=== PATIENT | female | born 1975 | race Caucasian/White ===

== ENCOUNTER 2018-05-05 12:47 | Emergency (ER) | payer OTHER, SELFPAY ==
[2018-05-05 12:48] VITALS: BP 147/97; PULSE 81; RESP 16; TEMP 37.1; O2SAT 98; BMI 22.3
[2018-05-05 12:57] VITALS: BP 148/99; PULSE 80; RESP 14; O2SAT 100
--- NOTE | 2018-05-05 13:08 | RAD_ITS ---
STUDY: X-RAY CHEST REASON FOR EXAM: Female, 43 years old. Chest pain. Prior bilateral mastectomy with reconstructive surgery. TECHNIQUE: PA and lateral views of the chest. COMPARISON: Comparison is made with prior study dated June 17, 2014. FINDINGS: EKG electrodes are seen. Surgical clips are seen in both axillary regions more prominent on the right side. The lungs are clear and expanded. There is no demonstrated pleural abnormality. Normal size heart. Normal mediastinum and anthony. Normal visualized pulmonary arteries. Normal visualized aortic arch and descending thoracic aorta. There is a mild dextroscoliosis of the thoracic spine. Normal visualized ribs, clavicles, and shoulders. There is no demonstrated abnormality of the visualized soft tissue structures of the upper abdomen. RAD/Chest PA and Lateral IMPRESSION: No acute abnormality is seen. Electronically Signed: Dakota Anaya MD at 13:56 EDT Tel [phone], Service support ,
[2018-05-05 13:25] LABS: Absolute Lymphocyte Count 1.52 X10^3/ul (0.83-4.51); Absolute Neutrophil Count 3.7 X10^3/uL (2.0-7.7); Basophil# 0.01 X10^3/uL; Basophil% 0.2 % (0-1); Eosinophil# 0.09 X10^3/uL; Eosinophils% 1.6 % (0-5); Hematocrit 37.8 % (37-47); Hemoglobin 13.1 g/dl (12.0-15.0); Lymphocyte # 1.52 X10^3/ul (4.0); Lymphocyte % 26.9 % (19-41); Mean Corp Hgb Conc 34.7 g/gl (32-36); Mean Corpuscular Hgb 31.6 pg (27.0-32.0); Mean Corpuscular Volume 91.1 fL (81-99); Mean Platelet Vol. 9.5 fl (6.2-12.0); Monocyte# 0.28 X10^3/uL; Neutrophil # 3.74 X10^3/uL (2.7-7.7); Neutrophil % 66.1 % (47-70); Platelet Count 208 K/mm3 (150-450); RBC Distribution Width CV 13.3 % (11.6-14.6); RBC Distribution Width SD 43.8 fl (35.1-43.9); Red Blood Count 4.15 M/mm3 (4.2-5.4); White Blood Count 5.7 K/mm3 (4.4-11.0)
--- NOTE | 2018-05-05 13:27 | EKG12_ITS ---
Test Reason : CP Blood Pressure : / mmHG Vent. Rate : 074 BPM Atrial Rate : 074 BPM P-R Int : 112 ms QRS Dur : 092 ms QT Int : 388 ms P-R-T Axes : 000 -49 048 degrees QTc Int : 430 ms Normal sinus rhythm Left anterior fascicular block Poor R wave progression Abnormal ECG Confirmed by NGUYEN SHIPMAN, KAY ([id number]), magazine editor MADHAVI LO ([id number]) on 05/07/2018 2:21:57 PM Referred By: Confirmed By:KAY CEDILLO MD
[2018-05-05 13:28] LABS: POSITIVE COUNT NO; POSITIVE DIFFERENTIAL NO; POSITIVE MORPHOLOGY NO
[2018-05-05 13:35] LABS: AST(SGOT) 16 U/L (15-37); Alanine Aminotransfer ALT/SGPT 17 U/L (13-56); Albumin, Serum 3.3 g/dL (3.2-5.0); Alkaline Phosphatase 59 U/L (45-117); Anion Gap 7 (5-15); BUN 13 mg/dL (7-18); BUN/Creat Ratio 14.1 RATIO (10-20); Calcium,Total 8.3 mg/dL (8.5-10.1); Chloride 105 mmol/L (98-107); Creatinine, Serum 0.92 mg/dL (0.55-1.02); EST Glomerular Filtration Rate 71 mL/min (>60); Est Glom Filt Rate - Afr Amer 86 mL/min (>60); Estimated Creatinine Clearance 72.41 ml/min; Globulin 3.4 g/dL (2.2-4.2); Glucose 97 mg/dL (74-106); Potassium 3.3 mmol/L (3.5-5.1); Protein, Total 6.7 g/dL (6.4-8.2); Sodium Level 140 mmol/L (136-145)
[2018-05-05 15:06] VITALS: BP 130/94; PULSE 69; RESP 16; O2SAT 99
--- NOTE | 2018-05-05 15:12 | ED.VISSUMM ---
- ER Visit Summary Date of Service: 05/05/18 Chief Complaint: Sharp intermittent mid chest pain with dyspnea History of Present Illness: The patient is a 43 F who is status post liver transplant and bilateral mastectomy. 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 She has remote history of PE and DVT. She denies fever, chills night sweats. She denies weight loss or weight gain. She denies ocular, visual or auditory symptoms. She denies history of reflux or hiatal hernia. She denies hematemesis, melena hematochezia. She denies food intolerance. She denies back pain. She denies leg pain, swelling discoloration. Please read written note for complete detail Physical Examination: Vital signs noted and blood pressure is slightly elevated 148/97. She admits she is slightly anxious. HEENT exam is unremarkable. Lungs are clear to auscultation with good movement of air bilaterally. Heart is regular without murmur, gallop or rub. There is no reproducible chest pain. There is no skin lesions. Abdomen is remarkable for well-healed remote incision. There is no hepatosplenomegaly. There is no tenderness, guarding or perineal findings. There is no CVA tenderness. Insert lower extremity DVT. Neuro exam is nonfocal. Test Results: EKG sinus rhythm rate of 74 with left anterior fascicular block and decreased anterior force. SD interval is normal. QRS duration is slightly prolonged. [place] is to the left. QT interval is normal. Two-view chest x-ray reveals no acute process. Breast implants noted. No infiltrate, effusion or pneumothorax. Mediastinum is normal. Cardiac silhouette is normal. CBC and hepatic are normal. Electro panels marked for a slight decrease in potassium, 3.3. Emergency Department Course and Treatment: Chest x-ray was obtained to evaluate for pneumothorax or other cause of chest pain. EKG to evaluate for cardiac ischemia. Also to evaluate for right heart strain in the event this would represent atypical presentation for pulmonary embolus. With 5 episodes of pain lasting less than 3-5 minutes in duration and described as sharp with negative workup plan is to discharge to home and follow-up with primary care provider. She informed me that her primary care finders has retired from the [facility]. Since all of her care has been at the [facility] she is requesting a [facility] position. Treatment Plan: Outpatient follow-up as needed Disposition: Discharged home Impression: Intermittent mid chest pain of unknown etiology Liver recipient History of malignant carcinoid History of breast cancer status post bilateral mastectomy This note was generated with [employer] dictation software. It may contain incorrect words, spelling, and punctuation that were not noted in review of the chart prior to signing ED Disposition - Plan for ED Patient: Disposition: Home or Assisted Living Chief Complaint: Chest Pain Instructions: ED Chest Pain NonCardiac Referrals: Care Physician,No Primary [Primary Care Provider] - Phillip Mata Jr. [HONORARY STAFF] - 3-5 Days
--- NOTE | 2018-05-05 15:16 | ED.DCSUM_ITS ---
- ER Visit Summary Date of Service: 05/05/18 Chief Complaint: Sharp intermittent mid chest pain with dyspnea History of Present Illness: The patient is a 43 F who is status post liver transplant and bilateral mastectomy. 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 She has remote history of PE and DVT. She denies fever, chills night sweats. She denies weight loss or weight gain. She denies ocular, visual or auditory symptoms. She denies history of reflux or hiatal hernia. She denies hematemesis, melena hematochezia. She denies food intolerance. She denies back pain. She denies leg pain, swelling discoloration. Please read written note for complete detail Physical Examination: Vital signs noted and blood pressure is slightly elevated 148/97. She admits she is slightly anxious. HEENT exam is unremarkable. Lungs are clear to auscultation with good movement of air bilaterally. Heart is regular without murmur, gallop or rub. There is no reproducible chest pain. There is no skin lesions. Abdomen is remarkable for well-healed remote incision. There is no hepatosplenomegaly. There is no tenderness, guarding or perineal findings. There is no CVA tenderness. Insert lower extremity DVT. Neuro exam is nonfocal. Test Results: EKG sinus rhythm rate of 74 with left anterior fascicular block and decreased anterior force. [place] interval is normal. QRS duration is slightly prolonged. [place] is to the left. QT interval is normal. Two-view chest x-ray reveals no acute process. Breast implants noted. No infiltrate, effusion or pneumothorax. Mediastinum is normal. Cardiac silhouette is normal. CBC and hepatic are normal. Electro panels marked for a slight decrease in potassium, 3.3. Emergency Department Course and Treatment: Chest x-ray was obtained to evaluate for pneumothorax or other cause of chest pain. EKG to evaluate for cardiac ischemia. Also to evaluate for right heart strain in the event this would represent atypical presentation for pulmonary embolus. With 5 episodes of pain lasting less than 3-5 minutes in duration and described as sharp with negative workup plan is to discharge to home and follow-up with primary care provider. She informed me that her primary care finders has retired from the [facility]. Since all of her care has been at the [facility] she is requesting a [facility] position. Treatment Plan: Outpatient follow-up as needed Disposition: Discharged home Impression: Intermittent mid chest pain of unknown etiology Liver recipient History of malignant carcinoid History of breast cancer status post bilateral mastectomy This note was generated with [employer] dictation software. It may contain incorrect words, spelling, and punctuation that were not noted in review of the chart prior to signing ED Disposition - Plan for ED Patient: Disposition: Home or Assisted Living Chief Complaint: Chest Pain Instructions: ED Chest Pain NonCardiac Referrals: Care Physician,No Primary [Primary Care Provider] - Phillip Mata Jr. [HONORARY STAFF] - 3-5 Days
[2018-05-05 15:23] VITALS: BP 130/94; PULSE 81; RESP 15; O2SAT 98
--- NOTE | 2018-05-05 15:23 | ED.RN ---
REVIEWED D/C INSTRUCTIONS, FOLLOW UP CARE, AND S/S THAT WOULD WARRANT A RETURN TO THE ED WITH PT. PT VERBALIZED AN UNDERSTANDING AND DENIES FURTHER QUESTIONS FOR THIS RN. PT SKIN P/W/D, RESP EVEN AND UNLABORED, PT A&O X 3, NO DISTRESS NOTED. PT AMBULATED OUT OF ED, GAIT STEADY.
== END 2018-05-05 15:24 | disposition home or self-care (01) ==
PROVIDERS: Emergency Provider Emergency Medicine
DX: R07.9 Chest pain, unspecified (principal); Z94.4 Liver transplant status; Z90.13 Acquired absence of bilateral breasts and nipples; Z85.05 Personal history of malignant neoplasm of liver; Z85.3 Personal history of malignant neoplasm of breast; Z86.711 Personal history of pulmonary embolism; Z86.718 Personal history of other venous thrombosis and embolism
CPT/HCPCS: 71046; 80053; 85025; 93005; 99284; A4216

== ENCOUNTER → 2018-06-07 07:00 | Outpatient (CLI) | payer OTHER, SELFPAY ==
--- NOTE | 2018-06-07 07:06 | CT_ITS ---
STUDY: CT MAXILLOFACIAL SINUSES REASON FOR EXAM: Female, 43 years old. Sinus polyps, congestion x 4 months, prior septoplasty.. RADIATION DOSAGE (If Supplied By Facility): CTDIvol = ( 29.38 ) mGy, DLP = ( 400.54 ) mGycm TECHNIQUE: The patient was scanned in a multi detector CT scanner. High resolution axial imaging was performed without the administration of intravenous contrast material. Sagittal and coronal images were reconstructed. Individualized dose optimization techniques were used for this CT. COMPARISON: None. FINDINGS: FRONTAL SINUSES: Normal aeration, without mucosal inflammatory disease. ETHMOIDAL SINUSES: Normal aeration, without mucosal inflammatory disease. MAXILLARY SINUSES: There is small right maxillary polyp versus mucous retention cyst. There is complete opacification of the left maxillary sinus with obstruction of the infundibulum. Additionally there is medial wall defect where soft tissue (measuring approximately 1.7 x 3.8 x 2.2 cm) and extends between the middle and inferior turbinates and extending posteriorly into the nasopharynx SPHENOIDAL SINUSES: Normal aeration, without mucosal inflammatory disease. There is patency of the bilateral maxillary infundibuli with normal uncinate processes, ethmoid bullae, and hiatus semilunaris. Normal bilateral middle turbinates. Normal bilateral inferior turbinates. There is mild deviation of the nasal septum. The visualized osseous structures are normal. The visualized bilateral orbital contents are normal. CT/Sinus/Facial Bone IMPRESSION: Left maxillary soft tissue extending into the nasal cavity and nasopharynx as described above. N.B. : The above information has been verbally conveyed by Jeremy Martinez MD to Berta Tapia NP, on 06/10/2018 11:24:26 (ET). Electronically Signed: Jeremy Martinez MD at 16:02 EDT Tel , Service support ,
== END ==
LOC: CT 07:01
PROVIDERS: Referring Provider Otolaryngology Otolaryngology/Facial Plastic Surgery; Visit Provider Otolaryngology Otolaryngology/Facial Plastic Surgery
DX: J33.9 Nasal polyp, unspecified (principal)
CPT/HCPCS: 70486

== ENCOUNTER → 2018-07-03 09:15 | Outpatient (CLI) | payer OTHER, SELFPAY ==
[2018-07-03 11:03] LABS: Hematocrit 39.4 % (37-47); Hemoglobin 13.5 g/dl (12.0-15.0); Mean Corp Hgb Conc 34.3 g/gl (32-36); Mean Corpuscular Hgb 31.7 pg (27.0-32.0); Mean Corpuscular Volume 92.5 fL (81-99); Platelet Count 206 K/mm3 (150-450); RBC Distribution Width CV 13.8 % (11.6-14.6); RBC Distribution Width SD 45.6 fl (35.1-43.9); Red Blood Count 4.26 M/mm3 (4.2-5.4); White Blood Count 6.4 K/mm3 (4.4-11.0)
[2018-07-03 11:06] LABS: Scan Indicated on CBC? Y/N NO
[2018-07-03 11:24] LABS: ALB/GLOB Ratio 0.9 RATIO (0.9-2.4); AST(SGOT) 17 U/L (15-37); Alanine Aminotransfer ALT/SGPT 21 U/L (13-56); Albumin, Serum 3.4 g/dL (3.2-5.0); Alkaline Phosphatase 62 U/L (45-117); Anion Gap 7 (5-15); BUN 12 mg/dL (7-18); BUN/Creat Ratio 16.9 RATIO (10-20); Calcium,Total 8.2 mg/dL (8.5-10.1); Chloride 105 mmol/L (98-107); Creatinine, Serum 0.71 mg/dL (0.55-1.02); EST Glomerular Filtration Rate 96 mL/min (>60); Est Glom Filt Rate - Afr Amer 116 mL/min (>60); Globulin 3.6 g/dL (2.2-4.2); Glucose 76 mg/dL (74-106); Potassium 3.6 mmol/L (3.5-5.1); Sodium Level 142 mmol/L (136-145)
== END ==
PROVIDERS: Referring Provider Otolaryngology; Visit Provider Otolaryngology
DX: Z01.818 Encounter for other preprocedural examination (principal)
CPT/HCPCS: 36415; 80053; 85027

== ENCOUNTER → 2018-07-08 16:11 | Outpatient (CLI) | payer OTHER, SELFPAY ==
--- NOTE | 2018-07-08 | ETH_PTH ---
PATIENT: GARETH GALLO LOC: [facility] U#:[id number] AGE/SX: 50/F ROOM: RE07/08/[address]: Dr. Harlan Ag MD : 1975 BED: DIS: SPEC #: [id number] RECD: 07/08/18 15:35 STATUS: ARLIN REQ #: [id number] NICHOLAS: 07/08/18 00:[address]: Harlan Ag DEPT: SURGICAL PATHOLOGY RECD BY: Stef Bautista ENTERED: 07/09/18 10:31 SP TYPE: ETH TISS OTHR DR: Dr. Katie Aragon MD No Primary Care Phys WASC Tissues: A - Ethmoid sinus, NOS B - Ethmoid sinus, NOS C - NASAL POLYP Procedures: Decalcification bone/plaque Surgery Specimen Level III Comments: @ Ordering doctor for SUIII edited from to @ by JESSE at 07/09/18 1546 @ Ordering doctor for SUIV edited from to @ by JESSE at 07/09/18 1546 @ Submitting doctor edited from to @ by JESSE at 07/09/18 1546 @ Originally on account #[id number] Req #[id number] HEADER OPERATION: Endoscopic sinus surgery, nasopharyngeal polypectomy PRE-OP DIAGNOSIS: Chronic pansinusitis, other polyp of sinus, nasal congestion, hypertrophy of nasal turbinates TISSUE SUBMITTED: A - Sinus contents left side, B - Sinus contents right side, C - Sinonasal mass MICROSCOPIC DIAGNOSIS A. Left sinus contents, excision: Consistent with chronic sinusitis. Fragments of bone with no pathologic change. B. Right sinus contents, excision: Consistent with chronic sinusitis. Fragments of bone with no pathologic change. C. Sinonasal mass: Fragments of benign sinonasal polyp, inflamed. AM:darline 07/16/18 MICROSCOPIC DESCRIPTION Slides are reviewed. GROSS DESCRIPTION A - Received in fixative is one container labeled with the patient's name and designated left side sinus contents. The specimen consists of multiple pieces of garrett soft tissue mixed with fragments of bone that in aggregate measure 3 x 2.5 x 0.3 cm. The entire specimen is submitted in one cassette after decalcification. B - Received in fixative is one container labeled with the patient's name and designated right side sinus contents. The specimen consists of multiple fragments of garrett-pink soft tissue mixed with fragments of bone that in aggregate measure 5 x 3 x 0.3 cm. The entire specimen is submitted in two cassettes after decalcification. C - Received in fixative is one container labeled with the patient's name and designated sinonasal mass. The specimen consists of a polypoid fragment of light garrett tissue measuring 5 x 3 x 1 cm. The specimen is totally submitted in four cassettes. / SJ:rg 07/09/18 TC:3 CPT: 81226 x3, 67790 x2
== END ==
PROVIDERS: Referring Provider Otolaryngology; Visit Provider Otolaryngology
DX: J32.4 Chronic pansinusitis (principal); J33.8 Other polyp of sinus; J34.3 Hypertrophy of nasal turbinates; R09.81 Nasal congestion
CPT/HCPCS: 88304; 88305; 88311

== ENCOUNTER 2018-07-08 19:53 | Emergency (ER) | payer OTHER, SELFPAY ==
[2018-07-08 19:54] VITALS: BP 174/107; PULSE 91; RESP 18; TEMP 36.8; O2SAT 98; BMI 23.8
[2018-07-08 20:52] VITALS: BP 162/101; PULSE 91; RESP 18; O2SAT 100
[2018-07-08 22:55] VITALS: BP 167/100; PULSE 78; RESP 15; O2SAT 99
[2018-07-08] MEDS: 0.9% Normal Saline 1,000 ML 150 ML IV (22:57)
[2018-07-08] MEDS: Labetalol 20 MG/4 ML Vial 10 MG IV (22:57)
[2018-07-08] MEDS: Ondansetron 4 MG/2 ML Vial IV (22:57)
--- NOTE | 2018-07-08 22:58 | ED.RN ---
medication scanner in room not working. charge nurse notified.
[2018-07-08 23:00] LABS: Absolute Lymphocyte Count 0.76 X10^3/ul (0.83-4.51); Absolute Neutrophil Count 9.1 X10^3/uL (2.0-7.7); Hematocrit 39.7 % (37-47); Hemoglobin 13.4 g/dl (12.0-15.0); Lymphocyte # 0.76 X10^3/ul (4.0); Lymphocyte % 7.4 % (19-41); Mean Corp Hgb Conc 33.8 g/gl (32-36); Mean Corpuscular Hgb 31.2 pg (27.0-32.0); Mean Corpuscular Volume 92.5 fL (81-99); Mean Platelet Vol. 9.3 fl (6.2-12.0); Monocyte# 0.41 X10^3/uL; Neutrophil # 9.06 X10^3/uL (2.7-7.7); Platelet Count 245 K/mm3 (150-450); RBC Distribution Width CV 13.5 % (11.6-14.6); RBC Distribution Width SD 45.9 fl (35.1-43.9); Red Blood Count 4.29 M/mm3 (4.2-5.4); White Blood Count 10.3 K/mm3 (4.4-11.0)
[2018-07-08 23:01] LABS: POSITIVE COUNT NO; POSITIVE DIFFERENTIAL NO; POSITIVE MORPHOLOGY NO
[2018-07-08] MEDS: HYDROmorphone 0.5 MG/0.5 ML SYRINGE IV (23:03)
[2018-07-08] MEDS: Tacrolimus Anhydrous 1 MG Capsule 3 MG PO (23:06)
[2018-07-08 23:07] LABS: International Normalized Ratio 1.1; Prothrombin Time (Protime)PT. 13.9 SECONDS (11.7-14.9)
[2018-07-08 23:08] LABS: Partial Thromboplast Time 26.5 Seconds (24.1-36.2)
[2018-07-08 23:13] LABS: Anion Gap 5 (5-15); BUN 14 mg/dL (7-18); BUN/Creat Ratio 20.2 RATIO (10-20); Calcium,Total 7.7 mg/dL (8.5-10.1); Chloride 102 mmol/L (98-107); Creatinine, Serum 0.69 mg/dL (0.55-1.02); EST Glomerular Filtration Rate 99 mL/min (>60); Est Glom Filt Rate - Afr Amer 120 mL/min (>60); Estimated Creatinine Clearance 96.55 ml/min; Glucose 118 mg/dL (74-106); Potassium 3.8 mmol/L (3.5-5.1); Sodium Level 135 mmol/L (136-145)
--- NOTE | 2018-07-08 23:39 | ED.VISSUMM ---
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 She is not currently on anticoagulants. Patient had surgery earlier today for nasal polyps and had stents placed by Dr. Rivera. Patient and family state her blood pressure was elevated following the surgery. She was given 2 doses of blood pressure meds prior to discharge. At that time the goal had been to keep her diastolic blood pressure less than 100. Patient presents tonight with blood pressure at home of 169/112 along with facial pain and headache. She has mild bleeding from her nose. She was told to expect some mild bleeding. Physical Examination: Blood pressure is 162/101, temperature 98.3, 81, respiratory rate 18, pulse ox 100% on room air. Patient sitting upright in bed. She is in no acute distress but does appear uncomfortable. Head and neck examination reveals a piece of gauze taped across the nares with some dried blood noted. She does have some mild blood in the bilateral nares at this time but no significant active bleeding. Posterior pharynx examination does not reveal any blood. Heart is regular rate and rhythm. Lung sounds are clear. Abdomen is soft nontender. Test Results: CBC and chemistry studies are unremarkable. Coags are normal. Emergency Department Course and Treatment: Patient had taken 1 tab of oxycodone shortly before arrival. She was given a small dose of Dilaudid, Zofran, and IV fluids. She was given 10 mg of IV labetalol. Repeat blood pressures are 154/94 and 148/93. Patient does not currently have a primary care physician. She will be given a prescription for Lopressor and will check her blood pressure twice a day. If blood pressure is greater than 160 systolic or 100 diastolic she is to take a dose. We are heading into a holiday weekend and she will not be able to establish care and have close follow-up, she was advised to return to the ER if symptoms worsen or any concerns arise. Treatment Plan: [] Disposition: Discharge Impression: 1. Postop pain 2. Hypertension, improved This note was generated with [employer] dictation software. It may contain incorrect words, spelling, and punctuation that were not noted in review of the chart prior to signing ED Disposition - Plan for ED Patient: Chief Complaint: Hypertension Referrals: Care Physician,Fidelia Primary [Primary Care Provider] -
--- NOTE | 2018-07-08 23:42 | ED.DCSUM_ITS ---
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 She is not currently on anticoagulants. Patient had surgery earlier today for nasal polyps and had stents placed by Dr. Rivera. Patient and family state her blood pressure was elevated following the surgery. She was given 2 doses of blood pressure meds prior to discharge. At that time the goal had been to keep her diastolic blood pressure less than 100. Patient presents tonight with blood pressure at home of 169/112 along with facial pain and headache. She has mild bleeding from her no se. She was told to expect some mild bleeding. Physical Examination: Blood pressure is 162/101, temperature 98.3, 81, respiratory rate 18, pulse ox 100% on room air. Patient sitting upright in bed. She is in no acute distress but does appear uncomfortable. Head and neck examination reveals a piece of gauze taped across the nares with some dried blood noted. She does have some mild blood in the bilateral nares at this time but no significant active bleeding. Posterior pharynx examination does not reveal any blood. Heart is regular rate and rhythm. Lung sounds are clear. Abdomen is soft nontender. Test Results: CBC and chemistry studies are unremarkable. Coags are normal. Emergency Department Course and Treatment: Patient had taken 1 tab of oxycodone shortly before arrival. She was given a small dose of Dilaudid, Zofran, and IV fluids. She was given 10 mg of IV labetalol. Repeat blood pressures are 154/94 and 148/93. Patient does not currently have a primary care physician. She will be given a prescription for Lopressor and will check her blood pressure twice a day. If blood pressure is greater than 160 systolic or 100 diastolic she is to take a dose. We are heading into a holiday weekend and she will not be able to establish care and have close follow-up, she was advised to return to the ER if symptoms worsen or any concerns arise. Treatment Plan: [] Disposition: Discharge Impression: 1. Postop pain 2. Hypertension, improved This note was generated with [employer] dictation software. It may contain incorrect words, spelling, and punctuation that were not noted in review of the chart prior to signing ED Disposition - Plan for ED Patient: Chief Complaint: Hypertension Referrals: Care Physician,No Primary [Primary Care Provider] -
--- NOTE | 2018-07-08 23:42 | ED.DEP ---
ED Disposition - Plan for ED Patient: Disposition: Home or Assisted Living Chief Complaint: Hypertension Instructions: ED Hypertension Poss Prescriptions: Metoprolol Tartrate [Lopressor (beta marnie)] 12.5 mg PO BID PRN #20 tablet PRN Reason: Blood Pressure Elevation Referrals: Phillip Mata III, MD [STAFF PHYSICIAN] - 1-2 Weeks Jac Ag MD [STAFF PHYSICIAN] -
[2018-07-09] VITALS: BP 148/100; PULSE 80; RESP 15; O2SAT 98
--- NOTE | 2018-07-09 00:01 | ED.RN ---
PTT GIVEN WRITTEN AND VERBAL DISCHARGE INSTRUCTIONS AND HOME GOING PRESCRIPTIONS. PT VERBALIZES UNDERSTANDING. PT EDUCATED TO TAKE BLOOD PRESSURE AND KEEP A LOG FOR FOLLOW UP WITH PCP. PT VERBALIZES UNDERSTANDING. IV D/C AND COVERED WITH 2X2 GAUZE. EDUCATED NOT TO DRIVE FOR 6 HOURS AT LEAST AFTER HAVING NARCOTIC MEDICATION. PT DRESSES SELF AND AMBULATES OUT OF DEPT WITH FAMILY. PT EDUCATED TO RETURN TO NEAREST ED WITH ANY NEW OR WORSENED SX.
== END 2018-07-09 00:04 | disposition home or self-care (01) ==
PROVIDERS: Emergency Provider Emergency Medicine
DX: I10 Essential (primary) hypertension (principal); G89.18 Other acute postprocedural pain; Z94.4 Liver transplant status; Z86.711 Personal history of pulmonary embolism; Z85.05 Personal history of malignant neoplasm of liver; Z85.3 Personal history of malignant neoplasm of breast; Z79.899 Other long term (current) drug therapy
CPT/HCPCS: 80048; 85025; 85610; 85730; 88304; 88305; 96361; 96374; 96375; 99285; J7030; A4216; J2405

== ENCOUNTER 2018-08-07 20:18 | Observation (INO) | payer OTHER, SELFPAY ==
[2018-08-07 20:18] VITALS: BP 165/111; PULSE 112; RESP 26; TEMP 36.9; O2SAT 100; BMI 24.0
[2018-08-07 20:43] LABS: Absolute Lymphocyte Count 1.56 X10^3/ul (0.83-4.51); Absolute Neutrophil Count 11.2 X10^3/uL (2.0-7.7); Basophil# 0.01 X10^3/uL; Basophil% 0.1 % (0-1); Eosinophil# 0.06 X10^3/uL; Eosinophils% 0.4 % (0-5); Hematocrit 40.7 % (37-47); Lymphocyte # 1.56 X10^3/ul (4.0); Lymphocyte % 11.6 % (19-41); Mean Corp Hgb Conc 34.4 g/gl (32-36); Mean Corpuscular Hgb 31.3 pg (27.0-32.0); Mean Corpuscular Volume 91.1 fL (81-99); Mean Platelet Vol. 9.3 fl (6.2-12.0); Monocyte# 0.51 X10^3/uL; Monocyte% 3.8 % (0-10); Neutrophil # 11.24 X10^3/uL (2.7-7.7); Neutrophil % 83.9 % (47-70); Platelet Count 245 K/mm3 (150-450); RBC Distribution Width CV 13.3 % (11.6-14.6); RBC Distribution Width SD 43.9 fl (35.1-43.9); Red Blood Count 4.47 M/mm3 (4.2-5.4); White Blood Count 13.4 K/mm3 (4.4-11.0)
--- NOTE | 2018-08-07 20:43 | CT_ITS ---
STUDY: CT ABDOMEN AND PELVIS WITHOUT CONTRAST REASON FOR EXAM: Female, 43 years old. Left flank pain. Hematuria. History of liver transplant 2008. RADIATION DOSAGE (If Supplied By Facility): CTDIvol = ( 6.37 ) mGy, DLP = ( 319.72 ) mGycm TECHNIQUE: Transaxial images were obtained from the dome of the diaphragm to the symphysis pubis without oral contrast, and without intravenous contrast. Sagittal and coronal images were reconstructed. Individualized dose optimization techniques were used for this CT. COMPARISON: None. FINDINGS: There is a 7 x 5 cm soft tissue nodule in the lingula. The lungs appear otherwise clear. The visualized portions of the heart are within normal limits. There are intact bilateral breast implants There is a right lobe of the liver consistent with renal transplant. There are surgical clips about the internal vena cava. There is no mass or intrahepatic biliary ductal dilatation. Normal gallbladder and extrahepatic biliary system. The spleen is borderline enlarged. Normal pancreas. Normal bilateral adrenal glands. Normal right kidney. There is mild stranding about the left renal hilum with slight prominence of the renal pelvis. There is stranding in the retroperitoneum along the course of the left ureter without evidence of filling defect. Normal visualized stomach. Normal small intestine. Normal colon. Surgical clips about the cecum suggesting prior appendectomy. Normal abdominal aorta. Normal inferior vena cava. Normal retroperitoneum. Normal urinary bladder. Normal uterus. There is evidence of tubal ligation. There is no adnexal mass. There is no free air or free fluid within the peritoneal cavity. Normal abdominal wall. Normal osseous structures. CT/Abdomen/Pelvis without Cont IMPRESSION: 1. Question minimal increase in size of the lingular nodule when compared to a CTA of the chest dated June 18, 2014. 2. Transplant liver without abnormality. 3. Borderline splenomegaly. 4. Prominence of the renal pelvis and ureter with associated stranding. There is no visualized obstructing opacity. The possibility of pyelonephritis, noncalcified stone or recently passed stone is considered. Electronically Signed: Jeffrey Clay DO at 21:40 EST Tel [phone], Service support ,
[2018-08-07 20:45] LABS: POSITIVE COUNT NO; POSITIVE DIFFERENTIAL NO; POSITIVE MORPHOLOGY NO
[2018-08-07 20:54] LABS: Anion Gap 11 (5-15); BUN 12 mg/dL (7-18); Calcium,Total 8.6 mg/dL (8.5-10.1); Chloride 104 mmol/L (98-107); EST Glomerular Filtration Rate 84 mL/min (>60); Est Glom Filt Rate - Afr Amer 101 mL/min (>60); Estimated Creatinine Clearance 83.27 ml/min; Glucose 116 mg/dL (74-106); Potassium 3.5 mmol/L (3.5-5.1); Sodium Level 137 mmol/L (136-145)
[2018-08-07] MEDS: 0.9% Normal Saline 1,000 ML 1000 ML IV (20:58)
[2018-08-07] MEDS: Ondansetron 4 MG/2 ML Vial IV (20:58)
[2018-08-07] MEDS: HYDROmorphone 1 MG/ML Syringe 0.5 MG IV (20:58)
[2018-08-07] MEDS: Ketorolac 15 MG/ML Vial IV (20:58)
[2018-08-07 21:02] LABS: Pregnancy, Serum, hCG Quali. NEGATIVE Negative (0-9 Nonpreg)
[2018-08-07 21:12] LABS: Mucous, Urine 0 SEEN /hpf (<or=2+); Squamous Epithelial Cells - UA 0 SEEN /hpf (5-10)
[2018-08-07 21:14] LABS: Color, Urine Yellow (Yellow); Glucose, Dipstick Normal (Normal); Ketone-Dipstick 5 mg/dl (Negative); Leukocyte Esterase-Dipstick 500 /ul (Negative); Nitrite-Dipstick Positive (Negative); Occult Blood-Urine 250 /ul (Negative); Protein-Dipstick 30 mg/dl (Negative); Urine Bilirubin Dipstick Negative (Negative); Urine Clarity Cloudy (Clear); Urine Urobilinogen Normal (Normal)
[2018-08-07 21:20] LABS: Red Blood Cells-Urine 25-50 SEEN /hpf (0-5); White Blood Cells 25-50 SEEN /hpf (0-5)
[2018-08-07 21:21] LABS: Bacteria RARE /hpf (None Seen)
[2018-08-07] MEDS: Ceftriaxone 1 GM/50 ML BAG IV (22:28)
[2018-08-07 22:29] VITALS: BP 117/80; PULSE 76; RESP 16; O2SAT 97
[2018-08-07 22:54] LABS: Lactic Acid 0.8 mmol/L (0.4-2.0)
--- NOTE | 2018-08-07 23:11 | HP.PCM_ITS ---
History of Present Illness Date of Admission: 08/07/18 Chief Complaint: Abdominal pain of a few hours duration The patient is a 43 year old F with past medical history of hypertension and carcinoid tumor status post liver transplant and bilateral mastectomy with breast reconstruction. She was admitted through the ED on 08/07/2018 with complaint of left-sided abdominal and flank pain which started this afternoon. Pain was rated about 10 out of 10, cramping, with no aggravating or relieving factors. She had associated nausea but no vomiting or diarrhea and denied any fever or chills. She denied any chest pain, any urinary symptoms such as frequency or dysuria but did admit to dark urine. Review of systems otherwise negative. In the ED, vitals were unremarkable. CBC showed mild leucocytosis of 13.4, and BMP madelin unremarkable. Abdominal CT showed prominence of the renal pelvis and ureter with associated stranding and no visualized obstructing opacity. UA showed white cell count of 25-50 with rare bacteria and leukocyte esterase of 500 as well as positive nitrites. She also had positive occult blood of 250. There is questionable minimal increase of lingula noted left liver. She is being admitted to be managed for pyelonephritis [] Past Medical History Past Medical History (Chronic Problems): Chronic Problems History of liver transplant (Chronic) Diarrhea (Chronic) likely due to the prograf History of migraine (Chronic) Allergies morphine Allergy (Verified 08/07/18 20:28) Rash vancomycin Allergy (Verified 08/07/18 20:28) Other Home Medications: Ambulatory Orders Medication Instructions Recorded Tacrolimus 3 mg PO BID 10/28/13 Metoprolol Tartrate [Lopressor 25 mg PO BID PRN 08/07/18 (beta marnie)] Surgical History: - - intestinal resection for carcinoid tumor and also a liver transplant for metastatic carcinoid Psychiatric History: No pertinent psych hx 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 Paternal History Items: Diabetes, Heart Disease, Hypertension, Stroke Review of Systems Constitutional: Denies: Anorexia, Chills, Fever, Malaise, Weakness, Fatigue Eyes: Denies: Blurred vision HEENT: Denies: Head Aches, Sinus Congestion, Sinus Drainage Cardiovascular: Denies: Chest Pain, Palpitations Respiratory: Denies: Cough, Shortness of breath at rest, Sputum production Gastrointestinal: Reports: Abdominal Pain, Nausea. Denies: Diarrhea, Dyspepsia, Melena, Vomiting Genitourinary: Reports: - - dark, concentrated urine. Denies: Dysuria, Frequency Musculoskeletal: Denies: Joint Pain, Joint Tenderness Skin: Denies: Rash, Wounds Neurological: Denies: Numbness, Tingling, Focal weakness Psychiatric: Denies: Anxiety, Depression, Homicidal Ideations, Suicidal Ideations Hematologic/ Lymphatic: Denies: Easy Bruising, Easy Bleeding VTE Information - Inpt Only VTE Present on Admission: No VTE Pharm Prophylaxis ordered?: Yes - Physical Exam General: Alert, Oriented x3, Cooperative, No apparent distress HEENT: Atraumatic, PERRLA, EOMI, Normocephalic Oral: Moist Mucosa Neck: Supple, No JVD, Negative Carotid Bruits Lungs: Clear to auscultation, Normal air movement, No rhonchi, No wheeze, No rales Cardiovascular: Regular rate, Regular Rhythm, Normal S1, Normal S2, No murmurs Abdomen: Bowel Sounds Present, Soft, Non Tender, Non-Distended, No Hepato- splenomegaly, - - no costophrenic angle tenderness Extremities: No clubbing, No cyanosis, No edema Skin: No rashes, No breakdown Musculoskeletal: No Tenderness to Palpation of Joints or Extremities Lymphatic: No Cervical, Supraclavicular, or Inguinal Adenopathy Neurological: Cranial nerves II-XII grossly intact, Neuro grossly intact, Motor Exam 5/5 strength throughout Psych/Mental Status: Normal Affect, Appropriate, Alert and oriented to time, place, person, mood and affect Vital Signs Temp Pulse Resp BP Pulse Ox 98.5 F 76 16 117/80 97 08/07/18 20:18 08/07/18 22:29 08/07/18 22:29 08/07/18 22:29 08/07/18 22:29 Oxygen Delivery Method Room Air Weight: 144 lb 13.499 oz Body Mass Index (BMI) 24.0 Laboratory Tests Past 24 Hrs 08/07/18 08/07/18 08/07/18 20:30 20:30 20:30 WBC 13.4 H RBC 4.47 Hgb 14.0 Hct 40.7 MCV 91.1 MCH 31.3 MCHC 34.4 RDW 13.3 RDW Differential 43.9 Plt Count 245 MPV 9.3 Immature Gran % (Auto) 0.200 Neut % (Auto) 83.9 H Lymph % (Auto) 11.6 L [place] % (Auto) 3.8 Eos % (Auto) 0.4 Baso % (Auto) 0.1 Absolute Neuts (auto) 11.2 H Absolute Lymphs (auto) 1.56 Total Counted Not Reportable Sodium 137 Potassium 3.5 Chloride 104 Carbon Dioxide 22.0 Anion Gap 11 BUN 12 Creatinine 0.80 Estim Creat Clear Calc 83.27 Est GFR (MDRD) Af Amer 101 Est GFR (MDRD) Non-Af 84 BUN/Creatinine Ratio 15.0 Glucose 116 H Lactic Acid Calcium 8.6 Serum , Qual NEGATIVE Urine Color Urine Clarity Urine pH Ur Specific [place] Urine Protein Urine Glucose (UA) Urine Ketones Urine Occult Blood Urine Nitrite Urine Bilirubin Urine Urobilinogen Ur Leukocyte Esterase Urine RBC Urine WBC Ur Squamous Epith Cells Urine Bacteria Urine Mucus 08/07/18 08/07/18 21:00 22:16 WBC RBC Hgb Hct MCV MCH MCHC RDW RDW Differential Plt Count MPV Immature Gran % (Auto) Neut % (Auto) Lymph % (Auto) [place] % (Auto) Eos % (Auto) Baso % (Auto) Absolute Neuts (auto) Absolute Lymphs (auto) Total Counted Sodium Potassium Chloride Carbon Dioxide Anion Gap BUN Creatinine Estim Creat Clear Calc Est GFR (MDRD) Af Amer Est GFR (MDRD) Non-Af BUN/Creatinine Ratio Glucose Lactic Acid 0.8 Calcium Serum , Qual Urine Color Yellow Urine Clarity Cloudy Urine pH 8.0 Ur Specific [place] 1.010 Urine Protein 30 H Urine Glucose (UA) Normal Urine Ketones 5 H Urine Occult Blood 250 H Urine Nitrite Positive H Urine Bilirubin Negative Urine Urobilinogen Normal Ur Leukocyte Esterase 500 H Urine RBC 25-50 SEEN Urine WBC 25-50 SEEN Ur Squamous Epith Cells 0 SEEN Urine Bacteria RARE Urine Mucus 0 SEEN Diagnostic Data Abdomen/Pelvis CT 08/07/18 20:43 IMPRESSION: 1. Question minimal increase in size of the lingular nodule when compared to a CTA of the chest dated June 18, 2014. 2. Transplant liver without abnormality. 3. Borderline splenomegaly. 4. Prominence of the renal pelvis and ureter with associated stranding. There is no visualized obstructing opacity. The possibility of pyelonephritis, noncalcified stone or recently passed stone is considered. Electronically Signed: Jeffrey Clay DO at 21:40 EST Tel [phone], Service support , Assessment/Plan All Active Problems Pulmonary emboli (Acute) History of malignant carcinoid tumor (Resolved) 43 y/o presenting with a complaint of right sided abdominal and flank pain 1. Left pyelonephritis * UA showed evidence of UTI * CT abdomen: Prominence of left renal pelvis and ureter with associated stranding. Normal right kidney. Minimal increase in lingular lung nodule compared to previous CT * has mild leucocytosis- wbc of 13.4 * admit to [facility] surg * urine cultures obtained * started on IV ceftriaxone in the ED; will admit for another 24 hours of IV antibiotics in light of her immunosuppressed state 9on tacrolimus) 2. Carcinoid tumor status post liver transplant and bilateral mastectomy and breast reconstruction * Stable. On tacrolimus. * 3. Hypertension: On metoprolol 25 mg twice daily. DVT prophylaxis: Heparin Code Visit OBSV E&M: 15506 Initial observation care L3
--- NOTE | 2018-08-07 23:13 | ED.DCSUM_ITS ---
- ER Visit Summary Date of Service: 08/07/18 Chief Complaint: Acute left-sided abdominal/flank pain History of Present Illness: The patient is a 43 F who has history of liver transplant secondary to carcinoid tumor. She is status post bilateral mastectomy and has a known lung soft tissue mass that has been followed. She denies history of renal or ureteral calculus. There is no family history of renal or ureteral calculus. She denies fever, chills night sweats. She denies visual, ocular auditory symptoms. She denies cardiac respiratory symptoms. She does not complain of abdominal pain and nausea. She also complains of dark urine with what appears to be blood and frequency. She denies rash or any lesions. She denies headache, weakness, anesthesia, paresthesia or motor weakness with this. She has no anticoagulant. She denies urticaria or angioedema. Physical Examination: Vital signs noted and unremarkable no red blood pressure 165/111. Heart rate 112. She is not febrile nor she hypoxic. She appears uncomfortable. She states she cannot find a position of comfort. Head is atraumatic normocephalic. Pupils are equal round reactive. Extraocular muscles are intact. TMs are pearly white with landmarks noted. Nares patent with no drainage. Posterior pharynx without erythema or exudate. Uvula is midline. There is no dysphonia or dysphasia. Trachea is midline. There is no stridor with auscultation of the neck. Heart is rapid and regular without murmur, gallop or rub. S1 and S2 are normal. Lungs are clear to auscultation with good movement of air bilaterally. Abdomen is remarkable tenderness left side. There is left-sided CVA tenderness. There is no skin lesions noted. She has well healed surgical scars. Lower extremity exam is unremarkable. Neuro exam is nonfocal. Test Results: White count is 13.4 thousand with 84 segs. Basic metabolic panel unremarkable. Urine is consistent with infection. Lactate is normal at 0.8. Emergency Department Course and Treatment: IV was established. She was medicated with 15 mg of Toradol IV push, Zofran and 0.5 mg of Dilaudid for her pain. She reported marked improvement. CT of the abdomen reveals pyelonephritis. Differential is obstructing ureteral stone. CVA tenderness and the fact that she is immune suppressed with history of carcinoid this may represent pyelonephritis, renal lesion, renal infarction etc. Treatment Plan: Patient received 1 g of Rocephin IV piggyback. Since she is immune suppressed with white count and meets criteria for sepsis hospitalist was paged for 23 observation to medical surgical floor Disposition: Medical surgical unit Impression: 1. Pyelonephritis acute 2. 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 Sepsis This note was generated with [employer] dictation software. It may contain incorrect words, spelling, and punctuation that were not noted in review of the chart prior to signing ED Disposition - Plan for ED Patient: Chief Complaint: Abd Pain Referrals: Zachary Tijerina MD [Primary Care Provider] -
[2018-08-07 23:19] VITALS: BP 126/79; PULSE 76; RESP 16; O2SAT 99
[2018-08-08 00:09] VITALS: BMI 23.5
[2018-08-08 00:21] VITALS: BP 133/83; PULSE 71; RESP 14; TEMP 36.8; O2SAT 99
[2018-08-08] MEDS: Ondansetron 4 MG/2 ML Vial IV (03:38)
--- NOTE | 2018-08-08 03:48 | NURSING ---
pt c/o right side abd pain 5/10 and nausea, call the hospitalist and got an order for toradol.
[2018-08-08] MEDS: Ketorolac 15 MG/ML Vial IV ×2 (04:16→18:45)
[2018-08-08 06:29] LABS: Absolute Lymphocyte Count 0.79 X10^3/ul (0.83-4.51); Absolute Neutrophil Count 8.9 X10^3/uL (2.0-7.7); Basophil# 0.01 X10^3/uL; Basophil% 0.1 % (0-1); Eosinophil# 0.03 X10^3/uL; Eosinophils% 0.3 % (0-5); Hematocrit 35.5 % (37-47); Hemoglobin 11.9 g/dl (12.0-15.0); Lymphocyte # 0.79 X10^3/ul (4.0); Lymphocyte % 7.7 % (19-41); Mean Corp Hgb Conc 33.5 g/gl (32-36); Mean Corpuscular Hgb 31.4 pg (27.0-32.0); Mean Corpuscular Volume 93.7 fL (81-99); Mean Platelet Vol. 9.9 fl (6.2-12.0); Monocyte# 0.46 X10^3/uL; Monocyte% 4.5 % (0-10); Neutrophil # 8.91 X10^3/uL (2.7-7.7); Neutrophil % 87.2 % (47-70); Platelet Count 189 K/mm3 (150-450); RBC Distribution Width CV 13.4 % (11.6-14.6); RBC Distribution Width SD 44.4 fl (35.1-43.9); Red Blood Count 3.79 M/mm3 (4.2-5.4); White Blood Count 10.2 K/mm3 (4.4-11.0)
[2018-08-08 06:33] LABS: POSITIVE COUNT NO; POSITIVE DIFFERENTIAL NO; POSITIVE MORPHOLOGY NO
[2018-08-08 06:45] LABS: Anion Gap 9 (5-15); BUN 8 mg/dL (7-18); BUN/Creat Ratio 13.4 RATIO (10-20); Calcium,Total 7.5 mg/dL (8.5-10.1); Chloride 108 mmol/L (98-107); EST Glomerular Filtration Rate 118 mL/min (>60); Est Glom Filt Rate - Afr Amer 142 mL/min (>60); Estimated Creatinine Clearance 111.03 ml/min; Glucose 90 mg/dL (74-106); Lipase 101 U/L (73-393); Potassium 3.4 mmol/L (3.5-5.1); Sodium Level 141 mmol/L (136-145)
[2018-08-08] MEDS: 0.9% Normal Saline 1,000 ML 125 ML IV (07:43)
[2018-08-08 09:19] VITALS: BP 126/77; PULSE 81; RESP 18; TEMP 37.3; O2SAT 98
[2018-08-08] MEDS: Ceftriaxone 1 GM/50 ML BAG IV ×2 (09:27→22:04)
[2018-08-08] MEDS: Enoxaparin 40 MG/0.4 ML Syringe SC (09:52)
[2018-08-08] MEDS: Tacrolimus Anhydrous 1 MG Capsule 3 MG PO ×2 (09:52→22:04)
--- NOTE | 2018-08-08 14:13 | PCM.PN.HOSP ---
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 She denies lower urinary tract symptoms including increased frequency, urgency, dysuria, burning micturition but has dark urine. UA showed white cell count of 25-50 with rare bacteria and leukocyte esterase of 500 as well as positive nitrites with CT findings of prominence of renal pelvis and ureter with associated stranding but no obstructing opacity consistent with left sided pyelonephritis. Vitals/I&O's: Vital Signs Temp Pulse Resp BP Pulse Ox 99.1 F 81 18 126/77 H 98 08/08/18 09:19 08/08/18 09:19 08/08/18 09:19 08/08/18 09:19 08/08/18 09:19 Oxygen Delivery Method Room Air Weight: 143 lb 4.807 oz Body Mass Index (BMI) 23.5 Intake and Output for Last 24 Hours 08/06/18 08/07/18 08/08/18 23:59 23:59 23:59 Intake Total 2178 / 2178 Output Total 1800 / 1800 Balance 378 / 378 General: Alert, Oriented x3, Cooperative HEENT: Atraumatic, PERRLA, EOMI, Normocephalic Neck: Supple, No JVD, Negative Carotid Bruits Lungs: Clear to auscultation, Normal air movement, No rhonchi, No wheeze, No rales Cardiovascular: Regular rate, Regular Rhythm, Normal S1, Normal S2, No murmurs Abdomen: Bowel Sounds Present, Soft, Non-Distended, Tender - Mild tenderness present in left flank. No renal angle fullness. No suprapubic tenderness., - - Status post liver transplant Extremities: No edema, Capillary Refill Less than 3 Seconds Skin: No rashes, No breakdown Musculoskeletal: No Tenderness to Palpation of Joints or Extremities Neurological: Cranial nerves II-XII grossly intact Psych/Mental Status: Normal Affect, Appropriate Microbiology Past 72 Hours 08/07/18 21:00 Urine, Clean Catch Urine Culture - Preliminary Presumptive E. coli Laboratory Results 08/07/18 20:30: WBC 13.4 H, RBC 4.47, Hgb 14.0, Hct 40.7, MCV 91.1, MCH 31.3, MCHC 34.4, RDW 13.3, RDW Differential 43.9, Plt Count 245, MPV 9.3, Immature Gran % (Auto) 0.200, Neut % (Auto) 83.9 H, Lymph % (Auto) 11.6 L, [place] % (Auto) 3.8, Eos % (Auto) 0.4, Baso % (Auto) 0.1, Absolute Neuts (auto) 11.2 H, Absolute Lymphs (auto) 1.56, Total Counted Not Reportable 08/07/18 20:30: Sodium 137, Potassium 3.5, Chloride 104, Carbon Dioxide 22.0, Anion Gap 11, BUN 12, Creatinine 0.80, Estim Creat Clear Calc 83.27, Est GFR (MDRD) Af Amer 101, Est GFR (MDRD) Non-Af 84, BUN/Creatinine Ratio 15.0, Glucose 116 H, Calcium 8.6 08/07/18 20:30: Serum , Qual NEGATIVE 08/07/18 21:00: Urine Color Yellow, Urine Clarity Cloudy, Urine pH 8.0, Ur Specific [place] 1.010, Urine Protein 30 H, Urine Glucose (UA) Normal, Urine Ketones 5 H, Urine Occult Blood 250 H, Urine Nitrite Positive H, Urine Bilirubin Negative, Urine Urobilinogen Normal, Ur Leukocyte Esterase 500 H, Urine RBC 25-50 SEEN, Urine WBC 25-50 SEEN, Ur Squamous Epith Cells 0 SEEN, Urine Bacteria RARE, Urine Mucus 0 SEEN 08/07/18 22:16: Lactic Acid 0.8 08/08/18 05:58: Sodium 141, Potassium 3.4 L, Chloride 108 H, Carbon Dioxide 24.0, Anion Gap 9, BUN 8, Creatinine 0.60, Estim Creat Clear Calc 111.03, Est GFR (MDRD) Af Amer 142, Est GFR (MDRD) Non-Af 118, BUN/Creatinine Ratio 13.4, Glucose 90, Calcium 7.5 L, Lipase 101 08/08/18 05:58: WBC 10.2, RBC 3.79 L, Hgb 11.9 L, Hct 35.5 L, MCV 93.7, MCH 31.4, MCHC 33.5, RDW 13.4, RDW Differential 44.4 H, Plt Count 189, MPV 9.9, Immature Gran % (Auto) 0.200, Neut % (Auto) 87.2 H, Lymph % (Auto) 7.7 L, [place] % (Auto) 4.5, Eos % (Auto) 0.3, Baso % (Auto) 0.1, Absolute Neuts (auto) 8.9 H, Absolute Lymphs (auto) 0.79 L, Total Counted Not Reportable Current Medications Enoxaparin Sodium (Lovenox) 40 mg SC DAILY@1000 JEREMY Last Admin: 08/08/18 09:52 Dose: 40 mg Sodium Chloride () 1,000 mls @ 125 mls/hr IV .Q8H JEREMY Stop: 08/08/18 16:08 Last Admin: 08/08/18 07:43 Dose: 125 mls/hr Ceftriaxone Sodium (Rocephin) 1 gm in 50 mls @ 100 mls/hr IV Q12 [facility] Last Admin: 08/08/18 09:27 Dose: 100 mls/hr Ketorolac Tromethamine (Toradol) 15 mg IV Q8H PRN PRN PRN Reason: PAIN Stop: 08/13/18 03:44 Last Admin: 08/08/18 04:16 Dose: 15 mg Magnesium Hydroxide (Milk Of Magnesia) 30 ml PO DAILY PRN PRN PRN Reason: Constipation Metoprolol Tartrate (Lopressor (Beta Antonio)) 25 mg PO BID PRN PRN Reason: BLOOD PRESSURE ELEVATION Ondansetron HCl (Zofran) 4 mg IV Q6H PRN PRN PRN Reason: NAUSEA Last Admin: 08/08/18 03:38 Dose: 4 mg Sodium Chloride () 5 - 15 ml IV UD PRN PRN Reason: SALINE FLUSH Tacrolimus (Prograf) 3 mg PO BID [facility] Last Admin: 08/08/18 09:52 Dose: 3 mg Medical Necessity - Tobacco Use Smoking Status: Never smoker Assessment/Plan All Active Problems Pulmonary emboli (Acute) History of malignant carcinoid tumor (Resolved) This is a 43-year-old female with history 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 She denies lower urinary tract symptoms including increased frequency, urgency, dysuria, burning micturition but has dark urine. UA showed white cell count of 25-50 with rare bacteria and leukocyte esterase of 500 as well as positive nitrites with CT findings of prominence of renal pelvis and ureter with associated stranding but no obstructing opacity consistent with left sided pyelonephritis. 1. Left-sided pyelonephritis: [facility]A findings as mentioned above.CT abdomen: Prominence of left renal pelvis and ureter with associated stranding. Normal right kidney. Minimal increase in lingular lung nodule compared to previous CT. Mild leukocytosis 13.4 thousand. Urine culture shows presumptive more than 100,000 E. coli. Full sensitivity report pending. Blood cultures are pending. Started on IV ceftriaxone. Supportive management for fever chills or nausea vomiting. 2. Carcinoid tumor status post liver transplant and bilateral mastectomy and breast reconstruction Stable. On tacrolimus. 3. Hypertension: On metoprolol 25 mg twice daily. Mild hypokalemia: Potassium replaced. DVT prophylaxis: Heparin Clinical Impression(s) from Imaging Studies Abdomen/Pelvis CT 08/07/18 20:43 IMPRESSION: 1. Question minimal increase in size of the lingular nodule when compared to a CTA of the chest dated June 18, 2014. 2. Transplant liver without abnormality. 3. Borderline splenomegaly. 4. Prominence of the renal pelvis and ureter with associated stranding. There is no visualized obstructing opacity. The possibility of pyelonephritis, noncalcified stone or recently passed stone is considered. Microbiology Past 72 Hours 08/07/18 21:00 Urine, Clean Catch Urine Culture - Preliminary Presumptive E. coli Laboratory Results 08/07/18 20:30: WBC 13.4 H, RBC 4.47, Hgb 14.0, Hct 40.7, MCV 91.1, MCH 31.3, MCHC 34.4, RDW 13.3, RDW Differential 43.9, Plt Count 245, MPV 9.3, Immature Gran % (Auto) 0.200, Neut % (Auto) 83.9 H, Lymph % (Auto) 11.6 L, [place] % (Auto) 3.8, Eos % (Auto) 0.4, Baso % (Auto) 0.1, Absolute Neuts (auto) 11.2 H, Absolute Lymphs (auto) 1.56, Total Counted Not Reportable 08/07/18 20:30: Sodium 137, Potassium 3.5, Chloride 104, Carbon Dioxide 22.0, Anion Gap 11, BUN 12, Creatinine 0.80, Estim Creat Clear Calc 83.27, Est GFR (MDRD) Af Amer 101, Est GFR (MDRD) Non-Af 84, BUN/Creatinine Ratio 15.0, Glucose 116 H, Calcium 8.6 08/07/18 20:30: Serum , Qual NEGATIVE 08/07/18 21:00: Urine Color Yellow, Urine Clarity Cloudy, Urine pH 8.0, Ur Specific [place] 1.010, Urine Protein 30 H, Urine Glucose (UA) Normal, Urine Ketones 5 H, Urine Occult Blood 250 H, Urine Nitrite Positive H, Urine Bilirubin Negative, Urine Urobilinogen Normal, Ur Leukocyte Esterase 500 H, Urine RBC 25-50 SEEN, Urine WBC 25-50 SEEN, Ur Squamous Epith Cells 0 SEEN, Urine Bacteria RARE, Urine Mucus 0 SEEN 08/07/18 22:16: Lactic Acid 0.8 08/08/18 05:58: Sodium 141, Potassium 3.4 L, Chloride 108 H, Carbon Dioxide 24.0, Anion Gap 9, BUN 8, Creatinine 0.60, Estim Creat Clear Calc 111.03, Est GFR (MDRD) Af Amer 142, Est GFR (MDRD) Non-Af 118, BUN/Creatinine Ratio 13.4, Glucose 90, Calcium 7.5 L, Lipase 101 08/08/18 05:58: WBC 10.2, RBC 3.79 L, Hgb 11.9 L, Hct 35.5 L, MCV 93.7, MCH 31.4, MCHC 33.5, RDW 13.4, RDW Differential 44.4 H, Plt Count 189, MPV 9.9, Immature Gran % (Auto) 0.200, Neut % (Auto) 87.2 H, Lymph % (Auto) 7.7 L, [place] % (Auto) 4.5, Eos % (Auto) 0.3, Baso % (Auto) 0.1, Absolute Neuts (auto) 8.9 H, Absolute Lymphs (auto) 0.79 L, Total Counted Not Reportable Active Medications Enoxaparin Sodium (Lovenox) 40 mg SC DAILY@1000 JEREMY Last Admin: 08/08/18 09:52 Dose: 40 mg Sodium Chloride () 1,000 mls @ 125 mls/hr IV .Q8H JEREMY Stop: 08/08/18 16:08 Last Admin: 08/08/18 07:43 Dose: 125 mls/hr Ceftriaxone Sodium (Rocephin) 1 gm in 50 mls @ 100 mls/hr IV Q12 [facility] Last Admin: 08/08/18 09:27 Dose: 100 mls/hr Ketorolac Tromethamine (Toradol) 15 mg IV Q8H PRN PRN PRN Reason: PAIN Stop: 08/13/18 03:44 Last Admin: 08/08/18 04:16 Dose: 15 mg Magnesium Hydroxide (Milk Of Magnesia) 30 ml PO DAILY PRN PRN PRN Reason: Constipation Metoprolol Tartrate (Lopressor (Beta [place])) 25 mg PO BID PRN PRN Reason: BLOOD PRESSURE ELEVATION Ondansetron HCl (Zofran) 4 mg IV Q6H PRN PRN PRN Reason: NAUSEA Last Admin: 08/08/18 03:38 Dose: 4 mg Sodium Chloride () 5 - 15 ml IV UD PRN PRN Reason: SALINE FLUSH Tacrolimus (Prograf) 3 mg PO BID [facility] Last Admin: 08/08/18 09:52 Dose: 3 mg Code Visit Inpatient E&M: 09898 [facility] L[facility]
--- NOTE | 2018-08-08 14:18 | PN_ITS ---
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 She denies lower urinary tract symptoms including increased frequency, urgency, dysuria, burning micturition but has dark urine. UA showed white cell count of 25-50 with rare bacteria and leukocyte esterase of 500 as well as positive nitr ites with CT findings of prominence of renal pelvis and ureter with associated stranding but no obstructing opacity consistent with left sided pyelonephritis. Vitals/I&O's: Vital Signs Temp Pulse Resp BP Pulse Ox 99.1 F 81 18 126/77 H 98 08/08/18 09:19 08/08/18 09:19 08/08/18 09:19 08/08/18 09:19 08/08/18 09:19 Oxygen Delivery Method Room Air Weight: 143 lb 4.807 oz Body Mass Index (BMI) 23.5 Intake and Output for Last 24 Hours 08/06/18 08/07/18 08/08/18 23:59 23:59 23:59 Intake Total 2178 / 2178 Output Total 1800 / 1800 Balance 378 / 378 General: Alert, Oriented x3, Cooperative HEENT: Atraumatic, PERRLA, EOMI, Normocephalic Neck: Supple, No JVD, Negative Carotid Bruits Lungs: Clear to auscultation, Normal air movement, No rhonchi, No wheeze, No rales Cardiovascular: Regular rate, Regular Rhythm, Normal S1, Normal S2, No murmurs Abdomen: Bowel Sounds Present, Soft, Non-Distended, Tender - Mild tenderness present in left flank. No renal angle fullness. No suprapubic tenderness., - - Status post liver transplant Extremities: No edema, Capillary Refill Less than 3 Seconds Skin: No rashes, No breakdown Musculoskeletal: No Tenderness to Palpation of Joints or Extremities Neurological: Cranial nerves II-XII grossly intact Psych/Mental Status: Normal Affect, Appropriate Microbiology Past 72 Hours 08/07/18 21:00 Urine, Clean Catch Urine Culture - Preliminary Presumptive E. coli Laboratory Results 08/07/18 20:30: WBC 13.4 H, RBC 4.47, Hgb 14.0, Hct 40.7, MCV 91.1, MCH 31.3, MCHC 34.4, RDW 13.3, RDW Differential 43.9, Plt Count 245, MPV 9.3, Immature Gran % (Auto) 0.200, Neut % (Auto) 83.9 H, Lymph % (Auto) 11.6 L, [place] % (Auto) 3.8, Eos % (Auto) 0.4, Baso % (Auto) 0.1, Absolute Neuts (auto) 11.2 H, Absolute Lymphs (auto) 1.56, Total Counted Not Reportable 08/07/18 20:30: Sodium 137, Potassium 3.5, Chloride 104, Carbon Dioxide 22.0, Anion Gap 11, BUN 12, Creatinine 0.80, Estim Creat Clear Calc 83.27, Est GFR (MDRD) Af Amer 101, Est GFR (MDRD) Non-Af 84, BUN/Creatinine Ratio 15.0, Glucose 116 H, Calcium 8.6 08/07/18 20:30: Serum , Qual NEGATIVE 08/07/18 21:00: Urine Color Yellow, Urine Clarity Cloudy, Urine pH 8.0, Ur Specific [place] 1.010, Urine Protein 30 H, Urine Glucose (UA) Normal, Urine Ketones 5 H, Urine Occult Blood 250 H, Urine Nitrite Positive H, Urine Bilirubin Negative, Urine Urobilinogen Normal, Ur Leukocyte Esterase 500 H, Urine RBC 25- 50 SEEN, Urine WBC 25-50 SEEN, Ur Squamous Epith Cells 0 SEEN, Urine Bacteria RARE, Urine Mucus 0 SEEN 08/07/18 22:16: Lactic Acid 0.8 08/08/18 05:58: Sodium 141, Potassium 3.4 L, Chloride 108 H, Carbon Dioxide 24.0, Anion Gap 9, BUN 8, Creatinine 0.60, Estim Creat Clear Calc 111.03, Est GFR (MDRD) Af Amer 142, Est GFR (MDRD) Non-Af 118, BUN/Creatinine Ratio 13.4, Glucose 90, Calcium 7.5 L, Lipase 101 08/08/18 05:58: WBC 10.2, RBC 3.79 L, Hgb 11.9 L, Hct 35.5 L, MCV 93.7, MCH 31.4, MCHC 33.5, RDW 13.4, RDW Differential 44.4 H, Plt Count 189, MPV 9.9, Immature Gran % (Auto) 0.200, Neut % (Auto) 87.2 H, Lymph % (Auto) 7.7 L, [place] % (Auto) 4.5, Eos % (Auto) 0.3, Baso % (Auto) 0.1, Absolute Neuts (auto) 8.9 H, Absolute Lymphs (auto) 0.79 L, Total Counted Not Reportable Current Medications Enoxaparin Sodium (Lovenox) 40 mg SC DAILY@1000 JEREMY Last Admin: 08/08/18 09:52 Dose: 40 mg Sodium Chloride () 1,000 mls @ 125 mls/hr IV .Q8H JEREMY Stop: 08/08/18 16:08 Last Admin: 08/08/18 07:43 Dose: 125 mls/hr Ceftriaxone Sodium (Rocephin) 1 gm in 50 mls @ 100 mls/hr IV Q12 ON LICENSE OF [facility] Last Admin: 08/08/18 09:27 Dose: 100 mls/hr Ketorolac Tromethamine (Toradol) 15 mg IV Q8H PRN PRN PRN Reason: PAIN Stop: 08/13/18 03:44 Last Admin: 08/08/18 04:16 Dose: 15 mg Magnesium Hydroxide (Milk Of Magnesia) 30 ml PO DAILY PRN PRN PRN Reason: Constipation Metoprolol Tartrate (Lopressor (Beta Antonio)) 25 mg PO BID PRN PRN Reason: BLOOD PRESSURE ELEVATION Ondansetron HCl (Zofran) 4 mg IV Q6H PRN PRN PRN Reason: NAUSEA Last Admin: 08/08/18 03:38 Dose: 4 mg Sodium Chloride () 5 - 15 ml IV UD PRN PRN Reason: SALINE FLUSH Tacrolimus (Prograf) 3 mg PO BID ON LICENSE OF [facility] Last Admin: 08/08/18 09:52 Dose: 3 mg Medical Necessity - Tobacco Use Smoking Status: Never smoker Assessment/Plan All Active Problems Pulmonary emboli (Acute) History of malignant carcinoid tumor (Resolved) This is a 43-year-old female with history 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 She denies lower urinary tract symptoms including increased frequency, urgency, dysuria, burning micturition but has dark urine. UA showed white cell count of 25-50 with rare bacteria and leukocyte esterase of 500 as well as positive nitrites with CT findings of prominence of renal pelvis and ureter with associated stranding but no obstructing opacity consistent with left sided pyelonephritis. 1. Left-sided pyelonephritis: [facility] UA findings as mentioned above.CT abdomen: Prominence of left renal pelvis and ureter with associated stranding. Normal right kidney. Minimal increase in lingular lung nodule compared to previous CT. Mild leukocytosis 13.4 thousand. Urine culture shows presumptive more than 100,000 E. coli. Full sensitivity report pending. Blood cultures are pending. Started on IV ceftriaxone. Supportive management for fever chills or nausea vomiting. 2. Carcinoid tumor status post liver transplant and bilateral mastectomy and breast reconstruction * Stable. On tacrolimus. 3. Hypertension: On metoprolol 25 mg twice daily. Mild hypokalemia: Potassium replaced. DVT prophylaxis: Heparin Clinical Impression(s) from Imaging Studies Abdomen/Pelvis CT 08/07/18 20:43 IMPRESSION: 1. Question minimal increase in size of the lingular nodule when compared to a CTA of the chest dated June 18, 2014. 2. Transplant liver without abnormality. 3. Borderline splenomegaly. 4. Prominence of the renal pelvis and ureter with associated stranding. There is no visualized obstructing opacity. The possibility of pyelonephritis, noncalcified stone or recently passed stone is considered. Microbiology Past 72 Hours 08/07/18 21:00 Urine, Clean Catch Urine Culture - Preliminary Presumptive E. coli Laboratory Results 08/07/18 20:30: WBC 13.4 H, RBC 4.47, Hgb 14.0, Hct 40.7, MCV 91.1, MCH 31.3, MCHC 34.4, RDW 13.3, RDW Differential 43.9, Plt Count 245, MPV 9.3, Immature Gran % (Auto) 0.200, Neut % (Auto) 83.9 H, Lymph % (Auto) 11.6 L, [place] % (Auto) 3.8, Eos % (Auto) 0.4, Baso % (Auto) 0.1, Absolute Neuts (auto) 11.2 H, Absolute Lymphs (auto) 1.56, Total Counted Not Reportable 08/07/18 20:30: Sodium 137, Potassium 3.5, Chloride 104, Carbon Dioxide 22.0, Anion Gap 11, BUN 12, Creatinine 0.80, Estim Creat Clear Calc 83.27, Est GFR (MDRD) Af Amer 101, Est GFR (MDRD) Non-Af 84, BUN/Creatinine Ratio 15.0, Glucose 116 H, Calcium 8.6 08/07/18 20:30: Serum , Qual NEGATIVE 08/07/18 21:00: Urine Color Yellow, Urine Clarity Cloudy, Urine pH 8.0, Ur Specific [place] 1.010, Urine Protein 30 H, Urine Glucose (UA) Normal, Urine Ketones 5 H, Urine Occult Blood 250 H, Urine Nitrite Positive H, Urine Bilirubin Negative, Urine Urobilinogen Normal, Ur Leukocyte Esterase 500 H, Urine RBC 25- 50 SEEN, Urine WBC 25-50 SEEN, Ur Squamous Epith Cells 0 SEEN, Urine Bacteria RARE, Urine Mucus 0 SEEN 08/07/18 22:16: Lactic Acid 0.8 08/08/18 05:58: Sodium 141, Potassium 3.4 L, Chloride 108 H, Carbon Dioxide 24.0, Anion Gap 9, BUN 8, Creatinine 0.60, Estim Creat Clear Calc 111.03, Est GFR (MDRD) Af Amer 142, Est GFR (MDRD) Non-Af 118, BUN/Creatinine Ratio 13.4, Glucose 90, Calcium 7.5 L, Lipase 101 08/08/18 05:58: WBC 10.2, RBC 3.79 L, Hgb 11.9 L, Hct 35.5 L, MCV 93.7, MCH 31.4, MCHC 33.5, RDW 13.4, RDW Differential 44.4 H, Plt Count 189, MPV 9.9, Immature Gran % (Auto) 0.200, Neut % (Auto) 87.2 H, Lymph % (Auto) 7.7 L, [place] % (Auto) 4.5, Eos % (Auto) 0.3, Baso % (Auto) 0.1, Absolute Neuts (auto) 8.9 H, Absolute Lymphs (auto) 0.79 L, Total Counted Not Reportable Active Medications Enoxaparin Sodium (Lovenox) 40 mg SC DAILY@1000 JEREMY Last Admin: 08/08/18 09:52 Dose: 40 mg Sodium Chloride () 1,000 mls @ 125 mls/hr IV .Q8H JEREMY Stop: 08/08/18 16:08 Last Admin: 08/08/18 07:43 Dose: 125 mls/hr Ceftriaxone Sodium (Rocephin) 1 gm in 50 mls @ 100 mls/hr IV Q12 ON LICENSE OF [facility] Last Admin: 08/08/18 09:27 Dose: 100 mls/hr Ketorolac Tromethamine (Toradol) 15 mg IV Q8H PRN PRN PRN Reason: PAIN Stop: 08/13/18 03:44 Last Admin: 08/08/18 04:16 Dose: 15 mg Magnesium Hydroxide (Milk Of Magnesia) 30 ml PO DAILY PRN PRN PRN Reason: Constipation Metoprolol Tartrate (Lopressor (Beta Antonio)) 25 mg PO BID PRN PRN Reason: BLOOD PRESSURE ELEVATION Ondansetron HCl (Zofran) 4 mg IV Q6H PRN PRN PRN Reason: NAUSEA Last Admin: 08/08/18 03:38 Dose: 4 mg Sodium Chloride () 5 - 15 ml IV UD PRN PRN Reason: SALINE FLUSH Tacrolimus (Prograf) 3 mg PO BID ON LICENSE OF [facility] Last Admin: 08/08/18 09:52 Dose: 3 mg Code Visit Inpatient E&M: 81191 [facility] H[facility] L3
[2018-08-08 15:19] VITALS: BP 134/89; PULSE 97; RESP 18; TEMP 36.6; O2SAT 99
[2018-08-08] MEDS: 0.9% NaCl Peripheral Flush Adult/Peds IV ×2 (18:45→22:04)
[2018-08-08 22:00] VITALS: BP 137/78; PULSE 85; RESP 16; TEMP 36.9; O2SAT 98
[2018-08-09 03:19] VITALS: BP 120/74; PULSE 78; RESP 16; TEMP 36.7; O2SAT 100
[2018-08-09 07:41] LABS: Anion Gap 8 (5-15); BUN 10 mg/dL (7-18); BUN/Creat Ratio 15.4 RATIO (10-20); Calcium,Total 8.2 mg/dL (8.5-10.1); Chloride 108 mmol/L (98-107); Creatinine, Serum 0.65 mg/dL (0.55-1.02); EST Glomerular Filtration Rate 107 mL/min (>60); Est Glom Filt Rate - Afr Amer 129 mL/min (>60); Estimated Creatinine Clearance 102.49 ml/min; Glucose 80 mg/dL (74-106); Potassium 3.7 mmol/L (3.5-5.1); Sodium Level 142 mmol/L (136-145)
[2018-08-09 09:28] VITALS: BP 129/88; PULSE 89; RESP 18; TEMP 36.9; O2SAT 97
[2018-08-09] MEDS: Ceftriaxone 1 GM/50 ML BAG IV (09:30)
[2018-08-09] MEDS: Tacrolimus Anhydrous 1 MG Capsule 3 MG PO (09:31)
[2018-08-09] MEDS: Enoxaparin 40 MG/0.4 ML Syringe SC (09:31)
[2018-08-09] MEDS: 0.9% NaCl Peripheral Flush Adult/Peds IV (09:32)
--- NOTE | 2018-08-09 10:26 | DCINST_ITS ---
You will use the following diet at home:: Regular Your food should be the consistency of: Regular Discharge Activity: Return to Normal Activity, May not drive while taking narcotic pain medications. Weight Bearing Status: Weight bearing as tolerated - ag Call your doctor if you observe: Fever of 101 or Higher, Inability to urinate, Inability to have a bowel movement, Shortness of breath, Swelling in the ankles, Chest pain Allergies/Adverse Reactions: Allergies morphine Allergy (Verified 08/08/18 00:12) red line up her arm vancomycin Allergy (Verified 08/08/18 00:12) red man syndrome Medications to take at Discharge Tacrolimus 3 mg PO BID 10/28/13 Metoprolol Tartrate [Lopressor (beta marnie)] 25 mg PO BID PRN 08/07/18 Cefadroxil 1 gm PO BID #16 tablet 08/09/18 The following prescriptions were given: Cefadroxil 1 gm PO BID #16 tablet Primary Care Physician: Zachary Tijerina MD [Primary Care Provider] - Please follow up with your Primary Care Physician in: in 1 week Test Results: Test results from this visit will be discussed in further detail at your follow- up appointment, if applicable.
--- NOTE | 2018-08-09 10:26 | PCM.DC.SUM ---
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 She denies lower urinary tract symptoms including increased frequency, urgency, dysuria, burning micturition but has dark urine. UA showed white cell count of 25-50 with rare bacteria and leukocyte esterase of 500 as well as positive nitrites with CT findings of prominence of renal pelvis and ureter with associated stranding but no obstructing opacity consistent with left sided pyelonephritis. 1. Left-sided pyelonephritis secondary to E. coli [facility]TI: [facility]A findings as mentioned above.CT abdomen: Prominence of left renal pelvis and ureter with associated stranding. Normal right kidney. Minimal increase in lingular lung nodule compared to previous CT. Mild leukocytosis 13.4 thousand. Urine culture shows presumptive more than 100,000 E. coli, pansensitive. Blood cultures negative for 48 hours. Started on IV ceftriaxone. Supportive management for fever chills or nausea vomiting. Patient is being discharged on cefadroxil 1 g twice daily for 8 more days to complete a total of 11 days. Patient was not given Levaquin to avoid interaction with tacrolimus. 2. Carcinoid tumor status post liver transplant and bilateral mastectomy and breast reconstruction Stable. On tacrolimus. Follow-up with PCP/transplant clinic to adjust the level of tacrolimus. 3. Hypertension: On metoprolol 25 mg twice daily. Mild hypokalemia: Potassium replaced. Repeat K3.7. DVT prophylaxis: Heparin Clinical Impression(s) from Imaging Studies Abdomen/Pelvis CT 08/07/18 20:43 IMPRESSION: 1. Question minimal increase in size of the lingular nodule when compared to a CTA of the chest dated June 18, 2014. 2. Transplant liver without abnormality. 3. Borderline splenomegaly. 4. Prominence of the renal pelvis and ureter with associated stranding. There is no visualized obstructing opacity. The possibility of pyelonephritis, noncalcified stone or recently passed stone is considered. Microbiology Past 72 Hours 08/07/18 21:00 Urine, Clean Catch Urine Culture - Final Presumptive E. coli Laboratory Results 08/09/18 06:54: Sodium 142, Potassium 3.7, Chloride 108 H, Carbon Dioxide 26.0, Anion Gap 8, BUN 10, Creatinine 0.65, Estim Creat Clear Calc 102.49, Est GFR (MDRD) Af Amer 129, Est GFR (MDRD) Non-Af 107, BUN/Creatinine Ratio 15.4, Glucose 80, Calcium 8.2 L Subjective: Seen and examined Patient denies flank pain or abdominal pain. No fever or chills. Urine culture finding of E. coli and antibiotic discussed with the patient. - Physical Exam General: Alert, Oriented x3, Cooperative HEENT: Atraumatic, PERRLA, EOMI, Normocephalic Neck: Supple, No JVD, Negative Carotid Bruits Lungs: Clear to auscultation, Normal air movement, No rhonchi, No wheeze, No rales Cardiovascular: Regular rate, Regular Rhythm, Normal S1, Normal S2, No murmurs Abdomen: Bowel Sounds Present, Soft, Non Tender, Non-Distended Extremities: No edema, Capillary Refill Less than 3 Seconds Skin: No rashes, No breakdown Musculoskeletal: No Tenderness to Palpation of Joints or Extremities Neurological: Cranial nerves II-XII grossly intact Psych/Mental Status: Normal Affect, Appropriate Vital Signs Temp Pulse Resp BP Pulse Ox 98.4 F 89 18 129/88 H 97 08/09/18 09:28 08/09/18 09:28 08/09/18 09:28 08/09/18 09:28 08/09/18 09:28 Oxygen Delivery Method Room Air Weight: 143 lb 4.807 oz Body Mass Index (BMI) 23.5 Intake and Output for Last 24 Hours 08/07/18 08/08/18 08/09/18 23:59 23:59 23:59 Intake Total 3981 / 3981 Output Total 3500 / 3500 300 / 300 Balance 481 / 481 -300 / -300 Microbiology Past 72 Hours 08/07/18 21:00 Urine Culture - Final Urine, Clean Catch Presumptive E. coli Laboratory Tests Past 24 Hrs 08/09/18 06:54 Sodium 142 Potassium 3.7 Chloride 108 H Carbon Dioxide 26.0 Anion Gap 8 BUN 10 Creatinine 0.65 Estim Creat Clear Calc 102.49 Est GFR (MDRD) Af Amer 129 Est GFR (MDRD) Non-Af 107 BUN/Creatinine Ratio 15.4 Glucose 80 Calcium 8.2 L Discharge Activity: Return to Normal Activity, May not drive while taking narcotic pain medications. Weight Bearing Status: Weight bearing as tolerated - ag Call your doctor if you observe: Fever of 101 or Higher, Inability to urinate, Inability to have a bowel movement, Shortness of breath, Swelling in the ankles, Chest pain Home Medications: Medications to take at Discharge Tacrolimus 3 mg PO BID 10/28/13 Metoprolol Tartrate [Lopressor (beta marnie)] 25 mg PO BID PRN 08/07/18 Cefadroxil 1 gm PO BID #16 tablet 08/09/18 Following Prescrptions Were Given to Patient: Cefadroxil 1 gm PO BID #16 tablet Primary Care Physician: Zachary iTjerina MD [Primary Care Provider] - Please follow up with your Primary Care Physician in: in 1 week Medical Necessity - Tobacco Use Smoking Status: Never smoker Meaningful Use Info Meaningful Use Diagnoses (Choose all that apply): None applicable Code Visit Inpatient E&M: 77686 [facility] Hosp
== END 2018-08-09 12:00 | disposition home or self-care (01) ==
LOC: ED 21:04 → MS3 23:51
PROVIDERS: Admitting Provider Student in an Organized Health Care Education/Training Program; Emergency Provider Emergency Medicine; Family Provider Internal Medicine; PCP Internal Medicine; Referring Provider Student in an Organized Health Care Education/Training Program; Visit Provider Internal Medicine
DX: N10 Acute pyelonephritis (principal); B96.20 Unspecified Escherichia coli [E. coli] as the cause of diseases classified elsewhere; Z94.4 Liver transplant status; E87.6 Hypokalemia; E34.0 Carcinoid syndrome; C7A.012 Malignant carcinoid tumor of the ileum; C7B.02 Secondary carcinoid tumors of liver; I10 Essential (primary) hypertension; Z90.13 Acquired absence of bilateral breasts and nipples; Z79.899 Other long term (current) drug therapy
CPT/HCPCS: 36415; 74176; 80048; 81001; 83605; 83690; 84703; 85025; 87040; 87086; 87088; 87186; 96361; 96365; 96366; 96375; 96376; 99218; 99281; J7030; A4216; G0378; J2405

== ENCOUNTER 2022-08-08 14:52 | Emergency (ER) | payer MEDICAID, SELFPAY ==
[2022-08-08 14:53] VITALS: BP 139/86; PULSE 86; RESP 15; TEMP 35.8; O2SAT 97; BMI 28.8
--- NOTE | 2022-08-08 15:11 | EX.ED.DYSGE1 ---
HPI History of Present Illness Chief Complaint: Nausea/Vomiting Informant: patient Onset/Context/Timing Onset: Days (2) Context: Gradual Onset Timing: Continuous Quality: headache Location: bifrontal Current Severity: Moderate Maximum Severity: Moderate Worsened by: nothing Relieved by: OTC medications a little Associated Symptoms Associated Symptoms: malaise, n/v Narrative Narrative: Over the past couple days patient has had bifrontal headache along with some nausea, she vomited once and had diarrhea once, no abdominal pain, chest pain, shortness of breath, coughing, or fevers. A family member that she was around recently had influenza A that he tested positive for, she was concerned maybe she got that, but she has not had a cough or a fever at this time. She has a history of migraines and states this is a different headache. There was no sudden onset, this was. No thunderclap or loss of consciousness associated with it, just nausea and vomiting. No vision changes, neurologic symptoms such as paresthesias, extremity weakness, confusion, vertigo. No ear symptoms. She states she has a history of getting headaches in the past when her blood pressure went up so she checked it today because her headache became worse today, it was in the 150s systolic in the low 100s diastolic, so she took extra doses of her metoprolol and amlodipine, but suspects that she vomited them both up shortly thereafter. She has a history of carcinoid, she states there are multiple spots in her body including her neck, her lung, that are suspected to be related and she sees a specialist that are following these. She had a liver transplant as a result, this was remote, she has had no issues with it or rejection, she is on tacrolimus and compliant with it. No recent fevers. No abdominal pain in the area of the liver or elsewhere. [facility] Medical History (Updated 08/08/22 @ 18:[address] Nirmal Amaya MD) Carcinoid tumor Diarrhea History of migraine Pulmonary emboli Home Medications tacrolimus 1 mg capsule, immediate-release 3 mg PO BID anti rejection 10/28/13 [History Last Taken 08/07/18 06:30] metoprolol tartrate 25 mg tablet 25 mg PO BID PRN Blood Pressure Elevation 08/07/18 [History Last Taken 08/07/18 06:30] cefadroxil 1 gram tablet 1 g PO BID #16 tabs 08/09/18 [Rx Last Taken Unknown] metoclopramide HCl 10 mg tablet 10 mg PO Q6H PRN nausea and vomiting #20 tabs 08/08/22 [Rx Last Taken Unknown] Allergy/AdvReac Type Severity Reaction Status Date / Time morphine Allergy red line Verified 08/08/22 14:53 up her arm vancomycin Allergy red man Verified 08/08/22 14:53 syndrome Surgical History (Updated 08/08/22 @ 15:[address] Nirmal Amaya MD) History of liver transplant Social History Smoking Status: Never smoker ROS ROS ED Constitutional Constitutional ED: Reports malaise; Denies chills or fever(s) Eyes Eyes: Denies blurry vision, change in vision or diplopia ENT ENT ED: Denies rhinorrhea or sore throat Cardiovascular Cardiovascular: Denies chest pain or palpitations Respiratory/Chest Respiratory/Chest: Denies cough or dyspnea Gastrointestinal Gastrointestinal: Reports nausea and vomiting; Denies abdominal pain or diarrhea Genitourinary Genitourinary ED: Denies dysuria or hematuria Musculoskeletal Musculoskeletal: Denies back pain or neck pain Integumentary Denies abscess or rash Neurologic Neurologic: Reports headache(s); Denies paresthesias or weakness Psychiatric Psychiatric: Denies anxiety or suicidal thoughts EXAM Physical Exam Const Vital Signs: 08/08/22 14:53 08/08/22 17:57 Temperature 96.4 F L Temperature Source Temporal Pulse Rate 86 Respiratory Rate 15 Blood Pressure 139/86 H Blood Pressure Mean 103 Pulse Ox 97 99 Oxygen Delivery Method Room Air Room Air Positive well nourished and well developed General Appearance ED: well developed and NAD HEENT Reports moist mucous membranes normocephalic and atraumatic Eyes PERRL and EOMs intact bilaterally Neck full ROM, no lymphadenopathy and supple Resp normal respiratory effort and clear to auscultation bilaterally Cardio regular rate, regular rhythm and no murmurs Rate: Negative for tachycardic GI non-tender and non-distended Auscultation: normoactive bowel sounds Palpation: soft Back/Spine no CVA tenderness General Back: other FROM Extremity normal to inspection General Extremety ED: Negative for edema, pulses abnormal or tenderness General Extremity: Negative for edema or pulses abnormal Neuro oriented x3, CN's II-XII intact bilaterally and no sensory deficits noted Sensorium / Orientation: awake and alert Motor Exam: strength 5/5 throughout Skin no rashes or lesions noted and no wounds MDM MDM MDM Narrative Medical decision making narrative: Patient's vital signs are normal here including a blood pressure of 139/86, relatively/acutely. She does not have respiratory symptoms nor hypoxemia. She appears relatively well. Given her exposure to influenza A and high prevalence in the community recently, I discussed my plan of testing her for that first and treating her nausea, and going forward to consider other possibilities as etiology for her symptoms such as carcinoid tumor in her brain or metabolic disturbance if her influenza is negative and she agreed with that plan I thought that was reasonable. Her influenza swab was negative, so I did go forward with ordering a metabolic work-up in addition to CT with and without contrast of her brain. In the meantime, an IV was placed, and she was given Toradol and Reglan for her symptoms. Afterwards, she felt much better, she stated that her headache was 90% gone and no more nausea. She appears to feel better. Her work-up is negative including her labs and CT. Differential here includes viral syndrome other than influenza, I do not think she needs to have a COVID test, or this could be a migraine that is different than her usual ones. We will prescribe her Reglan to use if she does not have resolution of symptoms the next 24 hours and a neck case outpatient follow-up would be advised. She is comfortable with that plan. Lab Data Attestation: I reviewed the patient's lab results. Labs: Laboratory Results - last 24 hr 08/08/22 08/08/22 16:46 16:46 WBC 11.6 H RBC 4.47 Hgb 13.6 Hct 41.1 MCV 91.9 MCH 30.4 MCHC 33.1 RDW Std Deviation 45.2 H RDW Coeff of Josy 13.3 Plt Count 267 MPV 9.3 Immature Gran % (Auto) 0.500 Neut % (Auto) 85.8 H Lymph % (Auto) 10.2 L Hardin % (Auto) 2.5 Eos % (Auto) 0.7 Baso % (Auto) 0.3 Absolute Neuts (auto) 10.0 H Absolute Lymphs (auto) 1.19 Nucleated RBC % 0 Sodium 138 Potassium 4.3 Chloride 103 Carbon Dioxide 31.0 Anion Gap 4 L BUN 16 Creatinine 0.80 Estim Creat Clear Calc 79.91 Est GFR (MDRD) Af Amer 99 Est GFR (MDRD) Non-Af 82 BUN/Creatinine Ratio 19.9 Glucose 132 H Calcium 8.8 Radiography Diagnostic Testing: Clinical Impression(s) from Imaging Studies Brain CT 08/08/22 16:37 IMPRESSION: Negative head/brain CT without and with intravenous contrast. Electronically Signed: Ronnie Arias MD at 18:04 EST , Discharge Plan Triage Chief Complaint: Nausea/Vomiting ED Provider: Nirmal Amaya Dx/Rx/DC Orders Clinical Impression: Acute headache, Vomiting, Acquired immunocompromised state, Personal history of malignant carcinoid tumor Instructions: Self-Care for Headaches Prescriptions: New metoclopramide HCl [metoclopramide HCl] 10 mg tablet 10 mg PO Q6H PRN (Reason: nausea and vomiting) Qty: 20 0RF No Action tacrolimus 1 MG capsule 3 mg PO BID Label Comments: Antirejection medication metoprolol tartrate 25 MG tablet 25 mg PO BID PRN (Reason: Blood Pressure Elevation) Rx Instructions: Take twice daily for BP> 160/100 cefadroxil 1 GM tablet 1 g PO BID Qty: 16 0RF Primary Care Provider: Zachary Tijerina Referrals: Zachary Tijerina MD [Primary Care Provider] - 3-5 Days if not improving Disposition Disposition: Home, Self Care
[2022-08-08] MEDS: Ondansetron ODT 4 MG Tablet 8 MG PO (15:20)
--- NOTE | 2022-08-08 16:37 | CT_ITS ---
EXAM: CT HEAD WITHOUT AND WITH INTRAVENOUS CONTRAST CLINICAL INDICATION: headache/vomiting, immunocompromised, hx Carcinoid TECHNIQUE: Multiple axial images were obtained of the head without and with intravenous contrast. This CT exam was performed using one or more of the following dose reduction techniques: automated exposure control, adjustment of the mA and/or kV according to patient size, and/or use of iterative reconstruction technique. This report was created using [employer] report generation technology. CONTRAST: 50 CC ISOVUE 370 COMPARISON: None. FINDINGS: BRAIN AND EXTRA-AXIAL SPACES: Unremarkable. No intra- or extra-axial hemorrhage. No evidence of acute infarct. No intracranial mass or mass effect. There is preservation of the call/white matter interface. Posterior fossa structures are unremarkable. Ventricles are appropriate for age. No hydrocephalus. Basal cisterns are patent. BONES/JOINTS: Unremarkable. No discrete lytic or blastic abnormalities. SINUSES: Unremarkable as visualized. Clear. MASTOID AIR CELLS: Unremarkable. Clear. ORBITS: Visualized globes, extraocular muscles, optic nerves and retrobulbar fat appear unremarkable. CT/Brain/Head W/WO Contrast IMPRESSION: Negative head/brain CT without and with intravenous contrast. Electronically Signed: Ronnie Arias MD at 18:04 EST ,
[2022-08-08 16:57] LABS: Absolute Lymphocyte Count 1.19 X10^3/uL (0.83-4.51); Basophil# 0.03 X10^3/uL; Basophil% 0.3 % (0-1); Eosinophil# 0.08 X10^3/uL; Eosinophils% 0.7 % (0-5); Hematocrit 41.1 % (37-47); Hemoglobin 13.6 g/dL (12.0-15.0); Lymphocyte # 1.19 X10^3/ul (0.83-4.51); Lymphocyte % 10.2 % (19-41); Mean Corp Hgb Conc 33.1 g/dL (32-36); Mean Corpuscular Hgb 30.4 pg (27.0-32.0); Mean Corpuscular Volume 91.9 fL (81-99); Mean Platelet Vol. 9.3 fl (6.2-12.0); Monocyte# 0.29 X10^3/uL; Monocyte% 2.5 % (0-10); NRBC Flagged by Analyzer 0 % (0-5); Neutrophil # 9.97 X10^3/uL (2.7-7.7); Neutrophil % 85.8 % (47-70); Platelet Count 267 K/mm3 (150-450); RBC Distribution Width CV 13.3 % (11.6-14.6); RBC Distribution Width SD 45.2 fl (35.1-43.9); Red Blood Count 4.47 M/mm3 (4.2-5.4); White Blood Count 11.6 K/mm3 (4.4-11.0)
[2022-08-08] MEDS: Ketorolac 30 MG/ML Syringe IV (17:03)
[2022-08-08] MEDS: Metoclopramide 10 MG/2 ML Vial 5 MG IV (17:03)
[2022-08-08 17:21] LABS: Anion Gap 4 (5-15); BUN 16 mg/dL (7-18); BUN/Creat Ratio 19.9 RATIO (10-20); Calcium,Total 8.8 mg/dL (8.5-10.1); Chloride 103 mmol/L (98-107); EST Glomerular Filtration Rate 82 mL/min (>60); Est Glom Filt Rate - Afr Amer 99 mL/min (>60); Estimated Creatinine Clearance 79.91 ml/min; Glucose 132 mg/dL (74-106); Potassium 4.3 mmol/L (3.5-5.1); Sodium Level 138 mmol/L (136-145)
[2022-08-08 17:57] VITALS: O2SAT 99
== END 2022-08-08 18:28 | disposition home or self-care (01) ==
PROVIDERS: Emergency Provider Emergency Medicine; PCP Internal Medicine; Visit Provider Emergency Medicine
DX: D84.9 Immunodeficiency, unspecified (principal); C7B.09 Secondary carcinoid tumors of other sites; C7A.090 Malignant carcinoid tumor of the bronchus and lung; R11.2 Nausea with vomiting, unspecified; R19.7 Diarrhea, unspecified; R51.9 Headache, unspecified
CPT/HCPCS: 70470; 80048; 85025; 87804; 96372; 99283; J7030; Q9967; A4216

== ENCOUNTER 2023-01-27 23:13 | Emergency (ER) | payer MEDICAID, SELFPAY ==
[2023-01-27 23:14] VITALS: BP 143/95; PULSE 83; RESP 15; TEMP 36.6; O2SAT 97; BMI 29.7
--- NOTE | 2023-01-28 00:32 | EX.ED.DYSGE1 ---
HPI History of Present Illness Chief Complaint: Bite Informant: patient Narrative Narrative: Patient is a 47-year-old female with past medical history of cancer who receives monthly injections. She states that she has a new litter of puppies and this evening they attacked the runt and she broke them apart and in doing so was bitten in the left hand. Patient states that she is right-hand dominant but with her history of cancer and dog bite to the left hand she is concerned for infection and therefore comes in for evaluation. Patient states that her dogs are up-to-date on all of their vaccinations and she denies any numbness tingling or weakness. [facility] Medical History (Updated 01/28/23 @ 00:[address] William Khoury, DO) Carcinoid tumor Diarrhea History of migraine Pulmonary emboli Home Medications tacrolimus 1 mg capsule, immediate-release 3 mg PO BID anti rejection 10/28/13 [History Last Taken 08/07/18 06:30] metoprolol tartrate 25 mg tablet 25 mg PO BID PRN Blood Pressure Elevation 08/07/18 [History Last Taken 08/07/18 06:30] cefadroxil 1 gram tablet 1 g PO BID #16 tabs 08/09/18 [Rx Last Taken Unknown] metoclopramide HCl 10 mg tablet 10 mg PO Q6H PRN nausea and vomiting #20 tabs 08/08/22 [Rx Last Taken Unknown] amoxicillin 875 mg-potassium clavulanate 125 mg tablet 1 tab PO BID 10 days #20 tabs 01/28/23 [Rx Last Taken Unknown] Allergy/AdvReac Type Severity Reaction Status Date / Time morphine Allergy red line Verified 01/27/23 23:18 up her arm vancomycin Allergy red man Verified 01/27/23 23:19 syndrome Surgical History (Updated 01/27/23 @ 23:57 by Berta Klein) History of liver transplant History of mastectomy Social History Smoking Status: Never smoker ROS ROS ED Constitutional Constitutional ED: Denies chills or fever(s) ENT ENT ED: Denies sore throat Cardiovascular Cardiovascular: Denies chest pain Respiratory/Chest Respiratory/Chest: Denies cough or dyspnea Gastrointestinal Gastrointestinal: Denies abdominal pain, diarrhea, nausea or vomiting Genitourinary Genitourinary ED: Denies dysuria Musculoskeletal Musculoskeletal: Reports other Details: Positive left hand pain Integumentary Reports Abrasions Neurologic Neurologic: Denies headache(s), paresthesias or weakness Hematologic/Lymphatic Hematologic/Lymphatic: Denies easy bleeding or easy bruising EXAM Physical Exam Const Vital Signs: 01/27/23 23:14 Temperature 97.9 F Temperature Source Temporal Pulse Rate 83 Respiratory Rate 15 Blood Pressure 143/95 H Blood Pressure Mean 111 Pulse Ox 97 Oxygen Delivery Method Room Air Positive well nourished and well developed General Appearance ED: well developed Eyes PERRL and EOMs intact bilaterally Neck supple Resp normal respiratory effort and clear to auscultation bilaterally Cardio regular rate and regular rhythm Extremity Extremity Narrative: Left upper extremity is neurovascularly intact; AIN/PIN are intact and normal. Patient has full active range of motion. No obvious bony deformity or joint effusion is noted. No ligamentous or tendon injury. No subungual hematoma. Patient has a dermal layer abrasion/laceration along the lateral aspect of her left index finger and there are superficial puncture mendez along the dorsal aspect of her left hand near the second and third MCP. No surrounding erythema or warmth no active bleeding or retained foreign body no lymphangitic streaking. Neuro oriented x3, CN's II-XII intact bilaterally and no sensory deficits noted Sensorium / Orientation: alert Motor Exam: strength 5/5 throughout Psych mental status grossly normal Skin Skin Narrative: Soft tissue changes of the left hand as documented above without obvious signs of secondary infection at this point MDM MDM MDM Narrative Medical decision making narrative: Patient presented to the ER with report of dog bite to the left hand. Differential diagnosis includes superficial abrasion/laceration versus bone fracture versus retained foreign body versus cellulitis. At this time the dog bite is only a few hours old she has no signs of ligamentous or tendon injury she has no bony deformity and therefore concern for underlying bony injury is low and there is no need for an x-ray. The wounds are not deep enough to support a retained foreign body so I do not feel there is need to search for this either. At this time there is no overt infection as there is no surrounding erythema streaking or discharge but with her immunosuppressed state from history of cancer she will be placed on Augmentin to prevent infection and is otherwise safe for discharge History & Record Review Discussion w/independent historian: Patient Discharge Plan Triage Chief Complaint: Bite ED Provider: Andes,William Dx/Rx/DC Orders Clinical Impression: Dog bite of left hand without complication Instructions: ED Dog Bite Prescriptions: New amoxicillin-pot clavulanate 875-125 mg tablet 1 tab PO BID 10 Days Qty: 20 0RF No Action tacrolimus 1 MG capsule 3 mg PO BID Label Comments: Antirejection medication metoprolol tartrate 25 MG tablet 25 mg PO BID PRN (Reason: Blood Pressure Elevation) Rx Instructions: Take twice daily for BP> 160/100 cefadroxil 1 GM tablet 1 g PO BID Qty: 16 0RF metoclopramide HCl [metoclopramide HCl] 10 mg tablet 10 mg PO Q6H PRN (Reason: nausea and vomiting) Qty: 20 0RF Primary Care Provider: Zachary Tijerina Referrals: Zachary Tijerina MD [Primary Care Provider] - Activity Restrictions/Additional Instructions: Please continue to wash the wound with soap and water and take antibiotic as directed to prevent infection. If you notice increased redness swelling or lymphangitic streaking please return to the ER for repeat evaluation Disposition Disposition: Home, Self Care Discharge Date/Time: 01/28/23 00:38
[2023-01-28] MEDS: Amox/Clavulanate 875 MG Tablet PO (00:35)
== END 2023-01-28 00:38 | disposition home or self-care (01) ==
PROVIDERS: Emergency Provider Emergency Medicine; PCP Internal Medicine; Visit Provider Emergency Medicine
DX: S61.452A Open bite of left hand, initial encounter (principal); D84.9 Immunodeficiency, unspecified; W54.0XXA Bitten by dog, initial encounter; Z85.9 Personal history of malignant neoplasm, unspecified
CPT/HCPCS: 99283

== ENCOUNTER 2023-02-27 13:01 | Emergency (ER) | payer MEDICAID, SELFPAY ==
[2023-02-27 13:02] VITALS: BP 150/95; PULSE 75; RESP 18; TEMP 36.6; O2SAT 100; BMI 29.1
--- NOTE | 2023-02-27 13:04 | EKG12_ITS ---
Test Reason : CP/SOB Blood Pressure : / mmHG Vent. Rate : 067 BPM Atrial Rate : 067 BPM P-R Int : 098 ms QRS Dur : 090 ms QT Int : 406 ms P-R-T Axes : -29 -32 036 degrees QTc Int : 429 ms Sinus rhythm with short OK Left axis deviation Abnormal ECG Confirmed by RACHEL SHIPMAN, JOHN ([id number]), editor book JERRI CHILEL ([id number]) on 02/28/2023 2:22:33 PM Referred By: BASILIO/ROLA Confirmed By:JOHN RAMOS MD
--- NOTE | 2023-02-27 13:04 | RAD_ITS ---
EXAM: XR CHEST, 1 VIEW CLINICAL INDICATION: chest pain TECHNIQUE: Frontal view of the chest. COMPARISON: XR Chest dated 05/05/2018 FINDINGS: LUNGS AND PLEURAL SPACES: Normal. No consolidation or edema. No pneumothorax. No effusion. HEART: Normal heart size. MEDIASTINUM: No mediastinal or hilar mass. BONES/JOINTS: Stable mild scoliosis. RAD/Chest 1 View (Portable) IMPRESSION: No acute cardiopulmonary abnormality. No interval change. Electronically Signed: Marc Nino MD at 14:04 EDT ,
[2023-02-27 13:34] LABS: Absolute Lymphocyte Count 2.12 X10^3/uL (0.83-4.51); Absolute Neutrophil Count 6.1 X10^3/uL (2.0-7.7); Basophil# 0.03 X10^3/uL; Basophil% 0.3 % (0-1); Eosinophil# 0.18 X10^3/uL; Eosinophils% 2.1 % (0-5); Hematocrit 41.5 % (37-47); Hemoglobin 13.3 g/dL (12.0-15.0); Lymphocyte # 2.12 X10^3/ul (0.83-4.51); Lymphocyte % 24.1 % (19-41); Mean Corpuscular Hgb 29.8 pg (27.0-32.0); Mean Platelet Vol. 10.1 fl (6.2-12.0); Monocyte# 0.35 X10^3/uL; NRBC Flagged by Analyzer 0 % (0-5); Neutrophil # 6.07 X10^3/uL (2.7-7.7); Neutrophil % 69.2 % (47-70); Platelet Count 254 K/mm3 (150-450); RBC Distribution Width CV 13.2 % (11.6-14.6); RBC Distribution Width SD 44.9 fl (35.1-43.9); Red Blood Count 4.46 M/mm3 (4.2-5.4); White Blood Count 8.8 K/mm3 (4.4-11.0)
[2023-02-27 13:44] LABS: Prothrombin Time (Protime)PT. 13.7 SECONDS (11.7-14.9)
[2023-02-27 13:52] LABS: Anion Gap 3 (5-15); BUN 14 mg/dL (7-18); BUN/Creat Ratio 16.1 RATIO (10-20); Calcium,Total 8.9 mg/dL (8.5-10.1); Chloride 105 mmol/L (98-107); Creatinine, Serum 0.87 mg/dL (0.55-1.02); EST Glomerular Filtration Rate 75 mL/min (>60); Est Glom Filt Rate - Afr Amer 90 mL/min (>60); Estimated Creatinine Clearance 72.71 ml/min; Glucose 90 mg/dL (74-106); Potassium 4.3 mmol/L (3.5-5.1); Sodium Level 138 mmol/L (136-145); Troponin-I HS (w/2H Reflex) 4 pg/mL (3.0-54.0)
[2023-02-27 14:36] VITALS: O2SAT 99
[2023-02-27 15:29] LABS: Reflex Troponin-HS? (from REC) Y
--- NOTE | 2023-02-27 15:51 | CT_ITS ---
EXAM: CT ANGIOGRAPHY CHEST WITHOUT AND WITH INTRAVENOUS CONTRAST CLINICAL INDICATION: Chest pain with deep breathing TECHNIQUE: Helically acquired angiography images were obtained of the chest without and with intravenous contrast. This CT exam was performed using one or more of the following dose reduction techniques: automated exposure control, adjustment of the mA and/or kV according to patient size, and/or use of iterative reconstruction technique. MIP reconstructed images were created and reviewed. CONTRAST: IV 100mL Isovue-370 COMPARISON: CTA Chest dated 06/18/2014 FINDINGS: PULMONARY ARTERIES: Normal. Normal in caliber. No evidence of pulmonary embolism. AORTA: Normal. Normal in caliber. No evidence of dissection. GREAT VESSELS OF AORTIC ARCH: Normal. Normal in caliber. No evidence of dissection. LUNGS AND PLEURAL SPACES: 2 cm right lower lobe pulmonary nodule noted as well as a 17 mm right middle lobe, 16mm lingular and 6 mm left lower lobe pulmonary nodules. No pleural effusion or thickening. No pneumothorax. HEART: Normal. Heart size is normal. No pericardial effusion. No significant coronary artery calcifications. MEDIASTINUM: Normal. No mediastinal or hilar adenopathy. Esophagus is unremarkable. No hiatal hernia. BONES/JOINTS: Normal. No suspicious lytic or blastic abnormality. GALLBLADDER AND BILE DUCTS: Endobiliary stent is partially visualized associated with pneumobilia. CT/CTA Chest W/WO Contrast IMPRESSION: 1. No evidence of acute pulmonary embolism. 2. Bilateral pulmonary nodules consistent with metastatic lung disease. Electronically Signed: Marc Nino MD at 16:22 EDT ,
[2023-02-27 16:00] VITALS: BP 135/77; PULSE 73; RESP 21; O2SAT 98
[2023-02-27 16:18] LABS: Troponin-I HS 4 pg/mL (3.0-54.0)
--- NOTE | 2023-02-27 16:39 | EX.ED.DYSGE1 ---
HPI History of Present Illness Chief Complaint: Chest Pain Narrative Narrative: Patient is a 48-year-old female who is presenting to the ER with chief complaint of right-sided chest pain and shortness of breath. Patient has a history of DVT and PE, patient was on Eliquis in the past. DVT and PE were more related to cancer most likely. 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 She currently has bilateral lung nodules and she did have nodules in her pancreas as well. Patient is currently on no blood thinners. Patient had a procedure yesterday, ERCP at the [facility]. Patient is uncertain if the pain or shortness of breath is related to him the procedure from yesterday or not. No recent traveling. Non-smoker, no acute complaints. Patient has a history of carcinoid tumor, patient's also had a liver transplant. No trauma, no heavy lifting, twisting or turning, no other acute complaints at this time. [facility] Medical History (Updated 02/27/23 @ 16:[address] Rajinder Simpson, DO) Carcinoid tumor Diarrhea History of migraine Pulmonary emboli Stenosis of common bile duct Home Medications tacrolimus 1 mg capsule, immediate-release 3 mg PO BID anti rejection 10/28/13 [History Last Taken 08/07/18 06:30] metoprolol tartrate 25 mg tablet 25 mg PO BID PRN Blood Pressure Elevation 08/07/18 [History Last Taken 08/07/18 06:30] cefadroxil 1 gram tablet 1 g PO BID #16 tabs 08/09/18 [Rx Last Taken Unknown] metoclopramide HCl 10 mg tablet 10 mg PO Q6H PRN nausea and vomiting #20 tabs 08/08/22 [Rx Last Taken Unknown] amoxicillin 875 mg-potassium clavulanate 125 mg tablet 1 tab PO BID 10 days #20 tabs 01/28/23 [Rx Last Taken Unknown] Allergy/AdvReac Type Severity Reaction Status Date / Time morphine Allergy red line Verified 02/27/23 13:04 up her arm vancomycin Allergy red man Verified 02/27/23 13:04 syndrome Surgical History (Updated 01/27/23 @ 23:57 by Berta Klein) History of liver transplant History of mastectomy Social History Smoking Status: Never smoker ROS ROS ED ROS Narrative REVIEW OF SYSTEMS: Unless otherwise stated in this report the patient's positive and negative responses for review of systems for constitutional, eyes, ENT, cardiovascular, respiratory, gastrointestinal, neurological, , musculoskeletal, and integument systems and related systems to the presenting problem are either stated in the history of present illness or were not pertinent or were negative for the symptoms and/or complaints related to the presenting medical problem. EXAM Physical Exam Narrative Exam Narrative: Vital signs reviewed and patient is not hypoxic. General: The patient appears well and in no apparent distress. Patient is resting comfortably on cart. Not toxic, lethargic, or listless. Skin: Warm, dry, no pallor noted. There is no rash noted. Head: Normocephalic, atraumatic Eye: Normal conjunctiva, no drainage, EOMI. PERRL. Ears, Nose, Mouth, and Throat: oral mucosa is moist. Nares patent. Mouth without vesicles. Cardiovascular: Regular Rate and Rhythm, no murmurs, gallops, or rubs. no reproducible tenderness to palpation to the bilateral anterior, lateral, posterior chest wall. No rash. Respiratory: Patient is in no distress, no accessory muscle use, lungs are clear to auscultation, no wheezing, rales or rhonchi. No splinting. Back: non-tender, no CVA tenderness bilaterally to percussion. NO CTLS midline or paraspinal tenderness to palpation. GI: Soft, no tenderness to palpation, no masses appreciated. No rebound, guarding, or rigidity noted. Musculoskeletal: The patient has full range of motion of all extremities and joints with no difficulty. Patient has no motor, no sensory deficits. Neurological: A&O x4, normal speech, no focal neurological deficits. Psychiatric: Cooperative Const Vital Signs: 02/27/23 13:02 02/27/23 14:36 Temperature 97.8 F Temperature Source Temporal Pulse Rate 75 Respiratory Rate 18 Blood Pressure 150/95 H Blood Pressure Mean 113 Pulse Ox 100 99 Oxygen Delivery Method Room Air Room Air MDM MDM MDM Narrative Medical decision making narrative: Patient's EKG, chest x-ray and lab work showed no acute findings. After discussing patient's history of cancer, history of blood clots, pain with deep inspiration and patient stating to me after I was getting ready to dispo the patient that this chest pain and shortness of breath feels exactly how it did in the past when I have blood clots a CTA of the chest was added. Patient has no PE, she does have bilateral pulmonary nodules that she is aware of. Patient will continue with her oncology team and treatments. No other acute findings at this time. Patient did not want any type of aspirin, Tylenol or anything for pain in the ER today. Patient is relieved there is no pulmonary emboli. No questions at discharge. Lab Data Attestation: I reviewed the patient's lab results. Labs: Laboratory Results - last 24 hr 02/27/23 02/27/23 13:25 15:35 WBC 8.8 RBC 4.46 Hgb 13.3 Hct 41.5 MCV 93.0 MCH 29.8 MCHC 32.0 RDW Std Deviation 44.9 H RDW Coeff of Josy 13.2 Plt Count 254 MPV 10.1 Immature Gran % (Auto) 0.300 Neut % (Auto) 69.2 Lymph % (Auto) 24.1 [place] % (Auto) 4.0 Eos % (Auto) 2.1 Baso % (Auto) 0.3 Absolute Neuts (auto) 6.1 Absolute Lymphs (auto) 2.12 Nucleated RBC % 0 PT 13.7 INR 1.0 Sodium 138 Potassium 4.3 Chloride 105 Carbon Dioxide 30.0 Anion Gap 3 L BUN 14 Creatinine 0.87 Estim Creat Clear Calc 72.71 Est GFR (MDRD) Af Amer 90 Est GFR (MDRD) Non-Af 75 BUN/Creatinine Ratio 16.1 Glucose 90 Calcium 8.9 Troponin I High Sens 4 4 Radiography Chest X-Ray - ED: Read by ED Physician (Chest x-ray shows no acute cardiopulmonary disease, no infiltrate, no effusion. Pulmonary nodules noted.) Diagnostic Testing: Clinical Impression(s) from Imaging Studies Chest CTA 02/27/23 15:51 IMPRESSION: 1. No evidence of acute pulmonary embolism. 2. Bilateral pulmonary nodules consistent with metastatic lung disease. Electronically Signed: Marc Nino MD at 16:22 EDT , EKG Initial EKG: Attestation: I personally reviewed and interpreted this EKG as follows: Comments: EKG interpretation. Normal sinus rhythm at 67 beats a minute. Left axis deviation. No acute ST elevation, no acute ectopy. QTc of 429 Discharge Plan Triage Chief Complaint: Chest Pain ED Provider: Rajinder Simpson Dx/Rx/DC Orders Clinical Impression: Dyspnea, Chest pain Instructions: ED Chest Pain, Uncertain Cause, ED Dyspnea Prescriptions: No Action tacrolimus 1 MG capsule 3 mg PO BID Patient Comments: Antirejection medication metoprolol tartrate 25 MG tablet 25 mg PO BID PRN (Reason: Blood Pressure Elevation) Rx Instructions: Take twice daily for BP> 160/100 cefadroxil 1 GM tablet 1 g PO BID Qty: 16 0RF metoclopramide HCl [metoclopramide HCl] 10 mg tablet 10 mg PO Q6H PRN (Reason: nausea and vomiting) Qty: 20 0RF amoxicillin-pot clavulanate 875-125 mg tablet 1 tab PO BID 10 Days Qty: 20 0RF Primary Care Provider: Zachary Tijerina Referrals: Zachary Tijerina MD [Primary Care Provider] - Activity Restrictions/Additional Instructions: Continue to follow-up with your physician and your specialist physicians for Disposition Disposition: Home, Self Care
== END 2023-02-27 16:44 | disposition home or self-care (01) ==
PROVIDERS: Emergency Provider Emergency Medicine; PCP Internal Medicine; Visit Provider Emergency Medicine
DX: R07.9 Chest pain, unspecified (principal); R91.8 Other nonspecific abnormal finding of lung field; R06.00 Dyspnea, unspecified; Z86.718 Personal history of other venous thrombosis and embolism; Z90.13 Acquired absence of bilateral breasts and nipples
CPT/HCPCS: 71045; 71275; 80048; 84484; 85025; 85610; 93005; 99284; Q9967; A4216

== ENCOUNTER 2023-07-21 12:55 | Emergency (ER) | payer MEDICAID, SELFPAY ==
[2023-07-21 12:55] VITALS: BP 167/109; PULSE 81; RESP 16; TEMP 36.2; O2SAT 98; BMI 28.6
--- NOTE | 2023-07-21 13:04 | EX.ED.DYSGE1 ---
HPI <BEN Rondon - Last Filed: 07/21/23 15:28> History of Present Illness Chief Complaint: Abd Pain Narrative Narrative: Patient is a 48-year-old female with history of carcinoma, liver transplant who sees oncology at [facility], and receives shots in her gluteal muscles once a month for cancer presenting to the emergency department with 1.5 days of epigastric pain. Patient states that she ate an Egg McMuffin and coffee. Yesterday morning, 2 hours after eating, she developed significant pain to her epigastric area that she describes as deep, gnawing and then intermittently sharp. Patient states that she has had nausea on and off. Patient states last evening, she had difficulty getting comfortable, ibuprofen was not helping, today, the pain was getting worse and so she is here for evaluation. She is having normal bowel movements. She denies any acid reflux-like symptoms, denies any chest pain or shortness of breath. Secondary to her history she is concerned. [facility] <BEN Rondon - Last Filed: 07/21/23 15:28> [facility] Medical History (Updated 07/21/23 @ 15:27 by BEN Rondon) Carcinoid tumor Diarrhea History of migraine Pulmonary emboli Stenosis of common bile duct Home Medications tacrolimus 1 mg capsule, immediate-release 3 mg PO BID anti rejection 10/28/13 [History Last Taken 08/07/18 06:30] metoprolol tartrate 25 mg tablet 25 mg PO BID PRN Blood Pressure Elevation 08/07/18 [History Last Taken 08/07/18 06:30] cefadroxil 1 gram tablet 1 g PO BID #16 tabs 08/09/18 [Rx Last Taken Unknown] metoclopramide HCl 10 mg tablet 10 mg PO Q6H PRN nausea and vomiting #20 tabs 08/08/22 [Rx Last Taken Unknown] amoxicillin 875 mg-potassium clavulanate 125 mg tablet 1 tab PO BID 10 days #20 tabs 01/28/23 [Rx Last Taken Unknown] omeprazole 40 mg capsule,delayed release 40 mg PO DAILY #30 caps 07/21/23 [Rx Last Taken Unknown] Allergy/AdvReac Type Severity Reaction Status Date / Time morphine Allergy red line Verified 07/21/23 12:55 up her arm vancomycin Allergy red man Verified 07/21/23 12:55 syndrome Surgical History History of liver transplant History of mastectomy Social History Smoking Status: Never smoker ROS <Dylon ArayaULCILAC - Last Filed: 07/21/23 15:28> ROS ED ROS Narrative Constitutional: Negative for fever, chills, weight loss, weakness Eyes: Negative for vision loss, vision change, double vision ENT: Negative for any sore throat, ear pain, congestion Cardiovascular: Negative for any chest pain, tightness, palpitations Respiratory: Negative for any cough, sputum production, hemoptysis, dyspnea, dyspnea on exertion, orthopnea Gastrointestinal: Negative for any vomiting, diarrhea, constipation, blood in stool, blood in vomit. Positive for abdominal pain, epigastric pain, nausea : Negative for any urinary frequency, dysuria, retention, blood in urine Muscle skeletal: Negative for any myalgias, arthralgias, neck pain, back pain Neurological: Negative for any headache, syncope, numbness or tingling, dizziness Skin: Negative for any rashes, lumps, itching, abrasions, lacerations Psychiatric: Negative for any depression, anxiety, stress, suicidal ideation, homicidal ideation Hematologic: Negative for any easy bruising, excessive bruising, easy bleeding Allergies: Negative for any eczema, hives, rash EXAM <Dylon AlexBEN smith - Last Filed: 07/21/23 15:28> Physical Exam Narrative Exam Narrative: Vital signs reviewed. HEET: Head normocephalic atraumatic, TMs clear bilaterally. Posterior pharynx is clear, moist mucous membranes. Nares clear bilaterally. Neck: Supple with no lymphadenopathy or tenderness. No signs of meningismus. Cardiac: Regular rate and rhythm no murmurs gallops or rubs, equal peripheral pulses bilaterally. Respiratory: Lungs clear to auscultation bilaterally. No chest tenderness. Abdomen: Soft, nontender, nondistended. No abdominal bruit or pulsatile masses. No hepatosplenomegaly. Negative Dooley sign. Pressing on the abdomen does not cause discomfort. Active bowel sounds in all quadrants. No peritoneal signs. Belly is soft. Extremities: No peripheral edema, no signs of gross trauma or deformity. Active full range of motion of all extremities. Neuro: Cranial nerves II through XII intact, no focal neurological deficits. Skin: Clean dry and intact with no rash, purpura, petechiae, vesicles or pustules. Backs/flank: No CVA tenderness, no midline spinal tenderness, no deformity. Psych: Normal mood and affect. No SI, HI or acute psychosis. Const Vital Signs: 07/21/23 12:55 Temperature 97.2 F L Temperature Source Temporal Pulse Rate 81 Respiratory Rate 16 Blood Pressure 167/109 H Blood Pressure Mean 128 Pulse Ox 98 Oxygen Delivery Method Room Air <José Miguel See MD - Last Filed: 07/21/23 19:09> Physical Exam Const Vital Signs: 07/21/23 12:55 Temperature 97.2 F L Temperature Source Temporal Pulse Rate 81 Respiratory Rate 16 Blood Pressure 167/109 H Blood Pressure Mean 128 Pulse Ox 98 Oxygen Delivery Method Room Air MDM <BEN Rondon - Last Filed: 07/21/23 15:28> [facility] Lab Data Labs: Laboratory Results - last 24 hr 07/21/23 07/21/23 13:35 14:07 WBC 10.6 RBC 4.67 Hgb 13.7 Hct 41.2 MCV 88.2 MCH 29.3 MCHC 33.3 RDW Std Deviation 44.6 H RDW Coeff of Josy 14.0 Plt Count 235 MPV 9.6 Immature Gran % (Auto) 0.400 Neut % (Auto) 76.9 H Lymph % (Auto) 17.4 L [place] % (Auto) 3.2 Eos % (Auto) 1.8 Baso % (Auto) 0.3 Absolute Neuts (auto) 8.2 H Absolute Lymphs (auto) 1.84 Nucleated RBC % 0 Sodium 136 Potassium 4.0 Chloride 105 Carbon Dioxide 29.0 Anion Gap 2 L BUN 14 Creatinine 0.79 Estim Creat Clear Calc 80.07 Est GFR (MDRD) Af Amer 101 Est GFR (MDRD) Non-Af 84 BUN/Creatinine Ratio 17.8 Glucose 114 H Calcium 8.5 Total Bilirubin 0.70 AST 18 ALT 17 Alkaline Phosphatase 100 Total Protein 8.2 Albumin 3.5 Globulin 4.7 H Albumin/Globulin Ratio 0.7 L Lipase 28 Urine Color Cancelled Urine Clarity Cancelled Urine pH Cancelled Ur Specific [place] Cancelled U Specif Grav (Refrac) Cancelled Urine Protein Cancelled Urine Glucose (UA) Cancelled Urine Ketones Cancelled Urine Occult Blood Cancelled Urine Nitrite Cancelled Urine Bilirubin Cancelled Urine Urobilinogen Cancelled Ur Leukocyte Esterase Cancelled Urine RBC Cancelled Urine WBC Cancelled Ur Squamous Epith Cells Cancelled Ur Transition Epith Cell Cancelled Ur Renal Epithelial Cell Cancelled Calcium Oxalate Crystal Cancelled Uric Acid Crystals Cancelled Triple Phos Crystals Cancelled Other Crystals Cancelled Amorphous Sediment Cancelled Urine Bacteria Cancelled Hyaline Casts Cancelled Fine Granular Casts Cancelled Coarse Granular Casts Cancelled Waxy Casts Cancelled RBC Casts Cancelled WBC Casts Cancelled Urine Mucus Cancelled Urine Trichomonas Cancelled Urine Yeast Cancelled Radiography Diagnostic Testing: Clinical Impression(s) from Imaging Studies Abdomen/Pelvis CT 07/21/23 13:19 IMPRESSION: 1. Slowly enlarging nodule in the lingula. Malignancy is difficult to exclude. 2. Hypodense lesion in the body of the pancreas for which further investigation with MRI with contrast is recommended. 3. Common bile duct stent in place. Prominence of the right lobe biliary ducts. 4. Nonspecific fluid-filled small bowel loops without evidence of bowel obstruction could be due to ileus or enteritis. 5. Status post partial colectomy. Electronically Signed: Paulo Wilson MD at 15:01 EST , Treatment and Re-Evaluation :: Patient appears generally well, patient appears nontoxic, vital signs are stable. Presenting to the emergency department with complaints of epigastric pain that started yesterday. Differential diagnosis includes worsening carcinoma, choledocholithiasis, mass, GERD. Patient will receive basic laboratory values including a liver panel. Patient will receive a CT scan of the abdomen pelvis with IV contrast. Patient be given IV fluids, Zofran, Dilaudid, GI cocktail to see if this decreases any of her pain. Patient's laboratory values showed normal CBC, patient's chemistries were unremarkable, liver panel was unremarkable patient lipase was negative. Patient CT scan showed slowly enlarging nodule in the lingula, malignancy is difficult to exclude. Patient does have history of this. Hypodense lesion in the body the pancreas for which further investigation with MRI with contrast is recommended. Common bile duct stent is in place. Nonspecific fluid-filled small bowel loops with evidence of bowel obstruction. Status post partial colectomy. Patient received GI cocktail as well as IV Zofran, IV Dilaudid. On reevaluation, patient was feeling much better. Patient replaced on a short course of omeprazole for 1 month, she is instructed to follow-up outpatient with her oncologist in [facility]. All questions were answered, patient extremely well, patient passed a p.o. challenge. Patient stable for discharge <José Miguel See MD - Last Filed: 07/21/23 19:09> [facility] Narrative Medical decision making narrative: Dr. See: I have personally performed a face to face assessment of the patient and have reviewed the SHARIF Note. I performed a substantive portion of the visit including all aspects of the following. My alonzo findings include: History is epigastric abdominal pain with history of carcinoid tumors with metastasis to liver. Exam is afebrile. Vital signs noted. Regular rate and rhythm. Lungs clear to auscultation bilaterally. Abdomen soft with mild tenderness to palpation in epigastrium. Medical Decision Making: Check labs, check CT, analgesia. I reviewed her laboratory work and she has normal white count of 10.6, CMP essentially unremarkable, LFTs within normal limits. CT with no acute process. Discharge. Follow-up as outpatient. No feel she requires admission at this time. Patient is in stable condition. Other additions or changes: [None] History & Record Review Discussion w/independent historian: Patient Additional record(s) reviewed:: Prior ED visit Lab Data Attestation: I reviewed the patient's lab results. Labs: Laboratory Results - last 24 hr 07/21/23 07/21/23 13:35 14:07 WBC 10.6 RBC 4.67 Hgb 13.7 Hct 41.2 MCV 88.2 MCH 29.3 MCHC 33.3 RDW Std Deviation 44.6 H RDW Coeff of Josy 14.0 Plt Count 235 MPV 9.6 Immature Gran % (Auto) 0.400 Neut % (Auto) 76.9 H Lymph % (Auto) 17.4 L [place] % (Auto) 3.2 Eos % (Auto) 1.8 Baso % (Auto) 0.3 Absolute Neuts (auto) 8.2 H Absolute Lymphs (auto) 1.84 Nucleated RBC % 0 Sodium 136 Potassium 4.0 Chloride 105 Carbon Dioxide 29.0 Anion Gap 2 L BUN 14 Creatinine 0.79 Estim Creat Clear Calc 80.07 Est GFR (MDRD) Af Amer 101 Est GFR (MDRD) Non-Af 84 BUN/Creatinine Ratio 17.8 Glucose 114 H Calcium 8.5 Total Bilirubin 0.70 AST 18 ALT 17 Alkaline Phosphatase 100 Total Protein 8.2 Albumin 3.5 Globulin 4.7 H Albumin/Globulin Ratio 0.7 L Lipase 28 Urine Color Cancelled Urine Clarity Cancelled Urine pH Cancelled Ur Specific [place] Cancelled U Specif Grav (Refrac) Cancelled Urine Protein Cancelled Urine Glucose (UA) Cancelled Urine Ketones Cancelled Urine Occult Blood Cancelled Urine Nitrite Cancelled Urine Bilirubin Cancelled Urine Urobilinogen Cancelled Ur Leukocyte Esterase Cancelled Urine RBC Cancelled Urine WBC Cancelled Ur Squamous Epith Cells Cancelled Ur Transition Epith Cell Cancelled Ur Renal Epithelial Cell Cancelled Calcium Oxalate Crystal Cancelled Uric Acid Crystals Cancelled Triple Phos Crystals Cancelled Other Crystals Cancelled Amorphous Sediment Cancelled Urine Bacteria Cancelled Hyaline Casts Cancelled Fine Granular Casts Cancelled Coarse Granular Casts Cancelled Waxy Casts Cancelled RBC Casts Cancelled WBC Casts Cancelled Urine Mucus Cancelled Urine Trichomonas Cancelled Urine Yeast Cancelled Radiography Diagnostic Testing: Clinical Impression(s) from Imaging Studies Abdomen/Pelvis CT 07/21/23 13:19 IMPRESSION: 1. Slowly enlarging nodule in the lingula. Malignancy is difficult to exclude. 2. Hypodense lesion in the body of the pancreas for which further investigation with MRI with contrast is recommended. 3. Common bile duct stent in place. Prominence of the right lobe biliary ducts. 4. Nonspecific fluid-filled small bowel loops without evidence of bowel obstruction could be due to ileus or enteritis. 5. Status post partial colectomy. Electronically Signed: Paulo Wilson MD at 15:01 EST , Discharge Plan Triage Chief Complaint: Abd Pain ED Midlevel Provider: Dylon Araya ED Provider: José Miguel See Dx/Rx/DC Orders Clinical Impression: Abdominal pain Instructions: Abdominal Pain, ED Abdominal Pain Unkn Cause Fem Prescriptions: New omeprazole 40 mg capsule,delayed release(DR/EC) 40 mg PO DAILY Qty: 30 1RF No Action tacrolimus 1 MG capsule 3 mg PO BID Patient Comments: Antirejection medication metoprolol tartrate 25 MG tablet 25 mg PO BID PRN (Reason: Blood Pressure Elevation) Rx Instructions: Take twice daily for BP> 160/100 cefadroxil 1 GM tablet 1 g PO BID Qty: 16 0RF metoclopramide HCl [metoclopramide HCl] 10 mg tablet 10 mg PO Q6H PRN (Reason: nausea and vomiting) Qty: 20 0RF amoxicillin-pot clavulanate 875-125 mg tablet 1 tab PO BID 10 Days Qty: 20 0RF Primary Care Provider: Zachary Tijerina Referrals: Zachary Tijerina MD [Primary Care Provider] - Activity Restrictions/Additional Instructions: Please follow-up, return for any worsening symptoms. Try to take the omeprazole in the morning. See if it helps your symptoms. Disposition Disposition: Home, Self Care Discharge Date/Time: 07/21/23 15:51
--- NOTE | 2023-07-21 13:19 | CT_ITS ---
STUDY: CT ABDOMEN AND PELVIS WITH CONTRAST REASON FOR EXAM: Female, 48 years old. Epigastric pain. LIVER TRANSPLANT . CARCINOID CANCER OF COLON, SPREAD TO LUNG,BREAST,LIVER,PANCREAS RADIATION DOSAGE (If Supplied By Facility): CTDIvol = ( 17.70 ) mGy, DLP = ( 1013.17 ) mGycm TECHNIQUE: 100 ML ISOVUE 370 was administered. Transaxial images were obtained from the dome of the diaphragm to the symphysis pubis. Multiplanar coronal and sagittal images were reformatted. Individualized Dose Optimization Techniques Were Used For This CT. COMPARISON: Prior study dated: 08/07/2018. FINDINGS: 1.3 cm nodule in the lingula increased in size since previous exam. Partially visualized bilateral breast implants. The visualized portions of the heart are within normal limits. Mild intrahepatic biliary duct dilatation of the posterior segment of the right lobe of the liver. There is non-visualization of the gallbladder, which may be secondary to either contraction or a prior cholecystectomy. Common bile duct stent is seen. Borderline splenomegaly. 1.2 cm hypodense lesion inferior aspect of the body of the pancreas. Mild prominence of pancreatic duct. Normal bilateral adrenal glands. Thickening of the stomach likely due to underdistention. Difficult to accurately evaluate the gastric antrum and pylorus. Nonspecific fluid-filled small bowel loops without evidence of bowel obstruction. Status post hemicolectomy. There is non-visualization of the appendix. Normal abdominal aorta. No retroperitoneal adenopathy. Normal right kidney. Normal left kidney. Normal urinary bladder. IUD in the uterus There is a small umbilical hernia containing fat. Normal osseous structures. CT/Abdomen/Pelvis W IV Cont ONLY IMPRESSION: 1. Slowly enlarging nodule in the lingula. Malignancy is difficult to exclude. 2. Hypodense lesion in the body of the pancreas for which further investigation with MRI with contrast is recommended. 3. Common bile duct stent in place. Prominence of the right lobe biliary ducts. 4. Nonspecific fluid-filled small bowel loops without evidence of bowel obstruction could be due to ileus or enteritis. 5. Status post partial colectomy. Electronically Signed: Paulo Wilson MD at 15:01 EST ,
[2023-07-21] MEDS: Mag Hydrox/Al Hydrox/Simeth 30 ML UDC PO (13:34)
[2023-07-21] MEDS: Ondansetron 4 MG/2 ML Vial IV (13:34)
[2023-07-21] MEDS: HYDROmorphone 1 MG/ML Syringe 0.5 MG IV (13:35)
[2023-07-21] MEDS: 0.9% Normal Saline (1000mL) 1,000 ML 1000 ML IV (13:36)
[2023-07-21 14:01] LABS: Absolute Lymphocyte Count 1.84 X10^3/uL (0.83-4.51); Absolute Neutrophil Count 8.2 X10^3/uL (2.0-7.7); Basophil# 0.03 X10^3/uL; Basophil% 0.3 % (0-1); Eosinophil# 0.19 X10^3/uL; Eosinophils% 1.8 % (0-5); Hematocrit 41.2 % (37-47); Hemoglobin 13.7 g/dL (12.0-15.0); Lymphocyte # 1.84 X10^3/ul (0.83-4.51); Lymphocyte % 17.4 % (19-41); Mean Corp Hgb Conc 33.3 g/dL (32-36); Mean Corpuscular Hgb 29.3 pg (27.0-32.0); Mean Corpuscular Volume 88.2 fL (81-99); Mean Platelet Vol. 9.6 fl (6.2-12.0); Monocyte# 0.34 X10^3/uL; Monocyte% 3.2 % (0-10); NRBC Flagged by Analyzer 0 % (0-5); Neutrophil # 8.16 X10^3/uL (2.7-7.7); Neutrophil % 76.9 % (47-70); Platelet Count 235 K/mm3 (150-450); RBC Distribution Width SD 44.6 fl (35.1-43.9); Red Blood Count 4.67 M/mm3 (4.2-5.4); White Blood Count 10.6 K/mm3 (4.4-11.0)
[2023-07-21 14:04] LABS: ALB/GLOB Ratio 0.7 RATIO (0.9-2.4); AST(SGOT) 18 U/L (15-37); Alanine Aminotransfer ALT/SGPT 17 U/L (13-56); Albumin, Serum 3.5 g/dL (3.2-5.0); Alkaline Phosphatase 100 U/L (45-117); Anion Gap 2 (5-15); BUN 14 mg/dL (7-18); BUN/Creat Ratio 17.8 RATIO (10-20); Calcium,Total 8.5 mg/dL (8.5-10.1); Chloride 105 mmol/L (98-107); Creatinine, Serum 0.79 mg/dL (0.55-1.02); EST Glomerular Filtration Rate 84 mL/min (>60); Est Glom Filt Rate - Afr Amer 101 mL/min (>60); Estimated Creatinine Clearance 80.07 ml/min; Globulin 4.7 g/dL (2.2-4.2); Glucose 114 mg/dL (74-106); Lipase 28 U/L (13-75); Protein, Total 8.2 g/dL (6.4-8.2); Sodium Level 136 mmol/L (136-145)
== END 2023-07-21 15:51 | disposition home or self-care (01) ==
PROVIDERS: Nurse Practitioner; Emergency Provider Emergency Medicine; PCP Internal Medicine; Visit Provider Emergency Medicine
DX: R10.9 Unspecified abdominal pain (principal); Z94.4 Liver transplant status; Z85.9 Personal history of malignant neoplasm, unspecified; Z90.49 Acquired absence of other specified parts of digestive tract
CPT/HCPCS: 74177; 80053; 83690; 85025; 96361; 96374; 96375; 99283; J7030; Q9967; A4216; J2405

== ENCOUNTER 2023-12-27 22:35 | Emergency (ER) | payer MEDICARE, MEDICAID, SELFPAY ==
[2023-12-27 22:35] VITALS: BP 156/92; PULSE 87; RESP 16; TEMP 36.6; O2SAT 99; BMI 28.3
--- NOTE | 2023-12-27 23:36 | EX.ED.DYSGE1 ---
HPI History of Present Illness Chief Complaint: Abd Pain Informant: patient Onset/Context/Timing Onset: Yesterday Context: Gradual Onset Narrative Narrative: Patient presents secondary to right upper quadrant pain, itching, decreased appetite. She has a history of carcinoid cancer and has a tumor pressing on her common bile duct. Every 6 months she undergoes an ERCP to have the stent exchanged. She is due to have this done. She called her oncologist on-call today at [facility] because she had developed itching with some right upper quadrant pain. They had suggested taking Benadryl for the itching and to come to the emergency room to have her stent evaluated. She states that she did lay down and take a nap and had a temperature of 100.0 when she awoke. [facility] Medical History Carcinoid tumor Diarrhea History of migraine Pulmonary emboli Stenosis of common bile duct Home Medications tacrolimus 1 mg capsule, immediate-release 2.5 mg PO BID anti rejection 10/28/13 [History Last Taken 08/07/18 06:30] metoprolol tartrate 25 mg tablet 25 mg PO BID PRN Blood Pressure Elevation 08/07/18 [History Last Taken 08/07/18 06:30] lisinopril 20 mg tablet 20 mg PO DAILY 12/27/23 [History Last Taken Unknown] venlafaxine 75 mg tablet 75 mg PO DAILY anxiety 12/27/23 [History Last Taken Unknown] Allergy/AdvReac Type Severity Reaction Status Date / Time morphine Allergy red line Verified 12/27/23 22:38 up her arm vancomycin Allergy red man Verified 12/27/23 22:38 syndrome Surgical History History of liver transplant History of mastectomy Social History Smoking Status: Never smoker ROS ROS ED Constitutional Constitutional ED: Denies chills or fever(s) Eyes Eyes: Denies change in vision or discharge from eye(s) ENT ENT ED: Denies discharge from eye(s), rhinorrhea or sore throat Cardiovascular Cardiovascular: Denies chest pain or palpitations Respiratory/Chest Respiratory/Chest: Denies cough or dyspnea Gastrointestinal Gastrointestinal: Reports abdominal pain; Denies diarrhea, nausea or vomiting Genitourinary Genitourinary ED: Denies dysuria Musculoskeletal Musculoskeletal: Denies back pain or extremity pain Integumentary Reports other Details: Pruritus ; Denies Abrasions or rash Neurologic Neurologic: Denies headache(s) or weakness Psychiatric Psychiatric: Denies anxiety or depression Allergic/Immunologic Allergic/Immunologic ED: Denies lip swelling or urticaria EXAM Physical Exam Const Vital Signs: 12/27/23 22:35 12/28/23 00:35 12/28/23 01:15 Temperature 97.8 F 98.5 F Temperature Source Temporal Temporal Pulse Rate 87 82 79 Respiratory Rate 16 18 20 H Blood Pressure 156/92 H 152/88 H 146/83 H Blood Pressure Mean 113 109 104 Pulse Ox 99 98 97 Oxygen Delivery Method Room Air Room Air Room Air 12/28/23 03:00 12/28/23 05:00 Temperature Temperature Source Pulse Rate 80 77 Respiratory Rate 16 16 Blood Pressure 159/94 H 136/92 H Blood Pressure Mean 115 106 Pulse Ox 96 98 Oxygen Delivery Method Room Air Room Air Positive well nourished and well developed General Appearance ED: well developed HEENT Reports moist mucous membranes Eyes EOMs intact bilaterally Chest Wall inspection of chest normal and palpation of chest normal Resp normal respiratory effort and clear to auscultation bilaterally Cardio regular rate and regular rhythm GI non-tender Auscultation: hypoactive bowel sounds Palpation: soft Extremity normal to inspection Neuro oriented x3 and no sensory deficits noted Motor Exam: strength 5/5 throughout Psych mental status grossly normal Skin Skin Narrative: Erythema on abdomen and neck from scratching. MDM MDM MDM Narrative Medical decision making narrative: Patient given dose of Vistaril to try to help with itching. IV line established. Labwork obtained to evaluate for leukocytosis, anemia, and electrolyte derangement. CT scan of the abdomen pelvis with IV contrast obtained to evaluate, bile duct and stent. History & Record Review Discussion w/independent historian: Patient Additional record(s) reviewed:: Prior outpatient record, Prior ED visit and Prior labs Lab Data Attestation: I reviewed the patient's lab results. Labs: Laboratory Results - last 24 hr 12/27/23 23:44 WBC 6.7 RBC 4.59 Hgb 13.8 Hct 41.4 MCV 90.2 MCH 30.1 MCHC 33.3 RDW Std Deviation 46.4 H RDW Coeff of Josy 14.1 Plt Count 209 MPV 9.8 Immature Gran % (Auto) 0.300 Neut % (Auto) 72.9 H Lymph % (Auto) 17.3 L [place] % (Auto) 7.3 Eos % (Auto) 1.9 Baso % (Auto) 0.3 Absolute Neuts (auto) 4.9 Absolute Lymphs (auto) 1.16 Nucleated RBC % 0 Sodium 136 Potassium 4.0 Chloride 103 Carbon Dioxide 27.0 Anion Gap 6 BUN 8 Creatinine 0.92 Estim Creat Clear Calc 78.54 Est GFR (MDRD) Af Amer 84 Est GFR (MDRD) Non-Af 69 BUN/Creatinine Ratio 8.6 L Glucose 122 H Calcium 8.7 Total Bilirubin 7.40 H Direct Bilirubin 5.25 H AST 176 H ALT 195 H Alkaline Phosphatase 328 H Total Protein 8.1 Albumin 3.5 Globulin 4.6 H Lipase 29 Radiography Diagnostic Testing: Clinical Impression(s) from Imaging Studies Abdomen/Pelvis CT 12/28/23 23:34 IMPRESSION: 1. Dilation of the common bile duct up to 1.2 cm with a common duct stent in place. 2. 1.6 cm nodule along the right heart border in the right middle lobe, 1.9 cm nodule in the right lower lobe, and 1.4 cm nodule in the lingula. 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 Electronically Signed: Andi Ellison MD at 1:23 EDT Reading Location ID and State: [facility] Tel , Service support , Treatment and Re-Evaluation :: CBC was normal white count 6.7 with a hemoglobin of 13.8. 72% neutrophils noted. Chemistry studies are unremarkable. LFTs revealed total bilirubin of 7.40, direct bilirubin 5.25, AST of 176, ALT of 195, and an alk phos of 328. Lipase is normal at 29. CT scan of the abdomen and pelvis with IV contrast reveals a dilated common bile duct up to 1.2 cm with a common duct stent in place. Multiple nodules are noted in the chest consistent with history of metastatic spread. Patient did receive a dose of Solu-Medrol as well as Benadryl for continued itching and development of some hives. Test results discussed with the transfer line at [facility]. Patient has been accepted by the hospitalist service to the oncology floor for further evaluation. We are awaiting bed assignment at this time. Discharge Plan Triage Chief Complaint: Abd Pain ED Provider: Katie Aragon Dx/Rx/DC Orders Clinical Impression: Biliary stent obstruction Prescriptions: No Action tacrolimus 1 MG capsule 2.5 mg PO BID Patient Comments: Antirejection medication metoprolol tartrate 25 MG tablet 25 mg PO BID PRN (Reason: Blood Pressure Elevation) Rx Instructions: Take twice daily for BP> 160/100 venlafaxine 75 mg tablet 75 mg PO DAILY lisinopril 20 mg tablet 20 mg PO DAILY Primary Care Provider: Zachary Tijerina Referrals: Zachary Tijerina MD [Primary Care Provider] - Disposition Disposition: Acute Care Hospital Discharge Location: [facility]
[2023-12-27] MEDS: hydrOXYzine PAM 25 MG Capsule 50 MG PO (23:46)
[2023-12-27] MEDS: 0.9% Normal Saline (1000mL) 1,000 ML 150 ML IV (23:47)
[2023-12-27 23:56] LABS: Absolute Lymphocyte Count 1.16 X10^3/uL (0.83-4.51); Absolute Neutrophil Count 4.9 X10^3/uL (2.0-7.7); Basophil# 0.02 X10^3/uL; Basophil% 0.3 % (0-1); Eosinophil# 0.13 X10^3/uL; Eosinophils% 1.9 % (0-5); Hematocrit 41.4 % (37-47); Hemoglobin 13.8 g/dL (12.0-15.0); Lymphocyte # 1.16 X10^3/ul (0.83-4.51); Lymphocyte % 17.3 % (19-41); Mean Corp Hgb Conc 33.3 g/dL (32-36); Mean Corpuscular Hgb 30.1 pg (27.0-32.0); Mean Corpuscular Volume 90.2 fL (81-99); Mean Platelet Vol. 9.8 fl (6.2-12.0); Monocyte# 0.49 X10^3/uL; Monocyte% 7.3 % (0-10); NRBC Flagged by Analyzer 0 % (0-5); Neutrophil % 72.9 % (47-70); Platelet Count 209 K/mm3 (150-450); RBC Distribution Width CV 14.1 % (11.6-14.6); RBC Distribution Width SD 46.4 fl (35.1-43.9); Red Blood Count 4.59 M/mm3 (4.2-5.4); White Blood Count 6.7 K/mm3 (4.4-11.0)
[2023-12-28] VITALS (7 sets, daily range): BP systolic 127–159; BP diastolic 73–94; PULSE 72–96; RESP 16–20; TEMP 36.6–37; O2SAT 96–98
[2023-12-28 00:09] LABS: AST(SGOT) 176 U/L (15-37); Alanine Aminotransfer ALT/SGPT 195 U/L (13-56); Albumin, Serum 3.5 g/dL (3.2-5.0); Alkaline Phosphatase 328 U/L (45-117); Anion Gap 6 (5-15); BUN 8 mg/dL (7-18); BUN/Creat Ratio 8.6 RATIO (10-20); Bilirubin, Direct 5.25 mg/dL (0.00-0.30); Calcium,Total 8.7 mg/dL (8.5-10.1); Chloride 103 mmol/L (98-107); Creatinine, Serum 0.92 mg/dL (0.55-1.02); EST Glomerular Filtration Rate 69 mL/min (>60); Est Glom Filt Rate - Afr Amer 84 mL/min (>60); Estimated Creatinine Clearance 78.54 ml/min; Globulin 4.6 g/dL (2.2-4.2); Glucose 122 mg/dL (74-106); Lipase 29 U/L (13-75); Protein, Total 8.1 g/dL (6.4-8.2); Sodium Level 136 mmol/L (136-145)
[2023-12-28] MEDS: DiphenhydrAMINE 50 MG/ML Syringe 25 MG IV (01:20)
[2023-12-28] MEDS: MethylPREDNISolone 125 MG/2 ML Vial IV (01:20)
--- NOTE | 2023-12-28 06:16 | ED.RN ---
Report given to Ирина ALVARADO, questions/concerns answered
--- NOTE | 2023-12-28 23:34 | CT_ITS ---
EXAM: CT ABDOMEN AND PELVIS WITH INTRAVENOUS CONTRAST CLINICAL INDICATION: Carcinoid CA, CBD stent TECHNIQUE: Helically acquired images were obtained of the abdomen and pelvis with intravenous contrast. This CT exam was performed using one or more of the following dose reduction techniques: automated exposure control, adjustment of the mA and/or kV according to patient size, and/or use of iterative reconstruction technique. CONTRAST: IV 100mL Isovue-370 RADIATION DOSE: CTDIvol = 16.43 mGy, DLP = 1110.89 mGy-cm COMPARISON: No relevant prior studies available. FINDINGS: LOWER THORAX: 1.6 cm nodule along the right heart border in the right middle lobe, 1.9 cm nodule in the right lower lobe, and 1.4 cm nodule in the lingula. No significant pericardial effusion. ABDOMEN: LIVER: Evidence of prior liver transplant. GALLBLADDER AND BILE DUCTS: Dilation of the common bile duct up to 1.2 cm with a common duct stent in place. Cholecystectomy. PANCREAS: Unremarkable. No focal cystic or solid mass. SPLEEN: Unremarkable. Normal size without focal cystic or solid mass. ADRENALS: Unremarkable. No nodules. KIDNEYS AND URETERS: Unremarkable. Normal renal size and position. No hydronephrosis. STOMACH AND BOWEL: Unremarkable. No stomach or bowel distention. No focal inflammatory change. PELVIS: APPENDIX: Probable appendectomy changes. BLADDER: Unremarkable. REPRODUCTIVE: IUD in the uterus. ABDOMEN and PELVIS: INTRAPERITONEAL SPACE: Unremarkable. No ascites or other fluid collection. No free air. BONES/JOINTS: Unremarkable. No suspicious lytic or blastic abnormality. SOFT TISSUES: Bilateral mastectomies with breast implants. No discrete abdominal or pelvic wall hernia. VASCULATURE: Unremarkable. Abdominal aorta is non-dilated. LYMPH NODES: Unremarkable. No enlarged lymph nodes. CT/Abdomen/Pelvis W IV Cont ONLY IMPRESSION: 1. Dilation of the common bile duct up to 1.2 cm with a common duct stent in place. 2. 1.6 cm nodule along the right heart border in the right middle lobe, 1.9 cm nodule in the right lower lobe, and 1.4 cm nodule in the lingula. 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 Electronically Signed: Andi Ellison MD at 1:23 EDT ,
== END 2023-12-28 10:29 | disposition short-term general hospital (02) ==
PROVIDERS: Emergency Provider Emergency Medicine; PCP Internal Medicine; Visit Provider Emergency Medicine
DX: T85.898A Other specified complication of other internal prosthetic devices, implants and grafts, initial encounter (principal); C7A.098 Malignant carcinoid tumors of other sites; Y73.8 Miscellaneous gastroenterology and urology devices associated with adverse incidents, not elsewhere classified
CPT/HCPCS: 74177; 80048; 80076; 83690; 85025; 96361; 96374; 96375; 99284; J7030; Q9967; A4216

== ENCOUNTER 2024-01-03 20:42 | Emergency (ER) | payer MEDICARE, MEDICAID, SELFPAY ==
[2024-01-03 20:43] VITALS: BP 160/98; PULSE 100; RESP 18; TEMP 36.6; O2SAT 99
--- NOTE | 2024-01-03 21:22 | CT_ITS ---
STUDY: CT ABDOMEN AND PELVIS WITH CONTRAST REASON FOR EXAM: Female, 48 years old. epigastric pain, recent biliary stent replacement RADIATION DOSAGE (If Supplied By Facility): CTDIvol = ( 14.92 ) mGy, DLP = ( 878.87 ) mGycm TECHNIQUE: Transaxial images were obtained from the dome of the diaphragm to the symphysis pubis without oral contrast. IV 100mL Isovue-370 was administered. Sagittal and coronal images were reconstructed. Individualized dose optimization techniques were used for this CT. COMPARISON: 12/28/2023 FINDINGS: No change in bibasilar pulmonary nodules. The visualized portions of the heart are within normal limits. Elevated right hemidiaphragm. Normal liver. There is non-visualization of the gallbladder, which may be secondary to either contraction or a prior cholecystectomy. Metallic stent within the distal common bile duct. Interval placement of plastic stent through the metal stent extending from the common hepatic duct into the third portion the duodenum with resolution of biliary ductal dilatation.. Normal spleen. Normal pancreas. Normal bilateral adrenal glands. Normal right kidney. Normal left kidney. Normal visualized stomach. Normal small intestine. Normal colon. There is non-visualization of the appendix. Normal abdominal aorta. Normal inferior vena cava. Normal retroperitoneum. Normal urinary bladder. Intrauterine device within the uterus. Fallopian tube implants. 3 cm hernia in the midline in the anterior abdominal wall superior to the umbilicus containing fat. Mild dextroscoliosis lumbar spine. CT/Abdomen/Pelvis W IV Cont ONLY IMPRESSION: 1. Interval placement of biliary stent with resolution of biliary ductal dilatation. 2. No change in bibasilar pulmonary nodules. Electronically Signed: Mendoza Balderrama MD at 22:29 EDT ,
--- NOTE | 2024-01-03 21:23 | EDS_ITS ---
HPI HPI - GI History of Present Illness Chief Complaint: Abd Pain Informant: patient Abdominal Pain/Flank Pain Onset: Today Context: Gradual Onset Timing: Continuous Quality: Aching Location: Epigastric Current Severity: Severe Maximum Severity: Severe Worsened by: Nothing Relieved by: Nothing Nausea/Vomiting/Emesis GI Symptom: Positive for Nausea and Vomiting Onset: Today Quality: Positive for Nonbilious; Negative for Blood streaks Severity: Severe Diarrhea/Melena/Hematochezia GI Symptom: Negative for Diarrhea, Melena or Hematochezia Associated Symptoms Associated Symptoms: Negative for Dysuria, Frequency or Hematuria Narrative Narrative: Patient has carcinoid cancer in multiple areas of her body, but for this reason remotely had liver resection and transplant, and she gets regular common bile duct stents due to a carcinoid tumor pushing on the biliary area. Earlier this year she had a metal stent that was blocked and 3 days ago she was at [facility] [place] having that switched out to a plastic stent. She was doing well until today when she started having severe epigastric pain, vomiting and she is very uncomfortable. adds that she is lactose intolerant cannot do dairy but she did some recently, but the patient states she has never had discomfort this bad with dairy. [facility] Medical History (Updated 01/04/24 @ 00:[address] Nirmal Amaya MD) Stenosis of common bile duct Carcinoid tumor Diarrhea History of migraine Pulmonary emboli Home Medications ?Medication ?Instructions ?Recorded ?Last Taken ?Type tacrolimus 1 mg capsule, 2.5 mg PO BID anti rejection 10/28/13 08/07/18 06:30 History immediate-release metoprolol tartrate 25 mg tablet 25 mg PO BID PRN Blood Pressure 08/07/18 08/07/18 06:30 History Elevation lisinopril 20 mg tablet 20 mg PO DAILY 12/27/23 Unknown History venlafaxine 75 mg tablet 75 mg PO DAILY anxiety 12/27/23 Unknown History ondansetron 8 mg disintegrating 8 mg PO Q8H PRN nausea and 01/04/24 Unknown Rx tablet vomiting #20 tabs oxycodone-acetaminophen 5 mg-325 1 tab PO Q4H PRN Pain 4 days #20 01/04/24 Unknown Rx mg tablet TABLETS Allergy/AdvReac Type Severity Reaction Status Date / Time morphine Allergy red line Verified 01/03/24 20:45 up her arm vancomycin Allergy red man Verified 01/03/24 20:45 syndrome Surgical History (Updated 01/03/24 @ 22:[address] Nirmal Amaya MD) History of appendectomy History of cholecystectomy History of mastectomy History of liver transplant Social History Smoking Status: Never smoker ROS ROS ED Constitutional Constitutional ED: Denies chills or fever(s) Eyes Eyes: Denies change in vision or diplopia ENT ENT ED: Denies rhinorrhea or sore throat Cardiovascular Cardiovascular: Denies chest pain or palpitations Respiratory/Chest Respiratory/Chest: Denies cough or dyspnea Gastrointestinal Gastrointestinal: Reports abdominal pain, nausea and vomiting; Denies diarrhea Genitourinary Genitourinary ED: Denies dysuria or hematuria Musculoskeletal Musculoskeletal: Denies back pain or neck pain Integumentary Denies abscess or rash Neurologic Neurologic: Denies headache(s), paresthesias or weakness Psychiatric Psychiatric: Denies depression or suicidal thoughts EXAM Physical Exam Const Vital Signs: 01/03/24 20:43 01/03/24 21:34 01/03/24 21:38 Temperature 97.8 F 98.0 F Temperature Source Temporal Oral Pulse Rate 100 102 H Respiratory Rate 18 16 Blood Pressure 160/98 H 165/102 H Blood Pressure Mean 118 123 Pulse Ox 99 100 Oxygen Delivery Method Room Air 01/03/24 22:09 01/04/24 00:00 Temperature Temperature Source Pulse Rate 71 76 Respiratory Rate 16 16 Blood Pressure 145/90 H 164/103 H Blood Pressure Mean 108 123 Pulse Ox 99 99 Oxygen Delivery Method Room Air Positive well nourished and well developed Constitutional Narrative: In mild painful distress with regards to abdominal pain General Appearance ED: well developed HEENT Reports moist mucous membranes normocephalic and atraumatic Eyes PERRL and EOMs intact bilaterally Neck full ROM and supple Resp normal respiratory effort and clear to auscultation bilaterally Cardio regular rate, regular rhythm and no murmurs GI non-distended GI Narrative: Very tender epigastrium but otherwise benign abdomen. No guarding or rebound. Auscultation: normoactive bowel sounds Palpation: soft Back/Spine no CVA tenderness General Back: other FROM Extremity normal to inspection General Extremety ED: Negative for edema, pulses abnormal or tenderness General Extremity: Negative for edema or pulses abnormal Neuro oriented x3, CN's II-XII intact bilaterally and no sensory deficits noted Sensorium / Orientation: awake and alert Motor Exam: strength 5/5 throughout Psych mental status grossly normal and thought process normal Skin no rashes or lesions noted and no wounds MDM MDM MDM Narrative Medical decision making narrative: Labs including liver enzymes, lipase, CT abdomen/pelvis obtained while we treated her pain and nausea and provided IV fluids. I reviewed the CT images and the report which I agree with, it actually looks pretty good showing nothing acute in the right upper quadrant/epigastrium, no evidence radiographically of pancreatitis, resolution of the biliary dilatation that was seen on the prior scan. There is no abnormal pneumobilia. Liver enzymes slightly elevated but improved compared with what they were 1 week ago at this facility. However lipase was normal then at 29 and today it is 100 which is just slightly elevated. Possible this is early pancreatitis. Patient is doing much, much better after the medications and fluids we gave her. I reached out to [facility], the internal medicine quarterback referred me to the ERCP GI physician on-call, he did not want/need to speak to me, but basically said that the patient could be managed medically like any other patient without the need for transfer back to [facility]. I did also discuss with our environmental protection inspector Dr. Traylor. He concurs that the patient is much less likely to have a pancreatic duct obstruction from a plastic biliary stent, and therefore does not need urgent ERCP or other studies to evaluate this especially with a lipase of only 100. He also confirms that would be reasonable to treat the patient for mild early pancreatitis as we would from any cause; since her symptoms are well-controlled, as an outpatient with clear liquids and symptom control with analgesics. I offered admission to the patient she declines and states she is feeling better after analgesics and is willing to try it as an outpatient as above. History & Record Review Additional record(s) reviewed:: Prior ED visit (1 week ago, seen for similar pain, fever, transferred to [facility] and had the stent exchanged) Lab Data Attestation: I reviewed the patient's lab results. Labs: Laboratory Results - last 24 hr 01/03/24 21:07 WBC 12.0 H RBC 5.30 Hgb 15.3 H Hct 47.1 H MCV 88.9 MCH 28.9 MCHC 32.5 RDW Std Deviation 44.5 H RDW Coeff of Josy 13.5 Plt Count 367 MPV 10.0 Immature Gran % (Auto) 0.700 Neut % (Auto) 81.6 H Lymph % (Auto) 13.0 L [place] % (Auto) 2.7 Eos % (Auto) 1.7 Baso % (Auto) 0.3 Absolute Neuts (auto) 9.8 H Absolute Lymphs (auto) 1.57 Nucleated RBC % 0 Sodium 134 L Potassium 3.9 Chloride 99 Carbon Dioxide 25.0 Anion Gap 10 BUN 11 Creatinine 1.01 Estim Creat Clear Calc 71.33 Est GFR (MDRD) Af Amer 76 Est GFR (MDRD) Non-Af 63 BUN/Creatinine Ratio 10.9 Glucose 133 H Calcium 9.4 Total Bilirubin 1.40 H AST 39 H ALT 89 H Alkaline Phosphatase 270 H Total Protein 9.1 H Albumin 3.8 Globulin 5.3 H Albumin/Globulin Ratio 0.7 L Lipase 100 H Radiography Diagnostic Testing: Clinical Impression(s) from Imaging Studies Abdomen/Pelvis CT 01/03/24 21:22 IMPRESSION: 1. Interval placement of biliary stent with resolution of biliary ductal dilatation. 2. No change in bibasilar pulmonary nodules. Electronically Signed: Mendoza Balderrama MD at 22:29 EDT , Management Discussion w/another healthcare provider: Supply Chain Logistics Manager (Several, see above) Discharge Plan Triage Chief Complaint: Abd Pain ED Provider: Nirmal Amaya Dx/Rx/DC Orders Clinical Impression: Acute epigastric pain, History of biliary duct stent placement, Elevated lipase Instructions: ED Clear Liquid Diet, ED Pancreatitis, ED Full Liquid Diet Prescriptions: New ondansetron 8 mg tablet,disintegrating 8 mg PO Q8H PRN (Reason: nausea and vomiting) Qty: 20 0RF oxycodone-acetaminophen 5-325 mg tablet 1 tab PO Q4H PRN (Reason: Pain) 4 Days Qty: 20 0RF No Action tacrolimus 1 MG capsule 2.5 mg PO BID Patient Comments: Antirejection medication metoprolol tartrate 25 MG tablet 25 mg PO BID PRN (Reason: Blood Pressure Elevation) Rx Instructions: Take twice daily for BP> 160/100 venlafaxine 75 mg tablet 75 mg PO DAILY lisinopril 20 mg tablet 20 mg PO DAILY Primary Care Provider: Zachary Tijerina Referrals: Zachary Tijerina MD [Primary Care Provider] - 3-5 Days if not improving (or your [facility] doctor(s)) Activity Restrictions/Additional Instructions: Start with clear liquid diet for the next 48 hours or so. If you are doing well, you may advance to full liquid diet for 24-48 hours, then may try soft bland foods. Print Language: Uzbek Disposition Disposition: Home, Self Care
[2024-01-03] MEDS: 0.9% Normal Saline (1000mL) 1,000 ML 999 ML IV (21:33)
[2024-01-03] MEDS: Ondansetron 4 MG/2 ML Vial IV (21:33)
[2024-01-03] MEDS: HYDROmorphone 1 MG/ML Syringe IV (21:33)
[2024-01-03 21:34] VITALS: BP 165/102; PULSE 102; RESP 16; O2SAT 100
[2024-01-03 21:36] VITALS: BMI 28.1
[2024-01-03 21:38] VITALS: TEMP 36.7
[2024-01-03 21:47] LABS: Absolute Lymphocyte Count 1.57 X10^3/uL (0.83-4.51); Absolute Neutrophil Count 9.8 X10^3/uL (2.0-7.7); Basophil# 0.04 X10^3/uL; Basophil% 0.3 % (0-1); Eosinophils% 1.7 % (0-5); Hematocrit 47.1 % (37-47); Hemoglobin 15.3 g/dL (12.0-15.0); Lymphocyte # 1.57 X10^3/ul (0.83-4.51); Mean Corp Hgb Conc 32.5 g/dL (32-36); Mean Corpuscular Hgb 28.9 pg (27.0-32.0); Mean Corpuscular Volume 88.9 fL (81-99); Monocyte# 0.32 X10^3/uL; Monocyte% 2.7 % (0-10); NRBC Flagged by Analyzer 0 % (0-5); Neutrophil # 9.83 X10^3/uL (2.7-7.7); Neutrophil % 81.6 % (47-70); Platelet Count 367 K/mm3 (150-450); RBC Distribution Width CV 13.5 % (11.6-14.6); RBC Distribution Width SD 44.5 fl (35.1-43.9)
[2024-01-03 22:06] LABS: ALB/GLOB Ratio 0.7 RATIO (0.9-2.4); AST(SGOT) 39 U/L (15-37); Alanine Aminotransfer ALT/SGPT 89 U/L (13-56); Albumin, Serum 3.8 g/dL (3.2-5.0); Alkaline Phosphatase 270 U/L (45-117); Anion Gap 10 (5-15); BUN 11 mg/dL (7-18); BUN/Creat Ratio 10.9 RATIO (10-20); Calcium,Total 9.4 mg/dL (8.5-10.1); Chloride 99 mmol/L (98-107); Creatinine, Serum 1.01 mg/dL (0.55-1.02); EST Glomerular Filtration Rate 63 mL/min (>60); Est Glom Filt Rate - Afr Amer 76 mL/min (>60); Estimated Creatinine Clearance 71.33 ml/min; Globulin 5.3 g/dL (2.2-4.2); Glucose 133 mg/dL (74-106); Lipase 100 U/L (13-75); Potassium 3.9 mmol/L (3.5-5.1); Protein, Total 9.1 g/dL (6.4-8.2); Sodium Level 134 mmol/L (136-145)
[2024-01-03 22:09] VITALS: BP 145/90; PULSE 71; RESP 16; O2SAT 99
[2024-01-04] VITALS: BP 164/103; PULSE 76; RESP 16; O2SAT 99
[2024-01-04] MEDS: HYDROmorphone 1 MG/ML Syringe IV (00:20)
[2024-01-04 01:19] VITALS: BP 152/99; PULSE 71; RESP 16; TEMP 37.1; O2SAT 97
== END 2024-01-04 01:20 | disposition home or self-care (01) ==
PROVIDERS: Emergency Provider Emergency Medicine; PCP Internal Medicine; Visit Provider Emergency Medicine
DX: R10.13 Epigastric pain (principal); C7A.00 Malignant carcinoid tumor of unspecified site; Z94.4 Liver transplant status; R74.8 Abnormal levels of other serum enzymes
CPT/HCPCS: 74177; 80053; 83690; 85025; 96361; 96374; 96375; 96376; 99283; J7030; Q9967; A4216; J2405

== ENCOUNTER 2024-01-29 11:45 | Emergency (ER) | payer MEDICARE, MEDICAID, SELFPAY ==
[2024-01-29 11:46] VITALS: BP 129/84; PULSE 78; RESP 16; TEMP 36.4; O2SAT 97; BMI 27.8
--- NOTE | 2024-01-29 11:48 | EDS_ITS ---
HPI History of Present Illness Chief Complaint: Abd Pain [facility] Medical History (Updated 01/29/24 @ 13:[address] 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 Diarrhea History of migraine Pulmonary emboli Home Medications ?Medication ?Instructions ?Recorded ?Last Taken ?Type tacrolimus 1 mg capsule, 2.5 mg PO BID anti rejection 10/28/13 08/07/18 06:30 History immediate-release metoprolol tartrate 25 mg tablet 25 mg PO BID PRN Blood Pressure 08/07/18 08/07/18 06:30 History Elevation lisinopril 20 mg tablet 20 mg PO DAILY 12/27/23 Unknown History venlafaxine 75 mg tablet 75 mg PO DAILY anxiety 12/27/23 Unknown History ondansetron 8 mg disintegrating 8 mg PO Q8H PRN nausea and 01/04/24 Unknown Rx tablet vomiting #20 tabs oxycodone-acetaminophen 5 mg-325 1 tab PO Q4H PRN Pain 4 days #20 01/04/24 Unknown Rx mg tablet TABLETS ondansetron 4 mg disintegrating 4 mg PO Q8H PRN PRN Nausea #10 tabs 01/29/24 Unknown Rx tablet oxycodone 5 mg capsule 5 mg PO Q6H PRN pain 3 days #14 01/29/24 Unknown Rx caps Allergy/AdvReac Type Severity Reaction Status Date / Time morphine Allergy red line Verified 01/29/24 11:46 up her arm vancomycin Allergy red man Verified 01/29/24 11:46 syndrome Surgical History (Updated 01/12/24 @ 00:02 by Ernesto Mcgee) History of appendectomy History of cholecystectomy History of mastectomy History of liver transplant Social History Smoking Status: Never smoker EXAM Physical Exam Const Vital Signs: 01/29/24 11:46 01/29/24 11:49 01/29/24 12:49 Temperature 97.6 F L 97.4 F L 98.9 F Temperature Source Temporal Temporal Temporal Pulse Rate 78 71 70 Respiratory Rate 16 18 19 H Blood Pressure 129/84 H 116/72 127/65 H Blood Pressure Mean 99 86 85 Pulse Ox 97 97 97 Oxygen Delivery Method Room Air Room Air 01/29/24 13:00 Temperature 98.4 F Temperature Source Temporal Pulse Rate 70 Respiratory Rate 20 H Blood Pressure 129/77 H Blood Pressure Mean 94 Pulse Ox 99 Oxygen Delivery Method [place] [facility] [place] Medical decision making narrative: HISTORY OF PRESENT ILLNESS: 48-year-old female presents with abdominal pain. She states she has had several days of abdominal pain right upper quadrant. Denies any jaundice. Denies any vomiting. Denies fever. Denies difficulty urinating. Notes biliary stent still in place. Notes she does not follow with her operating surgeon as of yet. REVIEW OF SYSTEMS: Pertinent positives: Abdominal abdominal pain, nausea Pertinent negatives: [As per HPI PHYSICAL EXAM: Nursing triage notes reviewed, Vital signs reviewed Constitutional: please see [facility] HENT: MMM Eyes: Pupils equal round and reactive to light, Extraocular muscles intact Neck: No stridor, no JVD, full neck ROM Lungs: Clear to auscultation, No wheezing or rales. No increased work of breathing, no conversational dyspnea, no accessory muscle use, no nasal flaring. No respiratory distress noted Heart: Regular rate and rhythm, No murmurs, No rubs and No gallops, 2+ distal pulses (radial, femoral, posterior tibial) in all extremities Abdomen: Soft, there is no tenderness, rigidity, rebound or guarding, no obvious peritoneal signs, no palpable pulsatile abdominal masses, no auscultated abdominal bruit. Stent placed, site clean dry intact. : No CVAT Extremities: No edema Neuro: No focal neurological deficits, cranial nerves II through XII intact, 5/5 strength in all extremities. Intact sensation to light touch in all extremities, 2+ reflexes bilateral patella tendons. Normal gait. No ataxia. Skin: No rash or lesions noted MEDICAL DECISION MAKING: Chief Complaint: Abdominal pain External records reviewed: CT scan abdomen pelvis from 01/03/2024 shows the following MPRESSION: 1. Interval placement of biliary stent with resolution of biliary ductal dilatation. 2. No change in bibasilar pulmonary nodules. Factors affecting care: history of liver transplant on tacrolimus, status post appendectomy and cholecystectomy, history of carcinoid tumor, hypertension Social determinants of health: none History obtained from others: none Consults: none [facility] Narrative: Patient was hemodynamically stable, afebrile and nontoxic-appearing. Exam without obvious peritoneal signs. I considered the following differential diagnosis: AAA, small bowel obstruction, abdominal perforation, appendicitis, pancreatitis, hepatobiliary pathology (acute cholecystitis, biliary ductal dilatation, biliary obstruction mesenteric ischemia, pathology (ie nephrolithiasis, pyelonephritis). I obtained a broad lab and imaging workup to further elucidate the etiology patient complaints. I treat the patient with IV fluids, Zofran and Toradol for symptomatic control.), ALL IMAGES (IF OBTAINED) HAVE BEEN PERSONALLY REVIEWED AND INTERPRETED BY MYSELF. CBC with downtrending leukocytosis, no anemia or thrombocytopenia BMP without significant electrolyte disturbances, signs of endorgan hypoperfusion or metabolic acidosis LFTs are all downtrending from prior lipase is within normal limits and has resolved from prior study (100) The synthesis of the patient's history, physical exam, labs images suggest no acute life-limiting etiology. She is likely having ongoing pain from known carcinoid tumor, m tumor burden and stent placement. No indication for admission or transfer at this time. No indication for acute surgical evaluation. Patient was given instructions to take Zofran, oxycodone and follow-up with her treating surgeon at the next available appointment to return if symptoms change or worsen The patient and/or family, caregivers express understanding. The patient and/or family, caregivers agrees with the plan. Shared decision making: I will have a discussion with the patient and or visitors regarding risk/benefits of further testing or admission. They will be made aware of of the risk/benefits inherent in this decision they will be given the opportunity to voice understanding. Total critical care time today provided was at least 0 minutes. This excludes separately billable procedures. Critical care time (if documented) is secondary to the patient having high probability of clinically significant/life threatening deterioration in the patient's condition which required my urgent intervention. Impression: 1. Right upper quad abdominal pain 2. History of biliary stent 3. Hyperbilirubinemia Dispo: Discharge home This note was generated with [employer] dictation software. It may contain incorrect words, spelling, and punctuation that were not noted in review of the chart prior to signing. Lab Data Labs: Laboratory Results - last 24 hr 01/29/24 12:00 WBC 11.8 H RBC 4.21 Hgb 12.6 Hct 37.6 MCV 89.3 MCH 29.9 MCHC 33.5 RDW Std Deviation 48.0 H RDW Coeff of Josy 14.8 H Plt Count 187 MPV 9.6 Immature Gran % (Auto) 0.300 Neut % (Auto) 88.1 H Lymph % (Auto) 7.1 L Ritchie % (Auto) 3.7 Eos % (Auto) 0.6 Baso % (Auto) 0.2 Absolute Neuts (auto) 10.4 H Absolute Lymphs (auto) 0.84 Nucleated RBC % 0 Sodium 136 Potassium 4.2 Chloride 103 Carbon Dioxide 29.0 Anion Gap 4 L BUN 9 Creatinine 1.07 H Estim Creat Clear Calc 66.95 Est GFR (MDRD) Af Amer 71 Est GFR (MDRD) Non-Af 58 L BUN/Creatinine Ratio 8.4 L Glucose 154 H Calcium 8.8 Total Bilirubin 5.60 H Direct Bilirubin 3.97 H AST 133 H ALT 128 H Alkaline Phosphatase 211 H Total Protein 7.6 Albumin 3.4 Globulin 4.2 Lipase 21 Radiography Diagnostic Testing: Clinical Impression(s) from Imaging Studies Abdomen/Pelvis CT 01/29/24 11:50 IMPRESSION: Essentially stable examination except for slight enlargement of the nodular density seen in the posterior medial segment of the right lower lobe. Fatty infiltration of the liver. No evidence of biliary dilatation at this time. Electronically Signed: Dakota Anaya MD at 13:06 EDT , Discharge Plan Triage Chief Complaint: Abd Pain ED Provider: Carlos Pro Dx/Rx/DC Orders Instructions: Biliary Stent Dc Prescriptions: New ondansetron 4 mg tablet,disintegrating 4 mg PO Q8H PRN PRN (Reason: Nausea) Qty: 10 0RF oxycodone 5 mg capsule 5 mg PO Q6H PRN (Reason: pain) 3 Days Qty: 14 0RF No Action tacrolimus 1 MG capsule 2.5 mg PO BID Patient Comments: Antirejection medication metoprolol tartrate 25 MG tablet 25 mg PO BID PRN (Reason: Blood Pressure Elevation) Rx Instructions: Take twice daily for BP> 160/100 venlafaxine 75 mg tablet 75 mg PO DAILY lisinopril 20 mg tablet 20 mg PO DAILY ondansetron 8 mg tablet,disintegrating 8 mg PO Q8H PRN (Reason: nausea and vomiting) Qty: 20 0RF oxycodone-acetaminophen 5-325 mg tablet 1 tab PO Q4H PRN (Reason: Pain) 4 Days Qty: 20 0RF Primary Care Provider: Zachary Tijerina Referrals: Zachary Tijerina MD [Primary Care Provider] - Activity Restrictions/Additional Instructions: Thank you for trusting us with your care today! Your labs and images were reassuring. While you continue to have elevation in your bilirubin and other liver enzymes they are downtrending from prior study. Total bilirubin is downtrending from 7.4 to 5.6 Direct bilirubin is downtrending from 5.25 to 3.97 AST 176 to 133 ALT 195 to 128 Alkaline phosphatase 328 to 211 Lipase 100 to 21 Please take Tylenol (2 pills, 650 mg), ibuprofen (2 pills, 400 mg) every 6 hours as needed for pain and fever control. Please take oxycodone for breakthrough pain if the above regimen does not control your pain Please take Zofran as needed for nausea and vomiting. Please return to the emergency department if your symptoms change or worsen. Please follow with your operating surgeon for further outpatient evaluation and management. Print Language: Citizen Of [place] Disposition Disposition: Home, Self Care
[2024-01-29 11:49] VITALS: BP 116/72; PULSE 71; RESP 18; TEMP 36.3; O2SAT 97
--- NOTE | 2024-01-29 11:50 | CT_ITS ---
STUDY: CT ABDOMEN AND PELVIS WITH CONTRAST REASON FOR EXAM: Female, 48 years old. Abdominal pain. Prior liver transplant. History of pancreatitis and neural endocrine tumor/carcinoid tumor. RADIATION DOSAGE (If Supplied By Facility): CTDIvol = ( 17.22 ) mGy, DLP = ( 981.29 ) mGycm TECHNIQUE: Transaxial images were obtained from the dome of the diaphragm to the symphysis pubis without oral contrast. IV 100mL [id number]-300 was administered. Sagittal and coronal images were reconstructed. Individualized dose optimization techniques were used for this CT. COMPARISON: Comparison is made with prior study dated January 03, 2024. FINDINGS: There is evidence of bilateral breast implants. There is a 1.5 cm x 1.3 cm well-defined nodule in the right middle lobe adjacent to the right cardiac border. This also evidence of a 1.2 cm x 1.8 cm nodule in the posterior medial segment of the right lower lobe. This has increased in size as compared to prior study. Stable 1.2 cm lobulated nodule in the anterior aspect of the left lower lobe rotation to the left cardiac border. The visualized portions of the heart are within normal limits. There is decreased attenuation of the liver consistent with steatosis. A biliary stent is seen within the common bile duct extending to the region of the benjie hepatis. The distal tip is in the duodenum. There is a 1 cm hypodensity in the head of the pancreas adjacent to the uncinate process. This has decreased slightly in size. The patient is status post cholecystectomy. There is mild splenomegaly. Normal pancreas. Normal bilateral adrenal glands. Normal right kidney. Normal left kidney. Normal visualized stomach. Normal small intestine. Normal colon. The patient is status post appendectomy. Normal abdominal aorta. Normal inferior vena cava. Normal retroperitoneum. Normal urinary bladder. IUD is seen within the uterus. Stable small umbilical hernia. Mild increased markings in the subcutaneous fat overlying both gluteal regions most likely secondary to prior injections. Normal osseous structures. CT/Abdomen/Pelvis W IV Cont ONLY IMPRESSION: Essentially stable examination except for slight enlargement of the nodular density seen in the posterior medial segment of the right lower lobe. Fatty infiltration of the liver. No evidence of biliary dilatation at this time. Electronically Signed: Dakota Anaya MD at 13:06 EDT ,
[2024-01-29 12:05] LABS: Absolute Lymphocyte Count 0.84 X10^3/uL (0.83-4.51); Absolute Neutrophil Count 10.4 X10^3/uL (2.0-7.7); Basophil# 0.02 X10^3/uL; Basophil% 0.2 % (0-1); Eosinophil# 0.07 X10^3/uL; Eosinophils% 0.6 % (0-5); Hematocrit 37.6 % (37-47); Hemoglobin 12.6 g/dL (12.0-15.0); Lymphocyte # 0.84 X10^3/ul (0.83-4.51); Lymphocyte % 7.1 % (19-41); Mean Corp Hgb Conc 33.5 g/dL (32-36); Mean Corpuscular Hgb 29.9 pg (27.0-32.0); Mean Corpuscular Volume 89.3 fL (81-99); Mean Platelet Vol. 9.6 fl (6.2-12.0); Monocyte# 0.44 X10^3/uL; Monocyte% 3.7 % (0-10); NRBC Flagged by Analyzer 0 % (0-5); Neutrophil # 10.39 X10^3/uL (2.7-7.7); Neutrophil % 88.1 % (47-70); Platelet Count 187 K/mm3 (150-450); RBC Distribution Width CV 14.8 % (11.6-14.6); Red Blood Count 4.21 M/mm3 (4.2-5.4); White Blood Count 11.8 K/mm3 (4.4-11.0)
[2024-01-29] MEDS: 0.9% Normal Saline (1000mL) 1,000 ML 999 ML IV (12:21)
[2024-01-29 12:22] LABS: AST(SGOT) 133 U/L (15-37); Alanine Aminotransfer ALT/SGPT 128 U/L (13-56); Albumin, Serum 3.4 g/dL (3.2-5.0); Alkaline Phosphatase 211 U/L (45-117); Anion Gap 4 (5-15); BUN 9 mg/dL (7-18); BUN/Creat Ratio 8.4 RATIO (10-20); Bilirubin, Direct 3.97 mg/dL (0.00-0.30); Calcium,Total 8.8 mg/dL (8.5-10.1); Chloride 103 mmol/L (98-107); Creatinine, Serum 1.07 mg/dL (0.55-1.02); EST Glomerular Filtration Rate 58 mL/min (>60); Est Glom Filt Rate - Afr Amer 71 mL/min (>60); Estimated Creatinine Clearance 66.95 ml/min; Globulin 4.2 g/dL (2.2-4.2); Glucose 154 mg/dL (74-106); Lipase 21 U/L (13-75); Potassium 4.2 mmol/L (3.5-5.1); Protein, Total 7.6 g/dL (6.4-8.2); Sodium Level 136 mmol/L (136-145)
[2024-01-29] MEDS: Ondansetron 4 MG/2 ML Vial IV (12:22)
[2024-01-29] MEDS: Ketorolac 15 MG/ML Vial IV (12:22)
[2024-01-29 12:49] VITALS: BP 127/65; PULSE 70; RESP 19; TEMP 37.2; O2SAT 97
[2024-01-29 13:00] VITALS: BP 129/77; PULSE 70; RESP 20; TEMP 36.9; O2SAT 99
[2024-01-29 13:35] VITALS: BP 135/74; PULSE 70; RESP 19; TEMP 36.9; O2SAT 98
== END 2024-01-29 14:15 | disposition home or self-care (01) ==
PROVIDERS: Emergency Provider Emergency Medicine; PCP Internal Medicine; Visit Provider Emergency Medicine
DX: R10.11 Right upper quadrant pain (principal); Z94.4 Liver transplant status; E80.6 Other disorders of bilirubin metabolism; I10 Essential (primary) hypertension; Z90.49 Acquired absence of other specified parts of digestive tract; Z79.621 Long term (current) use of calcineurin inhibitor; Z96.89 Presence of other specified functional implants
CPT/HCPCS: 74177; 80048; 80076; 83690; 85025; 96361; 96374; 96375; 99282; J7030; Q9967; A4216; J2405

== ENCOUNTER 2024-05-14 11:18 | Emergency (ER) | payer MEDICARE, MEDICAID, SELFPAY ==
[2024-05-14 11:18] VITALS: BP 165/100; PULSE 101; RESP 18; TEMP 37.2; O2SAT 99; BMI 27.1
--- NOTE | 2024-05-14 11:37 | US_ITS ---
STUDY: ABDOMINAL ULTRASOUND - RIGHT UPPER QUADRANT REASON FOR VISIT: Female, 49 years old right upper quadrant pain. TECHNIQUE: Ultrasound evaluation of the right upper quadrant was performed with real-time and static call-scale imaging. TECHNICAL QUALITY: Adequate. COMPARISON: Comparison is made with prior CT scans and pelvis done earlier today. FINDINGS: Liver: The liver measures 12.6 cm. There is increased echogenicity consistent with fatty infiltration. The bile ducts are within normal limits. There is hepatic color flow. The direction of portal flow is hepatopetal. There is no demonstrated mass lesion. Gallbladder: The patient is status post cholecystectomy. A biliary stent is seen. Common Bile Duct (C.B.D.): The common bile duct not well seen due to gas. Pancreas: There is nonvisualization of the pancreas due to overlying bowel gas. Right Kidney: Normal size of the right kidney. The right kidney measures 10 cm x 5.8 cm x 5.7 cm. Normal renal cortex. The right cortex measures 1.8 cm. There is no demonstrated renal mass or cyst. There is no right hydronephrosis. US/Gallbladder IMPRESSION: Fatty infiltration of the liver. Status post cholecystectomy. Common bile duct stent is seen. Electronically Signed: Dakota Anaya MD at 13:29 EDT ,
--- NOTE | 2024-05-14 11:39 | EX.ED.DYSGE1 ---
HPI <BEN Rondon - Last Filed: 05/14/24 13:50> History of Present Illness Chief Complaint: Abd Pain Narrative Narrative: Patient is a 49-year-old female with history of hypertension, liver transplant 2008, patient states that she does see [facility], on 05/04/2024, patient had bile duct replacement surgery. Patient states that she is continue to have epigastric pain, she states she is concerned she might have pancreatitis. For the last 2 days, she has been having nausea, vomiting and she has diarrhea but this is chronic. She states the pain is unbearable and she is here for evaluation. She has not reached out to the surgical team at [facility]. Denies any fever chills, blood in stool or vomit. 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 Diarrhea History of migraine Pulmonary emboli Home Medications ?Medication ?Instructions ?Recorded ?Last Taken ?Type tacrolimus 1 mg capsule, 2.5 mg PO BID anti rejection 10/28/13 08/07/18 06:30 History immediate-release metoprolol tartrate 25 mg tablet 25 mg PO BID PRN Blood Pressure 08/07/18 08/07/18 06:30 History Elevation lisinopril 20 mg tablet 20 mg PO DAILY 12/27/23 Unknown History venlafaxine 75 mg tablet 75 mg PO DAILY anxiety 12/27/23 Unknown History ondansetron 8 mg disintegrating 8 mg PO Q8H PRN nausea and 01/04/24 Unknown Rx tablet vomiting #20 tabs oxycodone-acetaminophen 5 mg-325 1 tab PO Q4H PRN Pain 4 days #20 01/04/24 Unknown Rx mg tablet TABLETS ondansetron 4 mg disintegrating 4 mg PO Q8H PRN PRN Nausea #10 tabs 01/29/24 Unknown Rx tablet oxycodone 5 mg capsule 5 mg PO Q6H PRN pain 3 days #14 01/29/24 Unknown Rx caps omeprazole 40 mg capsule,delayed 40 mg PO DAILY #30 caps 05/14/24 Unknown Rx release ondansetron 4 mg disintegrating 4 mg PO Q8H PRN PRN Nausea #10 tabs 05/14/24 Unknown Rx tablet Allergy/AdvReac Type Severity Reaction Status Date / Time morphine Allergy red line Verified 05/14/24 11:19 up her arm vancomycin Allergy red man Verified 05/14/24 11:19 syndrome Surgical History (Updated 05/14/24 @ 15:[address] Gen Good DO) History of appendectomy History of cholecystectomy History of mastectomy History of liver transplant Social History Smoking Status: Never smoker ROS <Dylon Araya NP-C - Last Filed: 05/14/24 13:50> ROS ED ROS Narrative Constitutional: Negative for fever, chills, weight loss, weakness Eyes: Negative for vision loss, vision change, double vision ENT: Negative for any sore throat, ear pain, congestion Cardiovascular: Negative for any chest pain, tightness, palpitations Respiratory: Negative for any cough, sputum production, hemoptysis, dyspnea, dyspnea on exertion, orthopnea Gastrointestinal: Negative for any constipation, blood in stool, blood in vomit. Positive for abdominal pain, nausea and vomiting diarrhea : Negative for any urinary frequency, dysuria, retention, blood in urine Muscle skeletal: Negative for any neck pain, back pain Neurological: Negative for any headache, syncope, dizziness Skin: Negative for any rashes, itching, abrasions, lacerations Psychiatric: Negative for any depression, anxiety, stress, suicidal ideation, homicidal ideation Hematologic: Negative for any excessive bruising, easy bleeding EXAM <BEN Rondon - Last Filed: 05/14/24 13:50> Physical Exam Narrative Exam Narrative: Vital signs reviewed. HEET: Head normocephalic atraumatic, TMs clear bilaterally. Posterior pharynx is clear, moist mucous membranes. Nares clear bilaterally. Neck: Supple with no lymphadenopathy or tenderness. No signs of meningismus. Cardiac: Regular rate and rhythm no murmurs gallops or rubs, equal peripheral pulses bilaterally. Respiratory: Lungs clear to auscultation bilaterally. No chest tenderness. Abdomen: Soft, nondistended. No abdominal bruit or pulsatile masses. No hepatosplenomegaly. Patient's tenderness is more midline epigastric area, negative Dooley sign. Active bowel sounds in all quadrants. Abdomen is soft, no evidence of any peritoneal signs. Extremities: No peripheral edema, no signs of gross trauma or deformity. Active full range of motion of all extremities. Neuro: Cranial nerves II through XII intact, no focal neurological deficits. Skin: Clean dry and intact with no rash, purpura, petechiae, vesicles or pustules. Backs/flank: No CVA tenderness, no midline spinal tenderness, no deformity. Psych: Normal mood and affect. No SI, HI or acute psychosis. Const Vital Signs: 05/14/24 11:18 05/14/24 13:18 Temperature 99 F Temperature Source Temporal Pulse Rate 101 H 93 Respiratory Rate 18 16 Blood Pressure 165/100 H 146/92 H Blood Pressure Mean 121 110 Pulse Ox 99 98 Oxygen Delivery Method Room Air Room Air Positive well nourished and well developed General Appearance ED: well developed <Dr. Gen Good DO - Last Filed: 05/14/24 15:51> Physical Exam Const Vital Signs: 05/14/24 11:18 05/14/24 13:18 Temperature 99 F Temperature Source Temporal Pulse Rate 101 H 93 Respiratory Rate 18 16 Blood Pressure 165/100 H 146/92 H Blood Pressure Mean 121 110 Pulse Ox 99 98 Oxygen Delivery Method Room Air Room Air MDM <BEN Rondon - Last Filed: 05/14/24 13:50> MDM Lab Data Labs: Laboratory Results - last 24 hr 05/14/24 05/14/24 05/14/24 11:35 12:30 14:00 WBC 19.1 H RBC 5.16 Hgb 15.6 H Hct 45.3 MCV 87.8 MCH 30.2 MCHC 34.4 RDW Std Deviation 41.8 RDW Coeff of Josy 13.0 Plt Count 233 MPV 9.9 Immature Gran % (Auto) 0.800 Neut % (Auto) 86.4 H Lymph % (Auto) 9.6 L [place] % (Auto) 2.1 Eos % (Auto) 0.8 Baso % (Auto) 0.3 Absolute Neuts (auto) 16.5 H Absolute Lymphs (auto) 1.83 Nucleated RBC % 0 Sodium 133 L Potassium 4.3 Chloride 101 Carbon Dioxide 25.0 Anion Gap 7 BUN 11 Creatinine 0.87 Estim Creat Clear Calc 80.51 Est GFR (MDRD) Af Amer 90 Est GFR (MDRD) Non-Af 74 BUN/Creatinine Ratio 12.6 Glucose 127 H Lactic Acid 1.6 Calcium 9.3 Total Bilirubin 1.00 Direct Bilirubin 0.24 AST 21 ALT 27 Alkaline Phosphatase 125 H Total Protein 8.4 H Albumin 3.8 Globulin 4.6 H Lipase 29 Urine Color Yellow Urine Clarity Clear Urine pH 7.0 Ur Specific [place] 1.010 Urine Protein Negative Urine Glucose (UA) Normal Urine Ketones Negative Urine Occult Blood Negative Urine Nitrite Negative Urine Bilirubin Negative Urine Urobilinogen Normal Ur Leukocyte Esterase Negative Urine RBC 0 SEEN Urine WBC 0 SEEN Ur Squamous Epith Cells 0-5 SEEN Urine Bacteria 0 SEEN Urine Mucus 0 SEEN Radiography Diagnostic Testing: Clinical Impression(s) from Imaging Studies Gallbladder Ultrasound 05/14/24 11:37 IMPRESSION: Fatty infiltration of the liver. Status post cholecystectomy. Common bile duct stent is seen. Electronically Signed: Dakota Anaya MD at 13:29 EDT , Abdomen/Pelvis CT 05/14/24 11:58 IMPRESSION: Status post biliary stent placement. Status post cholecystectomy. Stable pulmonary nodules. Electronically Signed: Dakota Anaya MD at 12:49 EDT , Treatment and Re-Evaluation :: Differential diagnosis includes however is not limited to: Biliary duct Abnormality, acute pancreatitis, acute cholecystitis, biliary colic, bowel obstruction, GERD Patient appears generally well, vital signs are stable, patient is nontoxic-appearing. Patient presenting to the emerged part with complaints of epigastric pain is been ongoing for the last 2 days. Patient does have a long history of abdominal surgeries, secondary to a liver transplant 2008. All of her care is at the [facility]. Patient did have a biliary stent replaced on 05/04/2024. Patient will receive full abdominal workup, CBC BMP, liver panel, lipase. Patient will receive IV fluids, IV Dilaudid, Zofran. Patient will receive a right upper quadrant ultrasound. All radiologic examinations were read, reviewed by the emergency department attending. From these reads, a plan of care will be put in place. Patient will be reevaluated. CT scan of the abdomen pelvis shows status post biliary stent placement, status postcholecystectomy, stable pulmonary nodules. Patient's gallbladder ultrasound shows fatty infiltration of liver, status postcholecystectomy, common bile duct stent is seen. On reevaluation, the patient was feeling improved. After speaking with the patient further, the patient did recently get off of steroids secondary to having a contact dermatitis and poison oak, this does explain the patient's leukocytosis. Patient's steroids can also cause the gastritis which is where she is having pain. On my examination, the patient's stent placement the biliary duct is within normal limits. At this time, patient be able to discharge home. Patient was able to pass a p.o. challenge. She be given Zofran as well as a PPI for home. She will continue to follow-up outpatient. All questions answered, instructed return for any worsening abdominal pain, fever chills nausea or vomiting. <Dr. Gen Good, DO - Last Filed: 05/14/24 15:51> [facility] Lab Data Attestation: I reviewed the patient's lab results. Labs: Laboratory Results - last 24 hr 05/14/24 05/14/24 05/14/24 11:35 12:30 14:00 WBC 19.1 H RBC 5.16 Hgb 15.6 H Hct 45.3 MCV 87.8 MCH 30.2 MCHC 34.4 RDW Std Deviation 41.8 RDW Coeff of Josy 13.0 Plt Count 233 MPV 9.9 Immature Gran % (Auto) 0.800 Neut % (Auto) 86.4 H Lymph % (Auto) 9.6 L [place] % (Auto) 2.1 Eos % (Auto) 0.8 Baso % (Auto) 0.3 Absolute Neuts (auto) 16.5 H Absolute Lymphs (auto) 1.83 Nucleated RBC % 0 Sodium 133 L Potassium 4.3 Chloride 101 Carbon Dioxide 25.0 Anion Gap 7 BUN 11 Creatinine 0.87 Estim Creat Clear Calc 80.51 Est GFR (MDRD) Af Amer 90 Est GFR (MDRD) Non-Af 74 BUN/Creatinine Ratio 12.6 Glucose 127 H Lactic Acid 1.6 Calcium 9.3 Total Bilirubin 1.00 Direct Bilirubin 0.24 AST 21 ALT 27 Alkaline Phosphatase 125 H Total Protein 8.4 H Albumin 3.8 Globulin 4.6 H Lipase 29 Urine Color Yellow Urine Clarity Clear Urine pH 7.0 Ur Specific [place] 1.010 Urine Protein Negative Urine Glucose (UA) Normal Urine Ketones Negative Urine Occult Blood Negative Urine Nitrite Negative Urine Bilirubin Negative Urine Urobilinogen Normal Ur Leukocyte Esterase Negative Urine RBC 0 SEEN Urine WBC 0 SEEN Ur Squamous Epith Cells 0-5 SEEN Urine Bacteria 0 SEEN Urine Mucus 0 SEEN Radiography Diagnostic Testing: Clinical Impression(s) from Imaging Studies Gallbladder Ultrasound 05/14/24 11:37 IMPRESSION: Fatty infiltration of the liver. Status post cholecystectomy. Common bile duct stent is seen. Electronically Signed: Dakota Anaya MD at 13:29 EDT , Abdomen/Pelvis CT 05/14/24 11:58 IMPRESSION: Status post biliary stent placement. Status post cholecystectomy. Stable pulmonary nodules. Electronically Signed: Dakota Anaya MD at 12:49 EDT , Treatment and Re-Evaluation :: Differential diagnosis includes however is not limited to: Biliary duct Abnormality, acute pancreatitis, acute cholecystitis, biliary colic, bowel obstruction, GERD Patient appears generally well, vital signs are stable, patient is nontoxic-appearing. Patient presenting to the emerged part with complaints of epigastric pain is been ongoing for the last 2 days. Patient does have a long history of abdominal surgeries, secondary to a liver transplant 2008. All of her care is at the [facility]. Patient did have a biliary stent replaced on 05/04/2024. Patient will receive full abdominal workup, CBC BMP, liver panel, lipase. Patient will receive IV fluids, IV Dilaudid, Zofran. Patient will receive a right upper quadrant ultrasound. All radiologic examinations were read, reviewed by the emergency department attending. From these reads, a plan of care will be put in place. Patient will be reevaluated. CT scan of the abdomen pelvis shows status post biliary stent placement, status postcholecystectomy, stable pulmonary nodules. Patient's gallbladder ultrasound shows fatty infiltration of liver, status postcholecystectomy, common bile duct stent is seen. On reevaluation, the patient was feeling improved. After speaking with the patient further, the patient did recently get off of steroids secondary to having a contact dermatitis and poison oak, this does explain the patient's leukocytosis. Patient's steroids can also cause the gastritis which is where she is having pain. On my examination, the patient's stent placement the biliary duct is within normal limits. At this time, patient be able to discharge home. Patient was able to pass a p.o. challenge. She be given Zofran as well as a PPI for home. She will continue to follow-up outpatient. All questions answered, instructed return for any worsening abdominal pain, fever chills nausea or vomiting. Attending note: 2-day history worsening epigastric pain with nausea vomiting today with no hematemesis. I have personally performed a face to face assessment of the patient and have reviewed the SHARIF note. I personally made/approved the management plan and take responsibility for the patient management. I performed a substantive portion of the visit including all aspects of the following. My alonzo findings include: Liver transplant recipient in 2008 followed by [facility]. She has had biliary stenosis and gets stents replaced. Initially was every 2 to 4 weeks, however states with new stenting's plastic is done every 8 weeks. Her last exchange was 10 days ago. She has had pancreatitis post ERCP in the past. She is concerned of this. In addition reports just finished prednisone taper. About a week ago for poison ana maria symptoms. Denies any black or bloody stools. Patient exam is nontoxic soft abdomen. Workup initiated abdominal labs including lipase and liver enzymes were normal. She had white count of 19. Likely steroid-induced. CT abdomen pelvis negative for acute process with biliary stent that stable. Right upper quadrant ultrasound no acute process unable to visualize the common bile duct due to bowel gas. Patient with her steroid recent use with epigastric pain will place her on omeprazole for gastritis treatment. Prescription for Zofran to use as needed. Outpatient follow-up. Discharge Plan Triage Chief Complaint: Abd Pain ED Midlevel Provider: Dylon Araya ED Provider: Gen Good Dx/Rx/DC Orders Clinical Impression: Leukocytosis, Gastritis, Liver transplant recipient Instructions: ED Gastritis (Adult) Prescriptions: New omeprazole 40 mg capsule,delayed release(DR/EC) 40 mg PO DAILY Qty: 30 1RF ondansetron 4 mg tablet,disintegrating 4 mg PO Q8H PRN PRN (Reason: Nausea) Qty: 10 0RF No Action tacrolimus 1 MG capsule 2.5 mg PO BID Patient Comments: Antirejection medication metoprolol tartrate 25 MG tablet 25 mg PO BID PRN (Reason: Blood Pressure Elevation) Rx Instructions: Take twice daily for BP> 160/100 ondansetron 4 mg tablet,disintegrating 4 mg PO Q8H PRN PRN (Reason: Nausea) Qty: 10 0RF oxycodone 5 mg capsule 5 mg PO Q6H PRN (Reason: pain) 3 Days Qty: 14 0RF venlafaxine 75 mg tablet 75 mg PO DAILY lisinopril 20 mg tablet 20 mg PO DAILY ondansetron 8 mg tablet,disintegrating 8 mg PO Q8H PRN (Reason: nausea and vomiting) Qty: 20 0RF oxycodone-acetaminophen 5-325 mg tablet 1 tab PO Q4H PRN (Reason: Pain) 4 Days Qty: 20 0RF Primary Care Provider: Zachary Tijerina Referrals: Zachary Tijerina MD [Primary Care Provider] - Activity Restrictions/Additional Instructions: Your white blood cell count is elevated secondary to your recent steroid use. I do believe the steroids did cause some belly pain. Take the PPI which is the omeprazole, this will decrease some acid and should help your abdominal pain. Take the nausea medicine as needed. Follow-up with your surgeon. Print Language: Mohawk Disposition Disposition: Home, Self Care Discharge Date/Time: 05/14/24 14:15
[2024-05-14 11:53] LABS: Absolute Lymphocyte Count 1.83 X10^3/uL (0.83-4.51); Absolute Neutrophil Count 16.5 X10^3/uL (2.0-7.7); Basophil# 0.06 X10^3/uL; Basophil% 0.3 % (0-1); Eosinophil# 0.15 X10^3/uL; Eosinophils% 0.8 % (0-5); Hematocrit 45.3 % (37-47); Hemoglobin 15.6 g/dL (12.0-15.0); Lymphocyte # 1.83 X10^3/ul (0.83-4.51); Lymphocyte % 9.6 % (19-41); Mean Corp Hgb Conc 34.4 g/dL (32-36); Mean Corpuscular Hgb 30.2 pg (27.0-32.0); Mean Corpuscular Volume 87.8 fL (81-99); Mean Platelet Vol. 9.9 fl (6.2-12.0); Monocyte% 2.1 % (0-10); NRBC Flagged by Analyzer 0 % (0-5); Neutrophil # 16.47 X10^3/uL (2.7-7.7); Neutrophil % 86.4 % (47-70); Platelet Count 233 K/mm3 (150-450); RBC Distribution Width SD 41.8 fl (35.1-43.9); Red Blood Count 5.16 M/mm3 (4.2-5.4); White Blood Count 19.1 K/mm3 (4.4-11.0)
[2024-05-14] MEDS: Ondansetron 4 MG/2 ML Vial IV (11:53)
[2024-05-14] MEDS: 0.9% Normal Saline (1000mL) 1,000 ML 999 ML IV (11:53)
[2024-05-14] MEDS: HYDROmorphone 1 MG/ML Syringe IV (11:54)
--- NOTE | 2024-05-14 11:58 | CT_ITS ---
STUDY: CT ABDOMEN AND PELVIS WITH CONTRAST REASON FOR EXAM: Female, 49 years old. epigastric pain recent abdominal surgery. RADIATION DOSAGE (If Supplied By Facility): CTDIvol = ( 14.56 ) mGy, DLP = ( 828.98 ) mGycm TECHNIQUE: Transaxial images were obtained from the dome of the diaphragm to the symphysis pubis without oral contrast. IV 100mL Isovue-300 was administered. Sagittal and coronal images were reconstructed. Individualized dose optimization techniques were used for this CT. COMPARISON: Comparison is made with prior study January 29, 2024. FINDINGS: Stable bilateral breast implants. Stable 1.6 cm well-defined nodule in the right middle lobe adherent to the right side of the heart. Stable 1.2 cm x 1.8 solid nodule in the posterior medius segment of the right lower lobe. Stable 1.2 cm lobulated nodule in the anterior aspect of the left lower lobe adjacent to the left cardiac border. The patient is status post cholecystectomy. Biliary stent catheter is seen. There is decreased attenuation of the liver consistent with steatosis. Normal gallbladder and extrahepatic biliary system. There is mild splenomegaly. Normal pancreas. Normal bilateral adrenal glands. Normal right kidney. Normal left kidney. Normal visualized stomach. Normal small intestine. Normal colon. The appendix is visualized and appears normal. Normal abdominal aorta. Normal inferior vena cava. Normal retroperitoneum. Normal urinary bladder. IUD is seen within the uterus. There is a 3.2 cm x 2.4 cm cyst in the left ovary. Normal abdominal wall. Normal osseous structures. CT/Abdomen/Pelvis W IV Cont ONLY IMPRESSION: Status post biliary stent placement. Status post cholecystectomy. Stable pulmonary nodules. Electronically Signed: Dakota Anaya MD at 12:49 EDT ,
[2024-05-14] MEDS: Famotidine 200 MG/20 ML MDV 20 MG in 0.9% Normal Saline (Pres. free 8 ML 300 MG IV (12:04)
[2024-05-14 12:06] LABS: AST(SGOT) 21 U/L (15-37); Alanine Aminotransfer ALT/SGPT 27 U/L (13-56); Albumin, Serum 3.8 g/dL (3.2-5.0); Alkaline Phosphatase 125 U/L (45-117); Anion Gap 7 (5-15); BUN 11 mg/dL (7-18); BUN/Creat Ratio 12.6 RATIO (10-20); Bilirubin, Direct 0.24 mg/dL (0.00-0.30); Calcium,Total 9.3 mg/dL (8.5-10.1); Chloride 101 mmol/L (98-107); Creatinine, Serum 0.87 mg/dL (0.55-1.02); EST Glomerular Filtration Rate 74 mL/min (>60); Est Glom Filt Rate - Afr Amer 90 mL/min (>60); Estimated Creatinine Clearance 80.51 ml/min; Globulin 4.6 g/dL (2.2-4.2); Glucose 127 mg/dL (74-106); Lipase 29 U/L (13-75); Potassium 4.3 mmol/L (3.5-5.1); Protein, Total 8.4 g/dL (6.4-8.2); Sodium Level 133 mmol/L (136-145)
[2024-05-14 13:06] LABS: Lactic Acid 1.6 mmol/L (0.4-1.9)
[2024-05-14 13:18] VITALS: BP 146/92; PULSE 93; RESP 16; O2SAT 98
[2024-05-14 14:09] LABS: Bacteria 0 SEEN /hpf (None Seen); Mucous, Urine 0 SEEN /hpf (<or=2+); Red Blood Cells-Urine 0 SEEN /hpf (0-5); White Blood Cells 0 SEEN /hpf (0-5)
[2024-05-14 14:21] LABS: Color, Urine Yellow (Yellow); Glucose, Dipstick Normal (Normal); Ketone-Dipstick Negative (Negative); Leukocyte Esterase-Dipstick Negative /ul (Negative); Nitrite-Dipstick Negative (Negative); Occult Blood-Urine Negative /ul (Negative); Protein-Dipstick Negative (Negative); Urine Bilirubin Dipstick Negative (Negative); Urine Clarity Clear (Clear); Urine Urobilinogen Normal (Normal)
[2024-05-14 14:26] LABS: Squamous Epithelial Cells - UA 0-5 SEEN /hpf (5-10)
== END 2024-05-14 14:15 | disposition home or self-care (01) ==
PROVIDERS: Nurse Practitioner; Emergency Provider Emergency Medicine; PCP Internal Medicine; Visit Provider Emergency Medicine
DX: K29.70 Gastritis, unspecified, without bleeding (principal); Z94.4 Liver transplant status; K52.9 Noninfective gastroenteritis and colitis, unspecified; I10 Essential (primary) hypertension; D72.829 Elevated white blood cell count, unspecified; Z79.899 Other long term (current) drug therapy; Z90.49 Acquired absence of other specified parts of digestive tract
CPT/HCPCS: 74177; 76705; 80048; 80076; 81001; 83605; 83690; 85025; 87040; 96374; 96375; 99283; J7030; Q9967; A4216; J2405; J3490

== ENCOUNTER 2024-11-12 23:00 | Inpatient (IN) | payer MEDICARE, SELFPAY ==
[2024-11-12 23:00] VITALS: BP 158/91; PULSE 95; RESP 20; TEMP 36.8; O2SAT 100; BMI 28.5
[2024-11-13] VITALS (12 sets, daily range): BP systolic 130–162; BP diastolic 71–91; PULSE 80–96; RESP 14–22; TEMP 36.8–36.9; O2SAT 95–100; BMI 28.0
--- NOTE | 2024-11-13 00:04 | EKG12_ITS ---
Test Reason : GENERAL ILLNESS Blood Pressure : */* mmHG Vent. Rate : 81 BPM Atrial Rate : 81 BPM P-R Int : 116 ms QRS Dur : 94 ms QT Int : 394 ms P-R-T Axes : 16 -24 46 degrees QTcB Int : 457 ms Normal sinus rhythm Minimal voltage criteria for LVH, may be normal variant ( [place] product ) Inferior infarct , age undetermined Abnormal ECG Confirmed by RACHEL SHIPMAN, JOHN ([id number]), photography editor JUDITH GUEVARA ([id number]) on 11/13/2024 8:26:36 AM Referred By: SIM Confirmed By: JOHN RAMOS MD
--- NOTE | 2024-11-13 00:24 | CT_ITS ---
PROCEDURE: ABDOMEN/PELVIS W IV CONT ONLY 11/13/2024 REASON FOR EXAM: ABD PAIN RUQ, HX OF STENTS FEELS THAT IT IS FAILIN TECHNIQUE: Abdomen and pelvis CT with intravenous contrast. Coronal and Sagittal reconstruction series were provided. CONTRAST: 99 cc Isovue 370 One or more dose reduction techniques were used (e.g., Automated exposure control, adjustment of the mA and/or kV according to patient size, use of iterative reconstruction technique. RADIATION DOSE SUMMARY: CTDlvol: 16.40 mGy DLP: 1335.32 mGycm COMPARISON: 05/14/2024 FINDINGS: Report of previous liver transplant again noted. A double-barrel biliary stent is in place. Air-fluid level within the upper common bile duct. There is a small amount of intrahepatic pneumobilia. No focal liver lesion identified. Varices at the epigastrium appear mildly more prominent. Varices at the splenic hilum again noted and along the greater curvature again noted. Splenic vein and portal vein appear to contain contrast as expected. Splenomegaly now measures 14.2 cm. Previously seen low-density focus within the head of the pancreas is not currently appreciated. The adrenal glands, right kidney and abdominal aorta appear within limits. Small fat containing epigastric ventral hernia again seen, not significantly changed. A 9 mm indeterminate exophytic lesion at the upper pole of the left kidney is not significantly changed and can not exclude solid lesion axial 50 and coronal 88. Intrauterine device appears centrally located. Bilateral fallopian tube implants again noted. Bilateral ovarian cysts/follicles. No free fluid seen. The bladder appears within limits. The appendix is not identified, no secondary signs. Moderate appearing colonic gas and stool. No bowel dilation or free air. Visualized osseous structures appear within limits. CT/Abdomen/Pelvis W IV Cont ONLY IMPRESSION: Report of previous liver transplant again noted. A double-barrel biliary stent is in place. Air-fluid level within the upper common bile duct. There is a small amount of intrahepatic pneumobilia now seen. No evidence of significant interval increase in size of the common bile duct or evidence of intrahepatic biliary ductal dilatio n. May correlate further with LFTs and alkaline phosphatase. No focal liver lesion identified. Varices at the epigastrium appear mildly more prominent. Varices at the splenic hilum again noted and along the greater curvature again noted. Splenic vein and portal vein appear to contain contrast as expecte d. Splenomegaly now measures 14.2 cm. Previously seen low-density focus within the head of the pancreas is not curren tly appreciated. A 9 mm indeterminate exophytic lesion at the upper pole of the left kidney is n ot significantly changed and can not exclude solid lesion axial 50 and coronal 88. Bilateral ovarian cysts/follicles. No free fluid seen. Reading Location: [id number]
--- NOTE | 2024-11-13 00:24 | CT_ITS ---
EXAM: CTA CHEST W/WO CONTRAST 11/13/2024 CLINICAL HISTORY: Shortness of breath COMPARISON: 02/27/2023 TECHNIQUE: CTA of the chest with coronal and sagittal and MIP reformatted images with contrast FINDINGS: No evidence of filling defect to suggest pulmonary embolism. Thoracic aorta and visualized great vessels appear within limits. No pericardial or pleural effusion. The central airways appear patent. Bilateral pulmonary lesions have increased in size since 2022 largest on the right within the right lower lobe measuring currently 2.2 cm axial 148, previously 1.8 cm and largest on the left within the lingula again lobulated currently 1.6 cm, previously 1.2 cm. The lungs otherwise appear clear without focal consolidation, evidence of pulmonary edema or pneumothorax. No adenopathy. 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 CT/CTA Chest W/WO Contrast IMPRESSION: No evidence of filling defect to suggest pulmonary embolism. Bilateral noncalcified pulmonary nodules around 10 in number have all increased in size since 2022 as above, correlate with history. Reading Location: [id number]
[2024-11-13 00:33] LABS: Bacteria 0 SEEN /hpf (None Seen); Mucous, Urine 0 SEEN /hpf (<or=2+); White Blood Cells 0 SEEN /hpf (0-5)
[2024-11-13 00:36] LABS: Color, Urine Yellow (Yellow); Glucose, Dipstick Normal (Normal); Ketone-Dipstick Negative (Negative); Leukocyte Esterase-Dipstick Negative /ul (Negative); Nitrite-Dipstick Negative (Negative); Occult Blood-Urine 10 /ul (Negative); Protein-Dipstick 15 mg/dl (Negative); Specific Gravity, Urine 1.015 (1.002-1.030); Urine Clarity Clear (Clear); Urine Urobilinogen 8 mg/dl (Normal)
[2024-11-13 00:42] LABS: Red Blood Cells-Urine 0-5 SEEN /hpf (0-5); Squamous Epithelial Cells - UA 0-5 SEEN /hpf (5-10); Urine Bilirubin Dipstick 1 mg/dL (Negative)
[2024-11-13 00:56] LABS: Absolute Lymphocyte Count 0.45 X10^3/uL (0.83-4.51); Absolute Neutrophil Count 7.9 X10^3/uL (2.0-7.7); Basophil# 0.01 X10^3/uL; Basophil% 0.1 % (0-1); Eosinophil# 0.06 X10^3/uL; Eosinophils% 0.7 % (0-5); Hematocrit 34.6 % (37-47); Hemoglobin 11.6 g/dL (12.0-15.0); Lymphocyte # 0.45 X10^3/ul (0.83-4.51); Mean Corp Hgb Conc 33.5 g/dL (32-36); Mean Corpuscular Hgb 29.1 pg (27.0-32.0); Mean Corpuscular Volume 86.7 fL (81-99); Mean Platelet Vol. 11.9 fl (6.2-12.0); Monocyte# 0.42 X10^3/uL; Monocyte% 4.7 % (0-10); NRBC Flagged by Analyzer 0 % (0-5); Neutrophil # 7.93 X10^3/uL (2.7-7.7); Neutrophil % 88.9 % (47-70); POSITIVE COUNT YES; POSITIVE DIFFERENTIAL YES; Platelet Count 94 K/mm3 (150-450); Red Blood Count 3.99 M/mm3 (4.2-5.4); White Blood Count 8.9 K/mm3 (4.4-11.0)
[2024-11-13 01:02] LABS: International Normalized Ratio 1.1; Prothrombin Time (Protime)PT. 14.3 SECONDS (11.7-14.9)
[2024-11-13 01:03] LABS: Partial Thromboplast Time 20.7 Seconds (24.1-36.2)
[2024-11-13 01:08] LABS: Differential Indicated SCAN CRITERIA MET
[2024-11-13 01:27] LABS: Differential Comment SEECOMMENT; Platelet Estimate MOD DEC (ADEQ); Red Cell Morphology NORM C+C NORMAL (NORM C&C)
[2024-11-13 01:37] LABS: ALB/GLOB Ratio 1.3 RATIO (0.9-2.4); AST(SGOT) 141 U/L (<=31); Alanine Aminotransfer ALT/SGPT 116 U/L (<=34); Albumin, Serum 3.6 g/dL (3.5-5.0); Alkaline Phosphatase 337 U/L (35-104); Anion Gap 17 (5-15); BUN 13 mg/dL (4-19); BUN/Creat Ratio 15.8 RATIO (10-20); Calcium,Total 7.9 mg/dL (7.6-11.0); Carbon Dioxide 16.1 mmol/L (21.0-32.0); Chloride 101 mmol/L (98-108); EST Glomerular Filtration Rate 91 (>60); Estimated Creatinine Clearance 89.64 ml/min (50-250); Globulin 2.9 g/dL (2.2-4.2); Glucose 118 mg/dL (70-99); Potassium 3.7 mmol/L (3.3-5.1); Protein, Total 6.5 g/dL (5.9-8.4); Sodium Level 134 mmol/L (133-145); Total Bilirubin 3.42 mg/dL (0.00-1.30)
[2024-11-13 02:01] LABS: Troponin T High Sensitivity < 6 ng/L (<=14)
[2024-11-13] MEDS: 0.9% Normal Saline (1000mL) 1,000 ML 999 ML IV (02:10)
[2024-11-13 04:35] LABS: Lactic Acid < 1.0 mmol/L (0.0-2.0)
[2024-11-13] MEDS: Ondansetron 4 MG/2 ML Vial IV (04:45)
--- NOTE | 2024-11-13 06:00 | EX.ED.DYSGE1 ---
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 States that she follows with [facility] and notes that in November she is supposed to have her stents replaced. She states that normally they do 2 plastic stents however this past time they did 1 plastic and 1 mesh and she feels that the mesh 1 is failing as she had problems with this in the past. Patient does also complain of some pain with deep inspiration. [facility] Medical History Stenosis of common bile duct Carcinoid tumor Diarrhea History of migraine Pulmonary emboli Home Medications ?Medication ?Instructions ?Recorded ?Last Taken ?Type tacrolimus 1 mg capsule, 2 mg PO BID anti rejection 10/28/13 08/07/18 06:30 History immediate-release metoprolol tartrate 25 mg tablet 25 mg PO BID PRN Blood Pressure 08/07/18 08/07/18 06:30 History Elevation lisinopril 20 mg tablet 20 mg PO DAILY 12/27/23 Unknown History omeprazole 40 mg capsule,delayed 40 mg PO DAILY #30 caps 05/14/24 Unknown Rx release venlafaxine 150 mg 150 mg PO DAILY 11/13/24 Unknown History capsule,extended release 24 hr Allergy/AdvReac Type Severity Reaction Status Date / Time morphine Allergy red line Verified 11/12/24 23:00 up her arm vancomycin Allergy red man Verified 11/12/24 23:00 syndrome Surgical History History of appendectomy History of cholecystectomy History of mastectomy History of liver transplant Social History Smoking Status: Never smoker ROS ROS ED ROS Narrative Constitutional: Complains of fever and chills denies headache Eyes: Denies change in vision double vision blurry vision Cardiovascular: Denies chest pain Respiratory: Denies coughing wheezing shortness of breath Abdomen: Complains of nausea denies abdominal pain : Denies urinary symptoms Neurological: Denies numbness, weakness, tingling Musculoskeletal: Denies back pain Skin: Denies rashes or lesions EXAM Physical Exam Narrative Exam Narrative: General: Patient lying in bed rest comfortably not appear to be acute distress Head: Atraumatic, normocephalic Eyes: PERRL bilaterally, EOMI bilateral, no conjunctival injection noted Neck: Soft, supple, trachea midline Cardiovascular: Regular rate and rhythm no murmurs gallops rubs noted Respiratory: Clear to auscultation bilaterally Abdomen: Soft, nondistended, no tenderness to palpation Extremities: +5/5 strength noted in the bilateral upper and lower extremity, radial pulse +2/4 in the bilateral extremities Neurological: Patient following commands knew that she was at [facility] years 2024 Skin: Warm, dry, intact Const Vital Signs: 11/12/24 23:00 11/13/24 00:02 11/13/24 01:00 Temperature 98.2 F Temperature Source Oral Pulse Rate 95 87 Respiratory Rate 20 H 14 Respiratory Effort Normal Non-Labored Respiratory Pattern Normal Blood Pressure 158/91 H Blood Pressure Mean 113 Pulse Ox 100 97 Oxygen Delivery Method Room Air Room Air 11/13/24 02:15 11/13/24 03:07 11/13/24 05:00 Temperature Temperature Source Pulse Rate 80 95 Respiratory Rate 18 17 Respiratory Effort Respiratory Pattern Blood Pressure 147/81 H 162/91 H Blood Pressure Mean 103 114 Pulse Ox 100 97 Oxygen Delivery Method Room Air Room Air Room Air MDM MDM MDM Narrative Medical decision making narrative: Patient is a 49-year-old female who presented to the Emergency Department with concern of failing bile duct stones. Other differential diagnose includes Melamin to fill bile duct stone, viral gastroenteritis, PE, pneumonia, pneumothorax. Once workup is obtained reviewed she will be reevaluated. Patient be given IV fluids. Patient CBC was reviewed and showed a white blood count 8.9, hemoglobin stable 11.6, platelet count was noted to be 94. Patient INR 1.1, PT of 14.3. Patient sodium normal 134, potassium normal 3.7, creatinine was 0.80. Patient lactic acid was less than 1, total bilirubin elevated at 3.42 with AST and ALT of 141 and 116 respectively. Patient's alk phosphatase elevated to 337. Patient's urinalysis reviewed and showed no evidence of infection. Patient's CTA of her chest reviewed showed no evidence of pulmonary embolism. Bilateral noncalcified pulmonary nodules round tendon number have all increased in size since 2022 correlation with history recommended. Patient CT ab pelvis with IV contrast showed report of previous liver transplant again noted. Double-barreled biliary stent is in place air-fluid level within the upper common bile duct. There is small amount of intrahepatic pneumobilia now noted. No evidence of significant interval increase in size of common bile duct or evidence of intrahepatic biliary ductal dilation. No focal liver lesion identified. She has varices at the epigastrium. Mildly more prominent varices at the splenic hilum again noted. Splenic vein and portal vein appear to contain contrast as expected. A 9 mm indeterminate exophytic lytic lesion at the upper pole of the kidney not significantly changed and cannot exclude solid lesion bilateral ovarian cysts noted no free fluid seen. I reached out to [facility] for transfer. After several hours they returned the page and had discussion with them about transfer the patient. Discussed with Dr. Redmond who accept patient for admission. Patient was notified she is agreeable to plan all question concerns answered. Lab Data Labs: Laboratory Results - last 24 hr 11/13/24 11/13/24 00:20 00:44 WBC 8.9 RBC 3.99 L Hgb 11.6 L Hct 34.6 L MCV 86.7 MCH 29.1 MCHC 33.5 RDW Std Deviation 44.0 H RDW Coeff of Josy 14.0 Plt Count 94 L MPV 11.9 Immature Gran % (Auto) 0.600 Neut % (Auto) 88.9 H Lymph % (Auto) 5.0 L Crisp % (Auto) 4.7 Eos % (Auto) 0.7 Baso % (Auto) 0.1 Absolute Neuts (auto) 7.9 H Absolute Lymphs (auto) 0.45 L Nucleated RBC % 0 Differential Comment SEECOMMENT Platelet Estimate MOD DEC RBC Morphology NORM C+C PT 14.3 INR 1.1 APTT 20.7 L Sodium 134 Potassium 3.7 Chloride 101 Carbon Dioxide 16.1 L Anion Gap 17 H BUN 13 Creatinine 0.80 Estim Creat Clear Calc 89.64 Est GFR (MDRD) Non-Af 91 BUN/Creatinine Ratio 15.8 Glucose 118 H Lactic Acid < 1.0 Calcium 7.9 Total Bilirubin 3.42 H AST 141 H ALT 116 H Alkaline Phosphatase 337 H Troponin T High Sens < 6 Total Protein 6.5 Albumin 3.6 Globulin 2.9 Albumin/Globulin Ratio 1.3 Urine Color Yellow Urine Clarity Clear Urine pH 6.0 Ur Specific Sawyer 1.015 Urine Protein 15 H Urine Glucose (UA) Normal Urine Ketones Negative Urine Occult Blood 10 H Urine Nitrite Negative Urine Bilirubin 1 H Urine Urobilinogen 8 H Ur Leukocyte Esterase Negative Urine RBC 0-5 SEEN Urine WBC 0 SEEN Ur Squamous Epith Cells 0-5 SEEN Urine Bacteria 0 SEEN Urine Mucus 0 SEEN Radiography Diagnostic Testing: Clinical Impression(s) from Imaging Studies Abdomen/Pelvis CT 11/13/24 00:24 IMPRESSION: Report of previous liver transplant again noted. A double-barrel biliary stent is in place. Air-fluid level within the upper common bile duct. There is a small amount of intrahepatic pneumobilia now seen. No evidence of significant interval increase in size of the common bile duct or evidence of intrahepatic biliary ductal dilation. May correlate further with LFTs and alkaline phosphatase. No focal liver lesion identified. Varices at the epigastrium appear mildly more prominent. Varices at the splenic hilum again noted and along the greater curvature again noted. Splenic vein and portal vein appear to contain contrast as expected. Splenomegaly now measures 14.2 cm. Previously seen low-density focus within the head of the pancreas is not currently appreciated. A 9 mm indeterminate exophytic lesion at the upper pole of the left kidney is not significantly changed and can not exclude solid lesion axial 50 and coronal 88. Bilateral ovarian cysts/follicles. No free fluid seen. Reading Location: [facility] Chest CTA 11/13/24 00:24 IMPRESSION: No evidence of filling defect to suggest pulmonary embolism. Bilateral noncalcified pulmonary nodules around 10 in number have all increased in size since 2022 as above, correlate with history. Reading Location: [facility] Discharge Plan Triage Chief Complaint: General Illness ED Provider: David Ruvalcaba Dx/Rx/DC Orders Clinical Impression: Stenosis of common bile duct, Carcinoid tumor, Status post liver transplant Prescriptions: No Action tacrolimus 1 MG capsule 2 mg PO BID Patient Comments: Antirejection medication metoprolol tartrate 25 MG tablet 25 mg PO BID PRN (Reason: Blood Pressure Elevation) Rx Instructions: Take twice daily for BP> 160/100 omeprazole 40 mg capsule,delayed release(DR/EC) 40 mg PO DAILY Qty: 30 1RF lisinopril 20 mg tablet 20 mg PO DAILY venlafaxine 150 mg capsule,extended release 24hr 150 mg PO DAILY Primary Care Provider: Zachary Tijerina Referrals: Zachary Tijerina MD [Primary Care Provider] - Print Language: Hebrew Disposition Disposition: DC/Tx to Another Type of HCF
--- NOTE | 2024-11-13 08:29 | PCA ---
CALLED [facility] TRANSFER LINE FOR A BED UPDATE AT 08. [facility] IS WAITING TO SEE HOW MANY DCS THEY HAVE AND HAS PATIENT LISTED HIGH PRIORITY. THEY SAID TO CALL BACK AROUND 3PM OR 4 PM THEY WOULD HAVE A BETTER IDEA OR ROOM STATUS. SHE WILL DEFIANTLY RECEIVE A BED THERE THIS WEEKEND.
[2024-11-13 11:15] LABS: ALB/GLOB Ratio 1.1 RATIO (0.9-2.4); AST(SGOT) 110 U/L (<=31); Alanine Aminotransfer ALT/SGPT 113 U/L (<=34); Albumin, Serum 3.7 g/dL (3.5-5.0); Alkaline Phosphatase 330 U/L (35-104); Anion Gap 12 (5-15); BUN 8 mg/dL (4-19); BUN/Creat Ratio 10.5 RATIO (10-20); Calcium,Total 8.1 mg/dL (7.6-11.0); Carbon Dioxide 22.3 mmol/L (21.0-32.0); Chloride 101 mmol/L (98-108); Creatinine, Serum 0.78 mg/dL (0.70-1.20); EST Glomerular Filtration Rate 94 (>60); Estimated Creatinine Clearance 91.94 ml/min (50-250); Globulin 3.5 g/dL (2.2-4.2); Glucose 133 mg/dL (70-99); Potassium 3.8 mmol/L (3.3-5.1); Protein, Total 7.2 g/dL (5.9-8.4); Sodium Level 135 mmol/L (133-145); Total Bilirubin 4.87 mg/dL (0.00-1.30)
[2024-11-13 11:57] LABS: Troponin T High Sens 2 HR < 6 ng/L (<=14)
--- NOTE | 2024-11-13 15:28 | CM.ED ---
Social work Reason for referral: patient transfer to higher LOC Referral source: case find This SW identified patient's pending transfer to higher LOC and possible need for support. This SW entered patient's room, introducing self and role at [facility]. Patient accepted SW visit and asked for update on patient's transfer to [facility]. SW shared that patient should know more information around 1600 when [facility] was calling [facility] for an update. Patient stated knowing patient may have to be admitted prior to transfer and SW confirmed. Patient shared details regarding patient's medical history and patient stated having to keep a positive attitude in order to get through it all. Patient talked about patient's 19 year old son, 26 year old daughter, and grandchildren. Patient engaged in a variety of other conversation topics and thanked SW for time spent supporting patient. Active listening and empathic support utilized. Yesica Roldan, INSULATION ESTIMATOR, [employer]
--- NOTE | 2024-11-13 18:39 | PCM.HP.STD ---
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 She follows with [facility] in November she is supposed to have her stents replaced, they usually do 2 plastic stents but this last time they did 1 plastic and 1 mesh and she is concerned that the mesh stent is failing. In the ED patient vitally stable, total bili 3.42 with AST 141, ALT 116, alk phos 337, repeated these labs showed increase of total bili to 4.87. Patient had CT in the ED which demonstrated increased size of bilateral noncalcified pulmonary nodules and a CT of the abdomen with previous liver transplant noted, double barrel biliary stent in place with an air-fluid level in the upper common bile duct and small amount of intrahepatic pneumobilia. Varices in the epigastrium mildly more prominent and splenomegaly present. Additionally 9 mm indeterminate exophytic lesion in the upper pole of the left kidney which is not significantly changed. Given the above [place] contacted for transfer and patient accepted. Given prolonged wait time in the ED hospitalist contacted for admission. Patient evaluated at bedside. Patient reports she is feeling more itchy, does chronically have some right upper quadrant pain that she says she noticed this morning also reports she has been having intermittent low-grade temp at home with a maximum temp of 100.7. Does also have frontal headache, had been nauseous but not presently nauseous, no other new or acute complaints COUNTS INCLUDE 234 BEDS AT THE [facility] Medical History (Updated 11/13/24 @ 16:42 by Ana Perez) Anxiety Carcinoid tumor Depression Diarrhea DVT (deep venous thrombosis) GERD (gastroesophageal reflux disease) History of migraine Hypertension Migraines Non-smoker Pulmonary emboli Pulmonary embolism Stenosis of common bile duct Home Medications ?Medication ?Instructions ?Recorded ?Last Taken ?Type tacrolimus 1 mg capsule, 2 mg PO BID anti rejection 10/28/13 08/07/18 06:30 History immediate-release metoprolol tartrate 25 mg tablet 25 mg PO BID PRN Blood Pressure 08/07/18 08/07/18 06:30 History Elevation lisinopril 20 mg tablet 20 mg PO DAILY 12/27/23 Unknown History omeprazole 40 mg capsule,delayed 40 mg PO DAILY #30 caps 05/14/24 Unknown Rx release venlafaxine 150 mg 150 mg PO DAILY 11/13/24 Unknown History capsule,extended release 24 hr Allergy/AdvReac Type Severity Reaction Status Date / Time morphine Allergy red line Verified 11/12/24 23:00 up her arm vancomycin Allergy red man Verified 11/12/24 23:00 syndrome Surgical History (Updated 11/13/24 @ 06:[address] David Ruvalcaba DO) History of appendectomy History of cholecystectomy History of liver transplant History of mastectomy Social History Smoking Status: Never smoker ROS ROS Narrative General: Reported low-grade fever at home HENT: Frontal headache, denies stuffy nose, denies sore throat EYES: Denies changes in vision Resp: Denies cough, denies shortness of breath Cardiac: Denies chest pain GI: Chronic abdominal pain, more noticeable now per patient, denies changes in bowel, intermittent nausea : Denies changes in urination Extremity: Denies swelling MSK: Denies weakness Neuro: Denies any numbness/tingling Heme: Denies any bleeding or bruising Skin: Denies rashes, eyes itching Psychiatric: No complaints voiced Vital Signs Vital Signs Vital Signs: 11/12/24 23:00 11/13/24 00:02 11/13/24 01:00 Temperature 98.2 F Temperature Source Oral Pulse Rate 95 87 Respiratory Rate 20 H 14 Respiratory Effort Normal Non-Labored Respiratory Pattern Normal Blood Pressure 158/91 H Blood Pressure Mean 113 Pulse Ox 100 97 Oxygen Delivery Method Room Air Room Air 11/13/24 02:15 11/13/24 03:07 11/13/24 05:00 Temperature Temperature Source Pulse Rate 80 95 Respiratory Rate 18 17 Respiratory Effort Respiratory Pattern Blood Pressure 147/81 H 162/91 H Blood Pressure Mean 103 114 Pulse Ox 100 97 Oxygen Delivery Method Room Air Room Air Room Air 11/13/24 07:00 11/13/24 09:00 11/13/24 11:00 Temperature Temperature Source Pulse Rate 87 87 87 Respiratory Rate 22 H 18 18 Respiratory Effort Respiratory Pattern Blood Pressure 145/71 H 131/83 H 144/91 H Blood Pressure Mean 95 99 108 Pulse Ox 95 95 98 Oxygen Delivery Method Room Air Room Air Room Air 11/13/24 12:18 11/13/24 13:00 11/13/24 15:00 Temperature 98.3 F Temperature Source Pulse Rate 84 92 96 Respiratory Rate 22 H 14 16 Respiratory Effort Respiratory Pattern Blood Pressure 157/89 H 156/82 H 143/73 H Blood Pressure Mean 111 106 96 Pulse Ox 98 99 96 Oxygen Delivery Method Room Air Room Air 11/13/24 17:00 Temperature Temperature Source Pulse Rate 94 Respiratory Rate 17 Respiratory Effort Respiratory Pattern Blood Pressure 150/80 H Blood Pressure Mean 103 Pulse Ox 97 Oxygen Delivery Method Room Air Weight Weight: 77.8 kg Body Mass Index (BMI) 28.5 Physical Exam Narrative General: Alert, oriented, no apparent distress HEENT: Atraumatic, normocephalic Eyes: Anicteric, normal conjunctiva, extraocular movements grossly intact Neck: Supple Respiratory: Clear to auscultation bilaterally, normal respiratory effort Cardiovascular: Regular rate and rhythm GI: Soft, no significant tenderness without rebound, guarding, rigidity Extremities: No edema Musculoskeletal: Moving all extremities Neuro: No overt focal neurological deficits Skin: No rashes appreciated Psych: Cooperative Results Lab / Micro Data 11/13/24 00:44 11/13/24 10:37 Labs: Laboratory Results - last 24 hr 11/13/24 00:20: Urine Color Yellow, Urine Clarity Clear, Urine pH 6.0, Ur Specific Slinger 1.015, Urine Protein 15 H, Urine Glucose (UA) Normal, Urine Ketones Negative, Urine Occult Blood 10 H, Urine Nitrite Negative, Urine Bilirubin 1 H, Urine Urobilinogen 8 H, Ur Leukocyte Esterase Negative, Urine RBC 0-5 SEEN, Urine WBC 0 SEEN, Ur Squamous Epith Cells 0-5 SEEN, Urine Bacteria 0 SEEN, Urine Mucus 0 SEEN 11/13/24 00:44: WBC 8.9, RBC 3.99 L, Hgb 11.6 L, Hct 34.6 L, MCV 86.7, MCH 29.1, MCHC 33.5, RDW Std Deviation 44.0 H, RDW Coeff of Josy 14.0, Plt Count 94 L, MPV 11.9, Immature Gran % (Auto) 0.600, Neut % (Auto) 88.9 H, Lymph % (Auto) 5.0 L, Warrick % (Auto) 4.7, Eos % (Auto) 0.7, Baso % (Auto) 0.1, Absolute Neuts (auto) 7.9 H, Absolute Lymphs (auto) 0.45 L, Nucleated RBC % 0, Differential Comment SEECOMMENT, Platelet Estimate MOD DEC, RBC Morphology NORM C+C, PT 14.3, INR 1.1, APTT 20.7 L, Sodium 134, Potassium 3.7, Chloride 101, Carbon Dioxide 16.1 L, Anion Gap 17 H, BUN 13, Creatinine 0.80, Estim Creat Clear Calc 89.64, Est GFR (MDRD) Non-Af 91, BUN/Creatinine Ratio 15.8, Glucose 118 H, Lactic Acid < 1.0, Calcium 7.9, Total Bilirubin 3.42 H, AST 141 H, ALT 116 H, Alkaline Phosphatase 337 H, Troponin T High Sens < 6, Total Protein 6.5, Albumin 3.6, Globulin 2.9, Albumin/Globulin Ratio 1.3 11/13/24 10:37: Sodium 135, Potassium 3.8, Chloride 101, Carbon Dioxide 22.3, Anion Gap 12, BUN 8, Creatinine 0.78, Estim Creat Clear Calc 91.94, Est GFR (MDRD) Non-Af 94, BUN/Creatinine Ratio 10.5, Glucose 133 H, Calcium 8.1, Total Bilirubin 4.87 H, AST 110 H, ALT 113 H, Alkaline Phosphatase 330 H, Troponin T Hi Sens 2 Hr < 6, Total Protein 7.2, Albumin 3.7, Globulin 3.5, Albumin/Globulin Ratio 1.1 Micro: Microbiology 11/13/24 00:20 Mucosa - Nose SARS-CoV-2, Influenza & RSV (PCR) - Final Imaging Radiology Impression Abdomen/Pelvis CT 11/13/24 00:24 IMPRESSION: Report of previous liver transplant again noted. A double-barrel biliary stent is in place. Air-fluid level within the upper common bile duct. There is a small amount of intrahepatic pneumobilia now seen. No evidence of significant interval increase in size of the common bile duct or evidence of intrahepatic biliary ductal dilation. May correlate further with LFTs and alkaline phosphatase. No focal liver lesion identified. Varices at the epigastrium appear mildly more prominent. Varices at the splenic hilum again noted and along the greater curvature again noted. Splenic vein and portal vein appear to contain contrast as expected. Splenomegaly now measures 14.2 cm. Previously seen low-density focus within the head of the pancreas is not currently appreciated. A 9 mm indeterminate exophytic lesion at the upper pole of the left kidney is not significantly changed and can not exclude solid lesion axial 50 and coronal 88. Bilateral ovarian cysts/follicles. No free fluid seen. Reading Location: [facility] Chest CTA 11/13/24 00:24 IMPRESSION: No evidence of filling defect to suggest pulmonary embolism. Bilateral noncalcified pulmonary nodules around 10 in number have all increased in size since 2022 as above, correlate with history. Reading Location: [facility] Assessment & Plan Assessment/Plan (1) Stenosis of common bile duct: (2) Status post liver transplant: (3) Carcinoid tumor: PLAN: Plan # Concern for failing common bile duct stent in the setting of carcinoid tumor -Patient has a history of carcinoid tumors with biliary stents -CT did show biliary stent with air-fluid level and upper common bile duct and small amount of intrahepatic pneumobilia - total bili 3.42 with AST 141, ALT 116, alk phos 337, repeated these labs showed increase of total bili to 4.87 -Awaiting transfer to [facility] -Patient does report low-grade temp at home, also endorses that she usually is on antibiotics when pending stent exchange, given the CT findings with her right upper quadrant discomfort and report of low-grade fevers do think it is reasonable to start patient on Zosyn at this time while awaiting transfer # Status post liver transplant -Continue tacrolimus -Will check tacrolimus level -Patient reports 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
[2024-11-13] MEDS: Tacrolimus Anhydrous 1 MG Capsule 2 MG PO (21:17)
[2024-11-13] MEDS: Lisinopril 20 MG Tablet PO (21:18)
[2024-11-13] MEDS: oxyCODONE 5 MG Tablet 2.5 MG PO (21:28)
[2024-11-13] MEDS: Piperacil/Tazobactam 4.5 GM in 0.9% Normal Saline (100mL MB+) 100 ML IV (21:48)
[2024-11-13] MEDS: DiphenhydrAMINE 50 MG/ML Syringe 25 MG IV (23:29)
[2024-11-14 02:00] VITALS: BP 128/75; PULSE 82; RESP 16; TEMP 36.9; O2SAT 96
[2024-11-14] MEDS: DiphenhydrAMINE 50 MG/ML Syringe 25 MG IV ×3 (04:16→16:30)
[2024-11-14] MEDS: Piperacil/Tazobactam 3.375 GM in 0.9% Normal Saline (50mL MB+) 50 ML IV (05:32)
[2024-11-14 07:18] LABS: Absolute Lymphocyte Count 0.55 X10^3/uL (0.83-4.51); Absolute Neutrophil Count 3.2 X10^3/uL (2.0-7.7); Basophil# 0.01 X10^3/uL; Basophil% 0.2 % (0-1); Eosinophil# 0.08 X10^3/uL; Eosinophils% 1.9 % (0-5); Hemoglobin 10.8 g/dL (12.0-15.0); Lymphocyte # 0.55 X10^3/ul (0.83-4.51); Lymphocyte % 13.3 % (19-41); Mean Corp Hgb Conc 31.8 g/dL (32-36); Mean Corpuscular Hgb 28.7 pg (27.0-32.0); Mean Corpuscular Volume 90.4 fL (81-99); Mean Platelet Vol. 10.9 fl (6.2-12.0); Monocyte# 0.29 X10^3/uL; NRBC Flagged by Analyzer 0 % (0-5); Neutrophil % 77.1 % (47-70); POSITIVE DIFFERENTIAL YES; Platelet Count 105 K/mm3 (150-450); RBC Distribution Width CV 14.5 % (11.6-14.6); Red Blood Count 3.76 M/mm3 (4.2-5.4); White Blood Count 4.2 K/mm3 (4.4-11.0)
[2024-11-14 08:10] VITALS: BP 142/86; PULSE 90; RESP 18; TEMP 36.9; O2SAT 97
[2024-11-14 08:11] VITALS: PULSE 60
[2024-11-14 08:14] LABS: AST(SGOT) 100 U/L (<=31); Alanine Aminotransfer ALT/SGPT 103 U/L (<=34); Albumin, Serum 3.5 g/dL (3.5-5.0); Alkaline Phosphatase 312 U/L (35-104); Anion Gap 12 (5-15); BUN 10 mg/dL (4-19); BUN/Creat Ratio 11.3 RATIO (10-20); Calcium,Total 8.4 mg/dL (7.6-11.0); Carbon Dioxide 22.5 mmol/L (21.0-32.0); Chloride 102 mmol/L (98-108); Creatinine, Serum 0.91 mg/dL (0.70-1.20); EST Glomerular Filtration Rate 78 (>60); Estimated Creatinine Clearance 78.15 ml/min (50-250); Globulin 3.5 g/dL (2.2-4.2); Glucose 128 mg/dL (70-99); Potassium 3.4 mmol/L (3.3-5.1); Sodium Level 137 mmol/L (133-145); Total Bilirubin 4.56 mg/dL (0.00-1.30)
--- NOTE | 2024-11-14 08:31 | PCA ---
call placed to [facility] still no bed at this time
[2024-11-14] MEDS: Pantoprazole Sodium 40 MG Tablet PO (08:46)
[2024-11-14] MEDS: 0.9% Saline Lock 10 ML Syringe IV ×3 (08:48→16:38)
[2024-11-14] MEDS: Lisinopril 20 MG Tablet PO (08:49)
[2024-11-14] MEDS: Venlafaxine XR 150 MG Capsule PO (08:49)
[2024-11-14] MEDS: Tacrolimus Anhydrous 1 MG Capsule 2 MG PO (08:49)
[2024-11-14] MEDS: Meropenem 2 GM in 0.9% Normal Saline (100mL Bag) 100 ML IV ×2 (10:49→14:34)
[2024-11-14] MEDS: Ketorolac 15 MG/ML Vial IM (12:04)
[2024-11-14 14:10] LABS: International Normalized Ratio 1.2; Prothrombin Time (Protime)PT. 15.2 SECONDS (11.7-14.9)
[2024-11-14 14:11] VITALS: BP 139/80; PULSE 80; PULSE 91; RESP 18; TEMP 37; O2SAT 97
[2024-11-14] MEDS: 0.9% Normal Saline (100mL Bag) 100 ML 15 ML IV (14:34)
--- NOTE | 2024-11-14 15:40 | DS.PCM_ITS ---
Providers Date of Admission: 11/13/24 Date of Discharge: 11/14/24 Primary Care Physician: Dr. Zachary Tijerina MD Reason For Visit: CBD STENT MALFUNCTION Diagnosis Discharge Diagnosis (1) Stenosis of common bile duct: Status: Acute Code(s): K83.1 - Obstruction of bile duct (2) Status post liver transplant: Status: Acute Code(s): Z94.4 - Liver transplant status (3) Carcinoid tumor: Status: Acute Code(s): D3A.00 - Benign carcinoid tumor of unspecified site Medications at Discharge Home Medications tacrolimus 1 mg capsule, immediate-release 2 mg PO BID anti rejection 10/28/13 metoprolol tartrate 25 mg tablet 25 mg PO BID PRN Blood Pressure Elevation 08/07/18 lisinopril 20 mg tablet 20 mg PO DAILY 12/27/23 omeprazole 40 mg capsule,delayed release 40 mg PO DAILY #30 caps 05/14/24 venlafaxine 150 mg capsule,extended release 24 hr 150 mg PO DAILY 11/13/24 Hospital Course Operations None Procedures - (Abdomen/CTA chest) Summary of Care Provided Minutes Spent on Discharge: 30 Hospital Course: Patient is a 49-year-old white female with a history of carcinoid tumor and bile duct stents with previous liver transplant who presented to the emergency department [facility] on 11/13/2024 with low-grade temps, right upper quadrant pain, and itching. She follows up in clinic and in November she was supposed to have her stents replaced. They usually do 2 plastic stents but the last time they only did 1 plastic stent and 1 mesh stent. She was concerned that the mesh stent was failing. Patient reported she has been more itchy lately as she had a low-grade temp on the morning of presentation with a Tmax of 100.7. She also complained of a frontal headache and some nausea at home but was not nauseous on presentation. Vital signs on presentation showed temperature of 98.2, heart rate 95, respiratory rate 20, blood pressure was 158/91 and pulse ox 100% on room air. CBC showed normal white count, mild anemia with hemoglobin 11.6, thrombocytopenia with a platelet count of 94,000 and she had a significant left shift with an 80.9% neutrophilia. Coags are unremarkable. Chemistry panel initially showed a bicarb of 16 and anion gap of 17 but repeat labs showed a bicarb of 22.3 and anion gap of 12. Glucose was slightly elevated 118. Lactic acid was normal. Initial bilirubin was 3.42 with a repeat of 4.87 emergency department. Alk phos was 337, ALT was 116, AST was 141. CTA of the chest was unremarkable for acute dissection or PE but did showed bilateral noncalcified pulmonary nodules that had increased in size since 2022. CT of the abdomen pelvis showed previous liver transplant with double barrel biliary stents in place and air-fluid levels in the upper common bile duct with small amount of intrahepatic pneumobilia and no evidence of increased size in the common bile duct or intrahepatic duct dilation. No focal liver lesion was identified, varices were noted in the epigastrium at the splenic hilum and the greater curvature of the stomach. Splenomegaly was noted. A 9 mm indeterminate exophytic lesion was noted in the upper pole of the left kidney and bilateral ovarian cyst/follicles were noted with no fluid. Given her history and current issues, transfer was initiated to [facility] by the emergency department physician however a bed was not available and she was temporarily admitted. She was started on broad-spectrum antibiotics initially with Zosyn however she developed a rash so we transitioned her from Zosyn to meropenem. She tolerated this better. She had less itching. She was given Benadryl for her rash and itching. Bed became available at [facility] on 11/15/2019 5 in the afternoon and transport was arranged. She was discharged in stable condition. Discharge diagnoses: Suspected failing common bile duct stent History of carcinoid tumor History of liver transplant GERD Anxiety/depression Essential hypertension History of PE Varices Physical Exam Const alert, oriented x3, no apparent distress, average body habitus and no limitations Constitutional Narrative: Middle-aged, white female sitting up in bed, currently appears comfortable and nontoxic, nursing at bedside Exam Limitations: no limitations HEENT normocephalic, head/scalp atraumatic and moist oral mucous membranes Resp normal respiratory effort, no retractions, no use of accessory muscles and clear to auscultation bilaterally Auscultation: Negative for rales, rhonchi or wheezes Cardio regular rate, regular rhythm, S1 normal heart sound, S2 normal heart sound, no murmurs, no rub, no gallops and no clicks GI normal to inspection, nondistended, normoactive bowel sounds and soft to palpation GI Narrative: Mild diffuse nonspecific tendon tenderness Extremity no clubbing, cyanosis or edema Extremity Narrative: 2+ pedal pulses Neuro oriented x3, moves all extremities and no focal motor deficits Speech: speech normal Psych affect normal Psych Narrative: Extremely pleasant, eye contact is good and patient interacts appropriately Weight / BMI Weight Weight: 76.43 kg Body Mass Index (BMI) 28.0 ABG / Lab / Microbiology Data 11/14/24 06:02 11/14/24 06:02 Laboratory: Laboratory Results - last 24 hr 11/14/24 06:02: WBC 4.2 L, RBC 3.76 L, Hgb 10.8 L, Hct 34.0 L, MCV 90.4, MCH 28.7, MCHC 31.8 L D, RDW Std Deviation 48.0 H, RDW Coeff of Josy 14.5, Plt Count 105 L, MPV 10.9, Immature Gran % (Auto) 0.500, Neut % (Auto) 77.1 H, Lymph % (Auto) 13.3 L, [place] % (Auto) 7.0, Eos % (Auto) 1.9, Baso % (Auto) 0.2, Absolute Neuts (auto) 3.2, Absolute Lymphs (auto) 0.55 L, Nucleated RBC % 0, PT 15.2 H, INR 1.2, Sodium 137, Potassium 3.4, Chloride 102, Carbon Dioxide 22.5, Anion Gap 12, BUN 10, Creatinine 0.91, Estim Creat Clear Calc 78.15, Est GFR (MDRD) Non-Af 78, BUN/Creatinine Ratio 11.3, Glucose 128 H, Calcium 8.4, Total Bilirubin 4.56 H, AST 100 H, ALT 103 H, Alkaline Phosphatase 312 H, Total Protein 7.0, Albumin 3.5, Globulin 3.5, Albumin/Globulin Ratio 1.0 Microbiology: Microbiology 11/13/24 00:20 Urine, Clean Catch Urine Culture - Preliminary Culture exhibits no growth. 11/13/24 00:20 Mucosa - Nose SARS-CoV-2, Influenza & RSV (PCR) - Final D/C Instructions DC O2, CPAP, BIPAP Needs Home O2 Discharge instructions: No Meaningful Use Info Meaningful Use Meaningful Use Diagnoses (Choose all that apply): None applicable Ischemic Stroke Statin Dosing Therapy Reference: STATIN DOSE THERAPY REFERENCE: * Patients > 75 years receive moderate or high dose statin therapy. * Patients 75 years or YOUNGER should receive HIGH intensity statin dose unless contraindicated. You will be required to document reason for non-treatment if statin daily dose does not meet guidelines. HIGH DOSE STATIN THERAPY DAILY Atorvastatin > than or = to 40 mg Rosuvastatin > than or = to 20 mg Amlodipine + Atorvastatin > than or = to 2.5/40 mg Ezetimibe + Simvastatin 10/80 mg Simvastatin 80mg Discharge Plan Admission Admit Date/Time: 11/13/24 18:39 Primary Reason for Your Visit: Right upper quadrant pain/pruritus Attending Provider: Annie Edouard Primary Care Provider: Zachary Tijerina Consulting Providers: Krystle Brooks Discharge Orders/Prescriptions Prescriptions: No Action tacrolimus 1 MG capsule 2 mg PO BID Patient Comments: Antirejection medication metoprolol tartrate 25 MG tablet 25 mg PO BID PRN (Reason: Blood Pressure Elevation) Rx Instructions: Take twice daily for BP> 160/100 omeprazole 40 mg capsule,delayed release(DR/EC) 40 mg PO DAILY Qty: 30 1RF lisinopril 20 mg tablet 20 mg PO DAILY venlafaxine 150 mg capsule,extended release 24hr 150 mg PO DAILY Referrals / Follow Up: Zachary Tijerina MD [Primary Care Provider] - Disposition Disposition (needs filled in before D/C Order can be placed): Acute Care Hospital Charges/Coding Visit Charges Inpatient E&M: 95603 Disch Hosp
--- NOTE | 2024-11-14 16:16 | NURSING ---
Report called to Silvestre Guillory RN at [facility]
== END 2024-11-14 17:00 | disposition short-term general hospital (02) | DRG 445 ==
LOC: ED 11-13 06:06 → MS3 11-13 16:28
PROVIDERS: Emergency Medicine; Admitting Provider Internal Medicine; Emergency Provider Emergency Medicine; PCP Internal Medicine; Visit Provider Internal Medicine
DX: K83.1 Obstruction of bile duct (principal); Z94.4 Liver transplant status; T85.590A Other mechanical complication of bile duct prosthesis, initial encounter; D69.6 Thrombocytopenia, unspecified; D64.9 Anemia, unspecified; F32.A Depression, unspecified; I10 Essential (primary) hypertension; D3A.00 Benign carcinoid tumor of unspecified site; K83.8 Other specified diseases of biliary tract; K21.9 Gastro-esophageal reflux disease without esophagitis; F41.9 Anxiety disorder, unspecified; I86.4 Gastric varices; N28.1 Cyst of kidney, acquired; N83.202 Unspecified ovarian cyst, left side; N83.201 Unspecified ovarian cyst, right side; N83.8 Other noninflammatory disorders of ovary, fallopian tube and broad ligament; Z86.711 Personal history of pulmonary embolism; N28.89 Other specified disorders of kidney and ureter; Z96.89 Presence of other specified functional implants; R91.8 Other nonspecific abnormal finding of lung field; R16.1 Splenomegaly, not elsewhere classified; R51.9 Headache, unspecified; Z79.899 Other long term (current) drug therapy; Z88.5 Allergy status to narcotic agent; Z88.1 Allergy status to other antibiotic agents; Y73.2 Prosthetic and other implants, materials and accessory gastroenterology and urology devices associated with adverse incidents; Z75.1 Person awaiting admission to adequate facility elsewhere; R21 Rash and other nonspecific skin eruption; T36.8X5A Adverse effect of other systemic antibiotics, initial encounter; Y92.239 Unspecified place in hospital as the place of occurrence of the external cause
CPT/HCPCS: 36415; 71275; 74177; 80053; 80197; 81001; 83605; 84484; 85025; 85610; 85730; 87040; 87086; 87631; 93005; 99284; J2185; Q9967; A4216; J2405

== ENCOUNTER 2025-04-09 16:13 | Emergency (ER) | payer MEDICARE, SELFPAY ==
[2025-04-09 16:14] VITALS: BP 150/86; PULSE 84; RESP 16; TEMP 36.6; O2SAT 99; BMI 23.3
--- NOTE | 2025-04-09 16:25 | EKG12_ITS ---
Test Reason : Blood Pressure : */* mmHG Vent. Rate : 81 BPM Atrial Rate : 81 BPM P-R Int : 80 ms QRS Dur : 108 ms QT Int : 378 ms P-R-T Axes : -14 -48 75 degrees QTcB Int : 439 ms Sinus rhythm with short NV Left anterior fascicular block Minimal voltage criteria for LVH, may be normal variant ( [place] product ) Abnormal ECG Confirmed by OMA SHIPMAN, ZACK ([id number]), fashion editor JUDITH GUEVARA ([id number]) on 04/12/2025 7:32:56 AM Referred By: Confirmed By: ZACK ERNANDEZ MD
[2025-04-09 16:47] LABS: Hematocrit 28.2 % (37-47); Hemoglobin 9.1 g/dL (12.0-15.0); Immature Granulocytes Count 0.130 X10^3/uL (0.0-0.0); Mean Corp Hgb Conc 32.3 g/dL (32-36); Mean Corpuscular Volume 80.1 fL (81-99); Mean Platelet Vol. 9.7 fl (6.2-12.0); NRBC Flagged by Analyzer 0 % (0-5); POSITIVE DIFFERENTIAL YES; POSITIVE MORPHOLOGY YES; Platelet Count 114 K/mm3 (150-450); RBC Distribution Width CV 21.5 % (11.6-14.6); RBC Distribution Width SD 59.1 fl (35.1-43.9); Red Blood Count 3.52 M/mm3 (4.2-5.4); White Blood Count 13.2 K/mm3 (4.4-11.0)
[2025-04-09] MEDS: 0.9% Normal Saline (1000mL) 1,000 ML 999 ML IV ×2 (16:50→18:47)
[2025-04-09 16:55] LABS: Differential Indicated SCAN CRITERIA MET
--- NOTE | 2025-04-09 17:19 | EX.ED.DYSGE1 ---
HPI History of Present Illness Chief Complaint: Abn Labs Narrative Narrative: Presents here with mother referred from oncology office cramping with magnesium level 1.4 from drawl in the office. Concerns for dehydration also. 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 Chemotherapy started just finished her fifth treatment which was biweekly. One of the treatments 48-hour infusion for which she return to the office to get removed. This was started up at [facility]. She states on a for regimen chemotherapy. She does have a history of carcinoid tumor that affected her liver leading to a liver transplant. She states also affected her breast with bilateral mastectomy previously. Previous removal of her gallbladder and appendix in the past. She states with her infusions she would initially have diarrhea lead to cramping in her legs. She has not started diarrhea on this round. This had leg cramping. She is sent here for fluids and magnesium placement. Denies chest pains or palpitations. She denies any fever. Prior similar symptoms: Yes PFSH [facility] Medical History Anxiety Depression GERD (gastroesophageal reflux disease) Non-smoker Hypertension Pulmonary embolism DVT (deep venous thrombosis) Migraines Stenosis of common bile duct Carcinoid tumor Diarrhea History of migraine Pulmonary emboli Home Medications ?Medication ?Instructions ?Recorded ?Last Taken ?Type tacrolimus 1 mg capsule, 2 mg PO BID anti rejection 10/28/13 08/07/18 06:30 History immediate-release metoprolol tartrate 25 mg tablet 25 mg PO BID PRN Blood Pressure 08/07/18 08/07/18 06:30 History Elevation lisinopril 20 mg tablet 20 mg PO DAILY 12/27/23 Unknown History omeprazole 40 mg capsule,delayed 40 mg PO DAILY #30 caps 05/14/24 Unknown Rx release venlafaxine 150 mg 150 mg PO DAILY 11/13/24 Unknown History capsule,extended release 24 hr Allergy/AdvReac Type Severity Reaction Status Date / Time piperacillin (From Zosyn) Allergy Mild Itching Verified 04/09/25 16:17 and rash tazobactam (From Zosyn) Allergy Mild Itching Verified 04/09/25 16:17 and rash morphine Allergy red line Verified 04/09/25 16:17 up her arm vancomycin Allergy red man Verified 04/09/25 16:17 syndrome Surgical History History of appendectomy History of cholecystectomy History of mastectomy History of liver transplant Social History Smoking Status: Never smoker ROS ROS ED Constitutional Constitutional ED: Denies chills, fever(s) or sweats ENT ENT ED: Denies sore throat Cardiovascular Cardiovascular: Denies chest pain, leg edema, palpitations or racing heartbeat Respiratory/Chest Respiratory/Chest: Denies cough, dyspnea or dyspnea on exertion Gastrointestinal Gastrointestinal: Denies abdominal pain, diarrhea, nausea or vomiting Genitourinary Genitourinary ED: Denies dysuria, hematuria or urinary frequency Musculoskeletal Musculoskeletal: Reports myalgias; Denies back pain, extremity pain or neck pain Integumentary Denies rash or wounds Neurologic Neurologic: Denies headache(s), paresthesias or weakness EXAM Physical Exam Const Vital Signs: 04/09/25 16:14 04/09/25 16:43 04/09/25 18:13 Temperature 97.8 F Temperature Source Oral Pulse Rate 84 84 Respiratory Rate 16 16 Respiratory Effort Normal Non-Labored Respiratory Pattern Normal Blood Pressure 150/86 H 140/86 H Blood Pressure Mean 107 104 Pulse Ox 99 99 Oxygen Delivery Method Room Air 04/09/25 20:00 04/09/25 21:34 Temperature 97.8 F Temperature Source Pulse Rate 85 84 Respiratory Rate 16 16 Respiratory Effort Respiratory Pattern Blood Pressure 143/81 H 136/83 H Blood Pressure Mean 101 100 Pulse Ox 99 100 Oxygen Delivery Method Room Air Positive well nourished and well developed General Appearance ED: well developed and NAD HEENT HEENT Narrative: Mild dry mucosal membranes. normocephalic and atraumatic Eyes General Eye ED: Yes normal appearance of both eyes Neck full ROM Chest Wall Chest Narrative: Right chest wall port which has been accessed by nursing clean, dry, intact. Chest: Negative for tenderness Resp normal respiratory effort and normal air movement Effort and Inspection: symmetric chest movement; Negative for respiratory distress Cardio regular rate, regular rhythm and no murmurs Peripheral Pulses: pulses 2+ throughout GI normal to inspection, nondistended, normoactive bowel sounds and non-tender Palpation: Negative for guarding or rebound tenderness present Extremity normal to inspection Extremity Narrative: Soft compartments of the lower extremities. Pulses intact distally. General Extremety ED: Negative for edema or tenderness General Extremity: Negative for edema Neuro oriented x3 and no sensory deficits noted Sensorium / Orientation: awake and alert Skin no rashes or lesions noted and no wounds MDM MDM MDM Narrative Medical decision making narrative: Interventions / MDM: Differential diagnosis: Hypomagnesemia, acute kidney injury, dehydration, chemotherapy Diagnosis considered but do not suspect: No neutropenic fever My EKG interpretation: Sinus rate of 81, no ST changes. T wave inversions anterior leads V1 V2. QTc 439. Similar from October 2024. Imaging independently reviewed and interpreted by myself: N/A External documents reviewed: Creatinine March 24 0.88, April 06 1.49. Test considered but not ordered:N/A ED course: Mild dry mucosal membranes reported hypomagnesemia outpatient today. None in the system. Will get IV recheck labs and magnesium will start IV fluids. EKG ordered chronic findings. 1744: Mag 1.4 slightly low 2 normal of 1.5-2.2 scale. She had SOURAV a creatinine of 1.8 last this past October was 0.9. Hemoglobin 9.1 white count 13.2. No urinary symptoms. No cough. I will order for IV magnesium and additional liter of fluids. 1754: [facility] had labs 3 days ago before her treatment started creatinine is 1.49, on March 24 16 days ago creatinine was 0.88. 1924: Reevaluation mild third way through her magnesium. Second liter fluids running. Clinically started to feel better. Patient be discharged after magnesium infusion and fluid boluses. Outpatient follow-up with her doctors to recheck labs. Re-evaluation: stable Disposition discussed with patient/family/significant other: Patient and family Case discussed with consulting clinician: N/A This note was generated with [employer] dictation software. It may contain incorrect words, spelling, and punctuation that were not noted in checking the note before signing. Lab Data Attestation: I reviewed the patient's lab results. Labs: Laboratory Results - last 24 hr 04/09/25 16:37 WBC 13.2 H RBC 3.52 L Hgb 9.1 L Hct 28.2 L MCV 80.1 L MCH 25.9 L MCHC 32.3 RDW Std Deviation 59.1 H RDW Coeff of Josy 21.5 H Plt Count 114 L MPV 9.7 Immature Gran % (Auto) 1.000 H Neut % (Auto) 94.4 H Lymph % (Auto) 2.9 L [place] % (Auto) 1.5 Eos % (Auto) 0.0 Baso % (Auto) 0.2 Absolute Neuts (auto) 12.5 H Absolute Lymphs (auto) 0.38 L Nucleated RBC % 0 Platelet Estimate SLT DEC Anisocytosis 1+ Ovalocytes 1+ Sodium 136 Potassium 3.7 Chloride 106 Carbon Dioxide 15.5 L Anion Gap 15 BUN 27 H Creatinine 1.87 H Estim Creat Clear Calc 33.11 L Est GFR (MDRD) Non-Af 33 L BUN/Creatinine Ratio 14.6 Glucose 204 H Calcium 7.4 L Magnesium 1.4 L Discharge Plan Triage Chief Complaint: Abn Labs ED Provider: Gen Good Dx/Rx/DC Orders Clinical Impression: Hypomagnesemia, Acute renal insufficiency, Dehydration, Chemotherapy adverse reaction, Muscle cramping Instructions: ED Dehydration (Adult), ED Leg Cramps, ED Renal Insufficiency Prescriptions: No Action tacrolimus 1 MG capsule 2 mg PO BID Patient Comments: Antirejection medication metoprolol tartrate 25 MG tablet 25 mg PO BID PRN (Reason: Blood Pressure Elevation) Rx Instructions: Take twice daily for BP> 160/100 omeprazole 40 mg capsule,delayed release(DR/EC) 40 mg PO DAILY Qty: 30 1RF lisinopril 20 mg tablet 20 mg PO DAILY venlafaxine 150 mg capsule,extended release 24hr 150 mg PO DAILY Primary Care Provider: Zachary Tijerina Referrals: Zachary Tijerina MD [Primary Care Provider] - Activity Restrictions/Additional Instructions: Magnesium 1.4 you are given 2 g IV replacement. Your creatinine 1.87 GFR of 33. 3 days ago creatinine was 1.49. Earlier this month it was normal at 0.88. You are given 2 L of fluid. Continue oral fluids for hydration at home. Follow-up with your doctor to recheck labs. White count 13.2. Print Language: German Disposition Disposition: Home, Self Care Discharge Date/Time: 04/09/25 21:59
[2025-04-09 17:27] LABS: Anion Gap 15 (5-15); BUN 27 mg/dL (4-19); BUN/Creat Ratio 14.6 RATIO (10-20); Calcium,Total 7.4 mg/dL (7.6-11.0); Carbon Dioxide 15.5 mmol/L (21.0-32.0); Chloride 106 mmol/L (98-108); Estimated Creatinine Clearance 33.11 ml/min (50-250); Glucose 204 mg/dL (70-99); Magnesium 1.4 mg/dL (1.5-2.2); Potassium 3.7 mmol/L (3.3-5.1)
[2025-04-09 17:32] LABS: Anisocytosis 1+
[2025-04-09 18:13] VITALS: BP 140/86; PULSE 84; RESP 16; O2SAT 99
[2025-04-09] MEDS: Magnesium Sulfate 2 GM in Dextrose 5%-Water (100mL Bag) 100 ML IV (18:47)
[2025-04-09 20:00] VITALS: BP 143/81; PULSE 85; RESP 16; O2SAT 99
[2025-04-09 21:34] VITALS: BP 136/83; PULSE 84; RESP 16; TEMP 36.6; O2SAT 100
[2025-04-09] MEDS: 0.9% Saline Lock 10 ML Syringe IV (21:59)
== END 2025-04-09 21:59 | disposition home or self-care (01) ==
PROVIDERS: Emergency Provider Emergency Medicine; PCP Internal Medicine; Visit Provider Emergency Medicine
DX: E83.42 Hypomagnesemia (principal); Z94.4 Liver transplant status; E86.0 Dehydration; T45.1X5A Adverse effect of antineoplastic and immunosuppressive drugs, initial encounter; N28.9 Disorder of kidney and ureter, unspecified; R19.7 Diarrhea, unspecified; R25.2 Cramp and spasm; Z90.13 Acquired absence of bilateral breasts and nipples; Z90.49 Acquired absence of other specified parts of digestive tract; K21.9 Gastro-esophageal reflux disease without esophagitis; I10 Essential (primary) hypertension
CPT/HCPCS: 36591; 80048; 83735; 85025; 93005; 96361; 96365; 96366; 99285; A4216

== ENCOUNTER 2025-04-26 15:11 | Emergency (ER) | payer MEDICARE, SELFPAY ==
[2025-04-26 15:12] VITALS: BP 154/84; PULSE 75; RESP 16; TEMP 36.4; O2SAT 100; BMI 22.6
--- NOTE | 2025-04-26 16:20 | EDS_ITS ---
HPI History of Present Illness Chief Complaint: Abscess Detail of Chief Complaint: Abscess posterior right thigh Informant: patient Onset/Context/Timing Onset: Weeks Context: Sudden Onset Timing: Continuous Quality: Abscess Location: Posterior mid right thigh Current Severity: Moderate Maximum Severity: Moderate Worsened by: Patient is on chemo and immunosuppressive meds Relieved by: Nothing Associated Symptoms Associated Symptoms: No constitutional symptoms Narrative Narrative: Patient is a 50-year-old female. She was seen on April 21. She was placed on cephalexin 500 mg 3 times daily. Patient is on immunosuppressive meds i.e. 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 She denies history of medic fever, heart murmur or mitral prolapse. She denies drainage from the area. She states she is compliant with the cephalexin. She has no allergy to sulfa. 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 She denies fever, chills night sweats. She denies any other complaints or symptoms at this time. Prior similar symptoms: No Recent Illness/Hospitalization: No PFSH PFS Medical History Anxiety Depression GERD (gastroesophageal reflux disease) Non-smoker Hypertension Pulmonary embolism DVT (deep venous thrombosis) Migraines Stenosis of common bile duct Carcinoid tumor Diarrhea History of migraine Pulmonary emboli Home Medications ?Medication ?Instructions ?Recorded ?Last Taken ?Type tacrolimus 1 mg capsule, 2 mg PO BID anti rejection 0 10/28/13 08/07/18 06:30 History immediate-release metoprolol tartrate 25 mg tablet 25 mg PO BID PRN Bloo d Pressure 08/07/18 08/07/18 06:30 History Elevation lisinopril 20 mg tablet 20 mg PO DAILY 12/27/23 Unkn own History omeprazole 40 mg capsule,delayed 40 mg PO DAILY #30 ca ps 05/14/24 Unknown Rx release venlafaxine 150 mg 150 mg PO DAILY 11/13/24 Unk nown History capsule,extended release 24 hr sulfamethoxazole 800 1 tab PO BID #14 TABLETS 04/12 Unknown Rx mg-trimethoprim 160 mg tablet Allergy/AdvReac Type Severity Reaction Status Date / Time piperacillin (From Zosyn) Allergy Mild Itching Verified 04/26/25 15:15 and rash tazobactam (From Zosyn) Allergy Mild Itching Verified 04/26/25 15:15 and rash morphine Allergy red line Verified 04/26/25 15:15 up her arm vancomycin Allergy red man Verified 04/26/25 15:15 syndrome Surgical History History of appendectomy History of cholecystectomy History of mastectomy History of liver transplant Social History Smoking Status: Never smoker ROS ROS ED Constitutional Constitutional ED: Denies chills, fever(s), subjective, sweats or weight loss Cardiovascular Cardiovascular: Denies chest pain, palpitations or racing heartbeat Respiratory/Chest Respiratory/Chest: Denies cough, dyspnea or dyspnea on exertion Integumentary Reports abscess; Denies Abrasions or rash Neurologic Neurologic: Denies paresthesias or weakness Endocrine Endocrinology: Denies cold intolerance or heat intolerance Hematologic/Lymphatic Hematologic/Lymphatic: Reports systems reviewed and no addt'l complaints, except as documented EXAM Physical Exam Const Vital Signs: 04/26/25 15:12 Temperature 97.6 F L Temperature Source Oral Pulse Rate 75 Respiratory Rate 16 Blood Pressure 154/84 H Blood Pressure Mean 107 Pulse Ox 100 Oxygen Delivery Method Room Air Positive well nourished and well developed General Appearance ED: well developed and NAD HEENT Reports moist mucous membranes HEENT Narrative: Head is atraumatic and normocephalic. Ears normal. Eyes PERRL and EOMs intact bilaterally General Eye ED: Negative for pale conjunctiva or scleral icterus Resp normal respiratory effort and clear to auscultation bilaterally Cardio regular rate, regular rhythm, S1 normal heart sound, S2 normal heart sound and no murmurs Extremity normal to inspection Extremity Narrative: Patient has an abscess posterior mid right thigh. There is fluctuance. There appears to be multiple pockets. This is concerning for MRSA. Will add Bactrim to her present antibiotic regimen. Suspect she did not get better due to the fact that she was placed on cephalexin and concern that this is MRSA and treatment for an abscess is I&D. There is no lymphangitis. There is no neurovasc Otomize to the right lower extremity. Neuro oriented x3 and CN's II-XII intact bilaterally Sensorium / Orientation: alert Psych mental status grossly normal Skin no rashes or lesions noted and No no wounds Rashes: No rashes noted MDM MDM MDM Narrative Medical decision making narrative: Patient on immunosuppressive meds due to the fact that she is a liver recipient and being treated for chemo. She has no constitutional symptoms. She has an abscess and concern this represents MRSA. Will add Bactrim to her present antibiotic regimen. She will need an I&D of the abscess. Will obtain consent. Will anesthetize area and perform incision and drainage. Procedure note to follow. Procedures Other Procedures Procedure(s): Incision and drainage posterior mid right thigh abscess. Patient was prepped Sterile manner. Area was anesthetized with lidocaine by local infiltration field block. There is additional lidocaine placed because of the depth of the wound. Incision was made using a 10 blade. Incision was 2 cm in length. Blunt dissection was undertaken. Cavity was irrigated. There is a significant defect. A wick was not required. Discharge Plan Triage Chief Complaint: Abscess ED Provider: Jeffry Merino Dx/Rx/DC Orders Clinical Impression: Abscess of right thigh, Carcinoid tumor, Liver transplant recipient Instructions: ED Abscess Incision And Drainage Prescriptions: New sulfamethoxazole-trimethoprim 800-160 mg tablet 1 tab PO BID Qty: 14 0RF No Action tacrolimus 1 MG capsule 2 mg PO BID Patient Comments: Antirejection medication metoprolol tartrate 25 MG tablet 25 mg PO BID PRN (Reason: Blood Pressure Elevation) Rx Instructions: Take twice daily for BP> 160/100 omeprazole 40 mg capsule,delayed release(DR/EC) 40 mg PO DAILY Qty: 30 1RF lisinopril 20 mg tablet 20 mg PO DAILY venlafaxine 150 mg capsule,extended release 24hr 150 mg PO DAILY Primary Care Provider: Zachary Tijerina Referrals: Zachary Tijerina MD [Primary Care Provider] - 2 Days for wound check Print Language: Vietnamese Disposition Disposition: Home, Self Care
[2025-04-26] MEDS: Smz/Tmp Ds Tablet 1 TABLET PO (16:27)
[2025-04-26] MEDS: Lidocaine 1% (20 ml mdv) 20 ML Vial INFILT (16:27)
[2025-04-26 17:12] VITALS: BP 160/88; PULSE 84; RESP 18; TEMP 36.2; O2SAT 100
== END 2025-04-26 17:41 | disposition home or self-care (01) ==
PROVIDERS: Emergency Provider Emergency Medicine; PCP Internal Medicine; Visit Provider Emergency Medicine
DX: L02.415 Cutaneous abscess of right lower limb (principal); Z94.4 Liver transplant status; D3A.00 Benign carcinoid tumor of unspecified site; I10 Essential (primary) hypertension; F41.9 Anxiety disorder, unspecified; F32.A Depression, unspecified; K21.9 Gastro-esophageal reflux disease without esophagitis; Z86.711 Personal history of pulmonary embolism; Z79.899 Other long term (current) drug therapy
CPT/HCPCS: 10060; 87070; 87077; 87186; 87205; 99282